=== PATIENT | female | born 1970 | race Caucasian/White ===

== ENCOUNTER → 2017-05-02 14:12 | Outpatient (CLI) | payer OTHER, SELFPAY ==
[2017-04-13 13:53] VITALS: BP 146/95
[2017-04-18 13:37] VITALS: BMI 30.9
--- NOTE | 2017-05-02 14:15 | RAD_ITS ---
STUDY: X-RAY - LEFT ANKLE REASON FOR EXAM: Female, 46 years old. Follow-up TECHNIQUE: 3 view(s) of the ankle. COMPARISON: 04/18/2017. FINDINGS: Normal visualized distal tibia and fibula. Normal medial and lateral malleoli. Normal tibiotalar articulation and ankle mortise. Normal visualized talus. Small plantar calcaneal spur.. The visualized subtalar, talonavicular, calcaneocuboid and tarsal articulations are normal. The soft tissue structures are unremarkable. RAD/Ankle min 3 Views IMPRESSION: Normal x-ray examination of the ankle. Electronically Signed: Anderson Morris DO at 23:58 EST , Service support ,
--- NOTE | 2017-05-02 14:15 | RAD_ITS ---
STUDY: X-RAY - LEFT TIBIA AND FIBULA REASON FOR EXAM: Female, 46 years old. History fracture TECHNIQUE: 2 view(s) of the tibia and fibula were obtained. COMPARISON: 04/13/2017. FINDINGS: Normal visualized tibia. Closed mildly displaced oblique fracture proximal fibula. The soft tissue structures are unremarkable. RAD/Tibia & Fibula 2 Views IMPRESSION: No change to the appearance to the mildly displaced proximal fibular fracture. Electronically Signed: Anderson Morris DO at 23:56 EST , Service support ,
== END ==
PROVIDERS: Family Provider Nurse Practitioner Family; PCP Nurse Practitioner Family; Visit Provider Orthopaedic Surgery
DX: S82.832A Other fracture of upper and lower end of left fibula, initial encounter for closed fracture (principal); X58.XXXA Exposure to other specified factors, initial encounter; Y93.9 Activity, unspecified; Y92.9 Unspecified place or not applicable; Y99.9 Unspecified external cause status
CPT/HCPCS: 73590; 73610

== ENCOUNTER → 2017-05-30 14:03 | Outpatient (CLI) | payer OTHER, SELFPAY ==
--- NOTE | 2017-05-30 14:05 | RAD_ITS ---
STUDY: X-RAY - LEFT TIBIA AND FIBULA REASON FOR EXAM: Female, 46 years old. Fracture TECHNIQUE: 2 view(s) of the tibia and fibula were obtained. COMPARISON: May 02, 2017 FINDINGS: Normal visualized tibia. Stable alignment of a spiral nondisplaced fracture of the proximal fibular diaphysis. Callus at the fracture site has progressed. The soft tissue structures are unremarkable. RAD/Tibia & Fibula 2 Views IMPRESSION: Stable alignment of a healing proximal fibular fracture. Electronically Signed: Mendel Blackwood MD at 7:39 EST Tel , Service support ,
== END ==
PROVIDERS: Family Provider Nurse Practitioner Family; PCP Nurse Practitioner Family; Visit Provider Orthopaedic Surgery
DX: S82.832A Other fracture of upper and lower end of left fibula, initial encounter for closed fracture (principal); X58.XXXA Exposure to other specified factors, initial encounter; Y93.9 Activity, unspecified; Y92.9 Unspecified place or not applicable; Y99.9 Unspecified external cause status
CPT/HCPCS: 73590

== ENCOUNTER → 2018-06-19 11:25 | Outpatient (CLI) | payer OTHER, SELFPAY ==
[2018-06-19 09:05] VITALS: BMI 30.9
--- NOTE | 2018-06-19 11:29 | RAD_ITS ---
STUDY: X-RAY - LEFT TIBIA AND FIBULA REASON FOR EXAM: Female, 47 years old. Fracture one year ago. Pain and swelling in the ankle. TECHNIQUE: 2 view(s) of the tibia and fibula were obtained. COMPARISON: May 30, 2017. FINDINGS: Normal visualized tibia. Interval complete healing of the proximal fibular fracture seen on the prior study. There is no acute fracture or dislocation. The knee and ankle are unremarkable. The soft tissue structures are unremarkable. RAD/Tibia & Fibula 2 Views IMPRESSION: Healed fracture of the proximal fibula without acute abnormality. Electronically Signed: Paul Olivia DO at 15:36 EDT Tel [phone], Service support ,
== END ==
LOC: RAD 11:27
PROVIDERS: Family Provider Internal Medicine; PCP Internal Medicine; Referring Provider Nurse Practitioner Family; Visit Provider Nurse Practitioner Family
DX: S82.832A Other fracture of upper and lower end of left fibula, initial encounter for closed fracture (principal); X58.XXXA Exposure to other specified factors, initial encounter; Y93.9 Activity, unspecified; Y92.9 Unspecified place or not applicable; Y99.9 Unspecified external cause status
CPT/HCPCS: 73590

== ENCOUNTER → 2018-08-26 09:44 | Outpatient (CLI) | payer OTHER, SELFPAY ==
[2018-08-26 08:52] VITALS: BMI 30.7
[2018-08-26 09:47] LABS: Mucous, Urine 0 SEEN /hpf (<or=2+)
[2018-08-26 12:14] LABS: Color, Urine Yellow (Yellow); Glucose, Dipstick Normal (Normal); Ketone-Dipstick Negative (Negative); Leukocyte Esterase-Dipstick 500 /ul (Negative); Nitrite-Dipstick Positive (Negative); Occult Blood-Urine 150 /ul (Negative); Protein-Dipstick 30 mg/dl (Negative); Urine Bilirubin Dipstick Negative (Negative); Urine Clarity Sl. Cloudy (Clear); Urine Urobilinogen Normal (Normal)
[2018-08-26 12:22] LABS: White Blood Cells >100 SEEN /hpf (0-5)
[2018-08-26 12:23] LABS: Red Blood Cells-Urine 5-10 SEEN /hpf (0-5); Squamous Epithelial Cells - UA 5-10 SEEN /hpf (5-10)
[2018-08-26 12:24] LABS: Bacteria 4+ /hpf (None Seen); Renal Epithelial Cells 0-5 SEEN /hpf (0-5)
== END ==
PROVIDERS: Family Provider Internal Medicine; PCP Internal Medicine; Visit Provider Internal Medicine
DX: R10.2 Pelvic and perineal pain (principal)
CPT/HCPCS: 81001

== ENCOUNTER → 2019-12-04 16:14 | Outpatient (CLI) | payer BC, SELFPAY ==
[2019-12-04 16:06] VITALS: BMI 30.5
--- NOTE | 2019-12-04 16:17 | RAD_ITS ---
STUDY: X-RAY - RIGHT FOOT CLINICAL: Female, 49 years old. foot and ankle swelling, no trauma TECHNIQUE: 3 view(s) of the foot. COMPARISON: None. FINDINGS: Normal talus, calcaneus, and tarsal bones. Small plantar calcaneal enthesophyte. Normal visualized subtalar, talonavicular, calcaneocuboid, tarsal and tarsometatarsal articulations. Normal metatarsi. Normal metatarsophalangeal joint of the great toe. Normal tibial and fibular sesamoid bones. Normal interphalangeal joint of the great toe. Normal phalanges of the great toe. Normal second through fifth metatarsophalangeal joints. Normal interphalangeal joints and phalanges of the lesser toes. The soft tissue structures are unremarkable. RAD/Foot min 3 Views IMPRESSION: Normal x-ray examination of the foot. Electronically Signed: Evin Oconnell MD at 16:37 EDT Tel , Service support ,
--- NOTE | 2019-12-04 16:17 | RAD_ITS ---
STUDY: X-RAY - RIGHT ANKLE REASON FOR EXAM: Female, 49 years old. foot and ankle swelling, no trauma TECHNIQUE: 3 view(s) of the ankle. COMPARISON: None. FINDINGS: Normal visualized distal tibia and fibula. Normal medial and lateral malleoli. Normal tibiotalar articulation and ankle mortise. Normal visualized talus and calcaneus. Small plantar calcaneal enthesophyte. The visualized subtalar, talonavicular, calcaneocuboid and tarsal articulations are normal. The soft tissue structures are unremarkable. RAD/Ankle min 3 Views IMPRESSION: Normal x-ray examination of the ankle. Electronically Signed: Evin Oconnell MD at 16:40 EDT Tel , Service support ,
== END ==
PROVIDERS: PCP Internal Medicine; Referring Provider Physician Assistant; Visit Provider Physician Assistant
DX: M79.671 Pain in right foot (principal); M79.89 Other specified soft tissue disorders; M25.571 Pain in right ankle and joints of right foot; M25.471 Effusion, right ankle
CPT/HCPCS: 73610; 73630

== ENCOUNTER → 2020-07-27 12:02 | Outpatient (CLI) | payer BC, SELFPAY ==
[2020-07-27 11:13] VITALS: BMI 30.5
[2020-07-27 15:32] LABS: Absolute Lymphocyte Count 2.57 X10^3/uL (0.83-4.51); Absolute Neutrophil Count 5.8 X10^3/uL (2.0-7.7); Basophil# 0.09 X10^3/uL; Basophil% 0.9 % (0-1); Eosinophil# 0.48 X10^3/uL; Eosinophils% 4.8 % (0-5); Hematocrit 47.7 % (37-47); Hemoglobin 15.3 g/dL (12.0-15.0); Lymphocyte # 2.57 X10^3/ul (0.83-4.51); Lymphocyte % 25.9 % (19-41); Mean Corp Hgb Conc 32.1 g/dL (32-36); Mean Corpuscular Hgb 29.1 pg (27.0-32.0); Mean Corpuscular Volume 90.7 fL (81-99); Mean Platelet Vol. 10.5 fl (6.2-12.0); Monocyte% 9.1 % (0-10); NRBC Flagged by Analyzer 0 % (0-5); Neutrophil # 5.84 X10^3/uL (2.7-7.7); Neutrophil % 58.8 % (47-70); Platelet Count 287 K/mm3 (150-450); RBC Distribution Width CV 12.8 % (11.6-14.6); RBC Distribution Width SD 42.1 fl (35.1-43.9); Red Blood Count 5.26 M/mm3 (4.2-5.4); White Blood Count 9.9 K/mm3 (4.4-11.0)
[2020-07-27 16:10] LABS: Vitamin D,25 Hydroxy 20.4 ng/mL
[2020-07-27 16:22] LABS: ALB/GLOB Ratio 1.1 RATIO (0.9-2.4); AST(SGOT) 21 U/L (15-37); Alanine Aminotransfer ALT/SGPT 35 U/L (13-56); Albumin, Serum 3.9 g/dL (3.2-5.0); Alkaline Phosphatase 80 U/L (45-117); Anion Gap 6 (5-15); BUN 19 mg/dL (7-18); BUN/Creat Ratio 15.8 RATIO (10-20); Calcium,Total 9.7 mg/dL (8.5-10.1); Chloride 103 mmol/L (98-107); Cholesterol 247 mg/dL (200); EST Glomerular Filtration Rate 50 mL/min (>60); Est Glom Filt Rate - Afr Amer 61 mL/min (>60); Globulin 3.6 g/dL (2.2-4.2); Glucose 80 mg/dL (74-106); High Density Lipoprotein 42 mg/dL; Potassium 3.8 mmol/L (3.5-5.1); Protein, Total 7.5 g/dL (6.4-8.2); Sodium Level 140 mmol/L (136-145); T4 Free Direct 0.97 ng/dL (0.76-1.46); Thyroid Stim Hormone (TSH) 1.96 uIU/mL (0.358-3.74); Triglycerides 367 mg/dL; Very Low Density Lipoprotein 73 mg/dL (5-40)
== END ==
PROVIDERS: PCP Internal Medicine; Referring Provider Physician Assistant; Visit Provider Physician Assistant
DX: I10 Essential (primary) hypertension (principal)
CPT/HCPCS: 36415; 80053; 80061; 82306; 84439; 84443; 85025

== ENCOUNTER → 2020-08-06 08:09 | Outpatient (CLI) | payer BC, SELFPAY ==
[2020-07-27 11:13] VITALS: BMI 30.5
--- NOTE | 2020-08-06 08:11 | BI_ITS ---
MAMMOGRAPHY - BILATERAL SCREENING REASON FOR EXAM: Female, 50 years old. Routine annual screening examination. PERTINENT HISTORY: Non-contributory. TECHNIQUE: Digital bilateral breast viviane (3D mammographic acquisition) in the CC and MLO projections. 2-D mediolateral oblique (MLO) and craniocaudad (CC) views of both breasts were obtained. CAD: Full Field Digital Mammography with Computer Added Detection was performed. COMPARISON: Comparison is made with prior examination dated 01/11/2016. FINDINGS: Breast Composition: The breasts are heterogeneously dense, which may obscure small masses. There are no dominant masses or suspicious calcifications. No other significant abnormalities are identified. There has been no significant change since the prior study. BI/SCRN MAMM (CAD)W/VIVIANE BILAT IMPRESSION: Stable bilateral screening mammogram. Yearly follow-up mammogram recommended. (A) ASSESSMENT CATEGORY: BIRADS Category 1: Negative. A letter regarding these results will be sent to the patient by the facility within 30 days. Approximately 10% of breast cancers are not detected by mammography. A normal mammogram should not delay biopsy of a clinically suspicious abnormality. [id number] Electronically Signed: Fredy Maynard MD at 9:05 EDT , Service support ,
--- NOTE | 2020-08-06 08:40 | US_ITS ---
STUDY: ABDOMINAL ULTRASOUND REASON FOR EXAM: Female, 50 years old. RUQ pain . Weight gain. TECHNIQUE: Transabdominal ultrasound was performed with real-time and static blanco scale imaging. TECHNICAL QUALITY: Adequate. COMPARISON: None. FINDINGS: Liver: The liver measures 17 cm. There is increased echogenicity consistent with fatty infiltration. The bile ducts are within normal limits. There is hepatic color flow. The direction of portal flow is hepatopetal. There is no demonstrated mass lesion. Portal vein measurement: Gallbladder: The patient is status post cholecystectomy. Common Bile Duct (C.B.D.): The common bile duct measures 5 mm. Pancreas: There is nonvisualization of the pancreas due to overlying bowel gas. Spleen: Normal size of the spleen. The spleen measures 10.1 cm x 4.2 cm x 6.4 cm. Right Kidney: Normal size of the right kidney. The right kidney measures 10.3 cm x 5.3 cm x 4.5 cm. Normal renal cortex. The right cortex measures 1.2 cm. There is no demonstrated renal mass or cyst. There is no right hydronephrosis. Left Kidney: Normal size of the left kidney. The left kidney measures 10 cm x 4.7 cm x 4.1 cm. Normal renal cortex. The left cortex measures 1.1 cm. There is no demonstrated renal mass or cyst. There is no left hydronephrosis. There is no ascites. US/Abdomen Complete IMPRESSION: Diffuse fatty infiltration of the liver. Electronically Signed: Fredy Maynard MD at 11:00 EDT , Service support ,
== END ==
PROVIDERS: PCP Internal Medicine; Referring Provider Physician Assistant; Visit Provider Physician Assistant
DX: Z12.31 Encounter for screening mammogram for malignant neoplasm of breast (principal); I10 Essential (primary) hypertension; R10.11 Right upper quadrant pain
CPT/HCPCS: 76700; 77063; 77067

== ENCOUNTER 2020-09-03 06:27 | Day surgery (SDC) | payer BC, SELFPAY ==
[2020-07-27 11:13] VITALS: BMI 30.5
[2020-08-12 11:03] VITALS: BMI 30.2
[2020-09-03 06:52] VITALS: BP 114/68; PULSE 77; RESP 18; TEMP 36.3; O2SAT 100; BMI 29.5
--- NOTE | 2020-09-03 06:59 | H&P.OPEN ---
HPI - General HPI Narrative FRANCES CASTANON, is a 50 F who presents for screening colonoscopy. Patient reports he is never had a colonoscopy in the past. She has no abdominal pain or blood in her stool. No family history of colon cancer. [facility] Medical History (Updated 09/03/20 @ 07:[address] Felipe Mondragon MD) Elevated BP without diagnosis of hypertension Hay fever History of edema History of lower leg fracture Smoker Wears partial dentures Home Medications ibuprofen 200 mg capsule 200 mg PO ONCE PRN 11/28/18 [History Last Taken Unknown] hydrochlorothiazide 25 mg tablet 25 mg PO DAILY #90 tab 07/21/20 [Rx Last Taken Unknown] cholecalciferol (vitamin D3) 50 mcg (2,000 unit) capsule 50 mcg PO DAILY 08/12/20 [History Last Taken Unknown] Allergy/AdvReac Type Severity Reaction Status Date / Time No Known Allergies Allergy Verified 09/01/20 11:28 Family History Mother Diabetes Hypertension Father Cancer Surgical History (Updated 09/01/20 @ 11:34 by Yasmin Verdin) Hx of cholecystectomy Social History Smoking Status: Current every day smoker tobacco type: cigarettes alcohol intake: never substance use type: does not use what type of physical activity do you participate in: walking frequency: daily Past Medical/Surgical History Planned Operation Planned Operative Procedure/s: COLONSCOPY OPEN ACCESS Previous Hospitalizations/Surgeries HX Hospitalizations: No Any Problems With Anesthesia: No You/Your Family Experience Fever (Hyperthermia) With Anes: No Cholinesterase deficiency: No Cardiovascular Hx Hypertension: Yes (CONTROLLED WITH MED) Respiratory Hx Sleep Apnea: No Hx Respiratory Tract Infection/Cold (presently): No Do You Snore Loudly (louder than talking or can be heard): No Do You Often Feel Tired/ Fatigued/ Sleepy Dring Daytime?: No Has Anyone Observed You Stop Breathing During Sleep?: No Result (for STOP score): Negative Smoking Status: Current every day smoker Neurological Does patient have nerve stimulator: No Reproduction : No Miscellaneous Recent Exposure to Contagious Disease: No Allergies No Known Allergies Allergy (Verified 09/01/20 11:28) Discharge Is Pt Admitted From a Longterm, or a Nursing Home: No After D/C, Where Do you Plan to Go: Return Home Vital Signs Vital Signs Vital Signs: 09/03/20 06:50 09/03/20 06:52 Temperature 97.4 F L Temperature Source Temporal Pulse Rate 77 Respiratory Rate 18 Respiratory Pattern Normal Blood Pressure 114/68 Blood Pressure Mean 83 Blood Pressure Source Monitor Blood Pressure Position Semi-Fowlers Blood Pressure Location Left Arm Pulse Ox 100 Oxygen Delivery Method Room Air Weight Weight: 177 lb 7.554 oz Body Mass Index (BMI) 29.5 Physical Exam Const alert and oriented x3 Resp normal respiratory effort and normal air movement Cardio regular rate and regular rhythm GI soft to palpation, non-tender and non-distended Assessment & Plan Assessment/Plan (1) Screen for colon cancer: PLAN: Patient here for screening colonoscopy I explained endoscopy in detail to the patient. I explained the risks including but not limited to stroke or heart attack with anesthesia, perforation of the GI tract, bleeding, infection. I explained that any of these could necessitate further emergency surgery. The patient understands and all questions were answered sufficiently. The patient wishes to proceed with procedure. Felipe Mondragon MD Pager: [facility] [address] [place] [address], [address] [place] [address] Office: Surgery Risks - Colonoscopy Risks Include but are not Limited To: Risks include but are not limited to: Bleeding, perforation requiring further surgery, inability to complete colonoscopy requiring barium enema.
[2020-09-03] MEDS: Lactated Ringers 1,000 ML 100 ML IV (07:04)
--- NOTE | 2020-09-03 08:01 | OP.CCLET_ITS ---
09/03/2020 Jazzy Yañez MD [address] [place] [address] [place] [address] Re : Colonoscopy procedure for Arabella Mo Dear Dr. Yañez This procedure was performed on Thursday, September 03, 2020. My impressions and recommendations are as follows: Impressions : - The entire examined colon is normal on direct and retroflexion views. - No specimens collected. Recommendations : - Discharge patient to home. - Resume previous diet. - Continue present medications. - Repeat colonoscopy in 10 years for screening purposes. My findings are described in the full procedure note, which is enclosed. If I can be of further assistance, please feel free to contact me at Doctor phone number(s): , Work: . Sincerely, Felipe Mondragon MD 09/03/2020 8:00:36 AM This report has been signed electronically.
--- NOTE | 2020-09-03 08:01 | OP.COLON_ITS ---
Patient Name: Arabella Mo Procedure Date: 09/03/2020 7:07 AM Date of : 1970 Age: 50 Procedure: Colonoscopy Indications: Screening for colorectal malignant neoplasm Providers: Felipe Mondragon MD Referring MD: Jazzy Yañez MD Medicines: Monitored Anesthesia Care Patient Profile: This is a 50 year old female. Refer to note in patient chart for documentation of history and physical. Last Colonoscopy: none. The patient's first colonoscopy is today. Complications: No immediate complications. Procedure: Pre-Anesthesia Assessment: - Prior to the procedure, a History and Physical was performed, and patient medications and allergies were reviewed. The patient's tolerance of previous anesthesia was also reviewed. The risks and benefits of the procedure and the sedation options and risks were discussed with the patient. All questions were answered, and informed consent was obtained. Prior Anticoagulants: The patient has taken no previous anticoagulant or antiplatelet agents. After reviewing the risks and benefits, the patient was deemed in satisfactory condition to undergo the procedure. After I obtained informed consent, the scope was passed under direct vision. Throughout the procedure, the patient's blood pressure, pulse, and oxygen saturations were monitored continuously. The pediatric colonoscope was introduced through the anus and advanced to the cecum, identified by appendiceal orifice and ileocecal valve. The colonoscopy was performed without difficulty. The patient tolerated the procedure well. The quality of the bowel preparation was adequate to identify polyps 6 mm and larger in size. Scope In: 7:34:21 AM Scope Withdrawal Time 0 hours 6 minutes 57 seconds Scope Out: 7:56:24 AM Total Procedure Duration Time 0 hours 22 minutes 3 seconds Findings: The entire examined colon appeared normal on direct and retroflexion views. Impression: - The entire examined colon is normal on direct and retroflexion views. - No specimens collected. Recommendation: - Discharge patient to home. - Resume previous diet. - Continue present medications. - Repeat colonoscopy in 10 years for screening purposes. Procedure Code(s): --- Professional --- 05192, Colonoscopy, flexible; diagnostic, including collection of specimen(s) by brushing or washing, when performed (separate procedure) Diagnosis Code(s): --- Professional --- Z12.11, Encounter for screening for malignant neoplasm of colon CPT copyright 2017 [employer]. All rights reserved. The codes documented in this report are preliminary and upon chief of vital statistics review may be revised to meet current compliance requirements. Felipe Mondragon MD 09/03/2020 8:00:36 AM This report has been signed electronically. Number of Addenda: 0 Note Initiated On: 09/03/2020 7:07 AM
[2020-09-03 08:02] VITALS: BP 107/64; BP 114/68; PULSE 69; RESP 14; TEMP 36.4; O2SAT 98
[2020-09-03 08:10] VITALS: BP 114/68; BP 119/71; PULSE 66; RESP 16; O2SAT 100
[2020-09-03 08:15] VITALS: BP 114/68; BP 123/60; PULSE 62; RESP 18; O2SAT 100
[2020-09-03 08:18] VITALS: BP 114/68; BP 121/66; PULSE 54; RESP 18; TEMP 36.4; O2SAT 100
[2020-09-03 08:30] VITALS: BP 114/68
== END 2020-09-03 08:44 ==
LOC: EN 06:27 → AC 06:29
PROVIDERS: PCP Internal Medicine; Referring Provider Internal Medicine; Visit Provider Surgery
PROC: 0DJD8ZZ Inspection of Lower Intestinal Tract, Via Natural or Artificial Opening Endoscopic (ICD-10-PCS; CPT 45378; principal; 2020-09-03 07:25)
DX: Z12.11 Encounter for screening for malignant neoplasm of colon (principal); R03.0 Elevated blood-pressure reading, without diagnosis of hypertension; Z20.822 Contact with and (suspected) exposure to COVID-19; F17.210 Nicotine dependence, cigarettes, uncomplicated; Z79.899 Other long term (current) drug therapy
CPT/HCPCS: 45378; 87426; C9803; J7120; J2405

== ENCOUNTER → 2021-08-24 | Outpatient (CLI) | payer BC, SELFPAY ==
[2021-08-24 12:22] LABS: Absolute Lymphocyte Count 2.06 X10^3/uL (0.83-4.51); Absolute Neutrophil Count 6.1 X10^3/uL (2.0-7.7); Basophil# 0.07 X10^3/uL; Basophil% 0.8 % (0-1); Eosinophils% 4.3 % (0-5); Hematocrit 46.7 % (37-47); Hemoglobin 15.4 g/dL (12.0-15.0); Lymphocyte # 2.06 X10^3/ul (0.83-4.51); Lymphocyte % 22.1 % (19-41); Mean Corpuscular Hgb 30.1 pg (27.0-32.0); Mean Corpuscular Volume 91.4 fL (81-99); Mean Platelet Vol. 10.7 fl (6.2-12.0); Monocyte# 0.71 X10^3/uL; Monocyte% 7.6 % (0-10); NRBC Flagged by Analyzer 0 % (0-5); Neutrophil # 6.05 X10^3/uL (2.7-7.7); Neutrophil % 64.8 % (47-70); Platelet Count 285 K/mm3 (150-450); RBC Distribution Width CV 12.5 % (11.6-14.6); RBC Distribution Width SD 41.1 fl (35.1-43.9); Red Blood Count 5.11 M/mm3 (4.2-5.4); White Blood Count 9.3 K/mm3 (4.4-11.0)
[2021-08-24 12:45] LABS: ALB/GLOB Ratio 1.1 RATIO (0.9-2.4); AST(SGOT) 19 U/L (15-37); Alanine Aminotransfer ALT/SGPT 31 U/L (13-56); Albumin, Serum 3.9 g/dL (3.2-5.0); Alkaline Phosphatase 74 U/L (45-117); Anion Gap 9 (5-15); BUN 25 mg/dL (7-18); BUN/Creat Ratio 18.8 RATIO (10-20); Calcium,Total 9.5 mg/dL (8.5-10.1); Chloride 103 mmol/L (98-107); Cholesterol 237 mg/dL (200); Creatinine, Serum 1.33 mg/dL (0.55-1.02); EST Glomerular Filtration Rate 44 mL/min (>60); Est Glom Filt Rate - Afr Amer 54 mL/min (>60); Globulin 3.5 g/dL (2.2-4.2); Glucose 100 mg/dL (74-106); High Density Lipoprotein 38 mg/dL; Potassium 3.3 mmol/L (3.5-5.1); Protein, Total 7.4 g/dL (6.4-8.2); Sodium Level 140 mmol/L (136-145); Triglycerides 364 mg/dL; Very Low Density Lipoprotein 73 mg/dL (5-40)
== END | disposition home or self-care (01) ==
LOC: BIMLAB 08:31
PROVIDERS: PCP Internal Medicine; Visit Provider Internal Medicine
DX: I10 Essential (primary) hypertension (principal); M10.9 Gout, unspecified
CPT/HCPCS: 36415; 80053; 80061; 84550; 85025

== ENCOUNTER → 2021-09-14 | Outpatient (CLI) | payer BC, SELFPAY ==
--- NOTE | 2021-09-14 12:48 | RAD_ITS ---
INDICATION: Right 1st MTP pain, possible gout EXAMINATION/TECHNIQUE: X-RAY - RIGHT XR Foot Min 3 Views 3 VIEWS COMPARISON: 12/04/2019 FINDINGS: No acute fracture or subluxation. Joint spaces are intact. Plantar calcaneal spurring. Minimal soft tissue swelling overlying the first MTP joint. No destructive or erosive osseous changes. No radiopaque foreign bodies. RAD/Foot min 3 Views IMPRESSION: Minimal soft tissue swelling overlying the first MTP joint without destructive or erosive changes to suggest underlying gout. Electronically Signed: Arsen Ingram, at 16:16 EDT ,
[2021-09-14 15:46] LABS: Anion Gap 3 (5-15); BUN 22 mg/dL (7-18); BUN/Creat Ratio 18.2 RATIO (10-20); Calcium,Total 9.4 mg/dL (8.5-10.1); Chloride 106 mmol/L (98-107); Cholesterol 211 mg/dL (200); Creatinine, Serum 1.21 mg/dL (0.55-1.02); EST Glomerular Filtration Rate 49 mL/min (>60); Est Glom Filt Rate - Afr Amer 60 mL/min (>60); Free T3 2.8 pg/mL (2.18-3.98); Glucose 80 mg/dL (74-106); High Density Lipoprotein 36 mg/dL; Sodium Level 140 mmol/L (136-145); T4 Free Direct 0.95 ng/dL (0.76-1.46); Thyroid Stim Hormone (TSH) 1.96 uIU/mL (0.358-3.74); Triglycerides 360 mg/dL; Uric Acid 4.9 mg/dL (2.6-6.0); Very Low Density Lipoprotein 72 mg/dL (5-40)
== END | disposition home or self-care (01) ==
PROVIDERS: PCP Internal Medicine; Visit Provider Physician Assistant
DX: M79.674 Pain in right toe(s) (principal); E04.1 Nontoxic single thyroid nodule; M10.9 Gout, unspecified; E78.5 Hyperlipidemia, unspecified
CPT/HCPCS: 36415; 73630; 80048; 80061; 84439; 84443; 84481; 84550

== ENCOUNTER → 2022-07-14 | Outpatient (CLI) | payer BC, SELFPAY ==
--- NOTE | 2022-07-14 12:04 | EKG12_ITS ---
Test Reason : PRE OP Blood Pressure : / mmHG Vent. Rate : 076 BPM Atrial Rate : 076 BPM P-R Int : 176 ms QRS Dur : 078 ms QT Int : 416 ms P-R-T Axes : 001 -35 021 degrees QTc Int : 468 ms Normal sinus rhythm Left axis deviation Abnormal ECG Confirmed by MARIE GARCIA, VIV ([id number]), scientific publications editor RACHANA REDDY ([id number]) on 07/17/2022 10:45:23 AM Referred By: Dank Harris Confirmed By:VIV SALAZAR MD
[2022-07-14 12:32] LABS: Hematocrit 47.3 % (37-47); Hemoglobin 15.6 g/dL (12.0-15.0); Mean Platelet Vol. 9.8 fl (6.2-12.0); Platelet Count 296 K/mm3 (150-450); RBC Distribution Width CV 12.3 % (11.6-14.6); RBC Distribution Width SD 40.5 fl (35.1-43.9); White Blood Count 8.8 K/mm3 (4.4-11.0)
[2022-07-14 12:55] LABS: Anion Gap -2 (5-15); BUN 15 mg/dL (7-18); BUN/Creat Ratio 13.4 RATIO (10-20); Calcium,Total 9.3 mg/dL (8.5-10.1); Chloride 109 mmol/L (98-107); Creatinine, Serum 1.12 mg/dL (0.55-1.02); EST Glomerular Filtration Rate 54 mL/min (>60); Est Glom Filt Rate - Afr Amer 65 mL/min (>60); Glucose 81 mg/dL (74-106); Potassium 3.7 mmol/L (3.5-5.1); Sodium Level 138 mmol/L (136-145)
== END | disposition home or self-care (01) ==
PROVIDERS: PCP Internal Medicine; Referring Provider Otolaryngology; Visit Provider Otolaryngology
DX: Z01.818 Encounter for other preprocedural examination (principal)
CPT/HCPCS: 36415; 80048; 85027; 93005

== ENCOUNTER → 2022-08-14 | Outpatient (CLI) | payer BC, SELFPAY ==
--- NOTE | 2022-08-14 11:00 | PHA_PTH ---
PATIENT: FRANCES CASTANON LOC: [facility] U#:[id number] AGE/SX: 52/F ROOM: RE08/14/[address]: Dr. Dank Harris MD : 1970 BED: DIS: 08/14/2022 SPEC #: [id number] RECD: 08/14/22 15:37 STATUS: TALI REQ #: [id number] EVELINE: 08/14/22 11:[address]: Dank Harris DEPT: SURGICAL PATHOLOGY RECD BY: Mya Encarnacion ENTERED: 08/15/22 07:50 SP TYPE: PHARYNX BX OTHR DR: Dr. Jazzy Yañez MD [facility] Tissues: Pharynx, NOS Procedures: Surgery Specimen Level IV HEADER OPERATION: Excision oropharyngeal mass left PRE-OP DIAGNOSIS: Oropharyngeal mass TISSUE SUBMITTED: Oropharyngeal mass MICROSCOPIC DIAGNOSIS Left oropharyngeal mass, biopsy: Squamous papilloma. AM:lisa 08/16/2022 MICROSCOPIC DESCRIPTION Slides are reviewed. GROSS DESCRIPTION Received in fixative is one container labeled with the patient's name and designated oropharyngeal mass. The specimen consists of a piece of todd mucosal tissue measuring 1.0 x 0.5 x 0.4 cm. The specimen is inked, bisected and submitted entirely in one cassette. / SJ:rg 08/15/2022 TC:1 CPT: 69810
== END | disposition home or self-care (01) ==
PROVIDERS: PCP Internal Medicine; Referring Provider Otolaryngology; Visit Provider Otolaryngology
DX: R22.1 Localized swelling, mass and lump, neck (principal)
CPT/HCPCS: 88305

== ENCOUNTER → 2024-10-06 | Outpatient (CLI) | payer BC, SELFPAY ==
[2024-10-06 12:33] LABS: Hematocrit 48.0 % (37-47); Hemoglobin 15.9 g/dL (12.0-15.0); Mean Corp Hgb Conc 33.1 g/dL (32-36); Mean Corpuscular Volume 88.2 fL (81-99); Mean Platelet Vol. 10.0 fl (6.2-12.0); Platelet Count 333 K/mm3 (150-450); RBC Distribution Width CV 13.1 % (11.6-14.6); RBC Distribution Width SD 41.4 fl (35.1-43.9); Red Blood Count 5.44 M/mm3 (4.2-5.4); White Blood Count 17.3 K/mm3 (4.4-11.0)
[2024-10-06 13:22] LABS: Free T3 2.3 pg/mL (2.18-3.98)
[2024-10-06 13:23] LABS: Anion Gap 12 (5-15); BUN 31 mg/dL (4-19); BUN/Creat Ratio 21.6 RATIO (10-20); CRP < 3.00 mg/L (0.0-3.0); Calcium,Total 9.4 mg/dL (7.6-11.0); Carbon Dioxide 25.3 mmol/L (21.0-32.0); Chloride 102 mmol/L (98-108); Glucose 139 mg/dL (70-99); Potassium 4.0 mmol/L (3.3-5.1); Uric Acid 9.8 mg/dL (2.6-6.0)
== END | disposition home or self-care (01) ==
LOC: LAB 11:12
PROVIDERS: PCP Internal Medicine; Referring Provider Nurse Practitioner Family; Visit Provider Nurse Practitioner Family
DX: M10.9 Gout, unspecified (principal); E04.1 Nontoxic single thyroid nodule
CPT/HCPCS: 36415; 80048; 84439; 84443; 84481; 84550; 85027; 86140

== ENCOUNTER 2024-10-08 08:23 | Emergency (ER) | payer BC, SELFPAY ==
[2024-10-08 08:24] VITALS: BP 151/80; PULSE 93; RESP 16; TEMP 36.6; O2SAT 100; BMI 30.4
--- NOTE | 2024-10-08 09:00 | EDS_ITS ---
HPI History of Present Illness Chief Complaint: General Illness Informant: patient Narrative Narrative: Presents for evaluation states not feeling well. Diarrhea started 5 days ago for per day had a couple today nonbloody. States nausea no vomiting. She has had headache. Symptoms started 2 days after being started on prednisone for gout by her PCP she stopped her prednisone 2 days ago. No recent antibiotics. She is never been on prednisone in the past. No fever chills or sweats. States lightheaded symptoms she is trying to keep up with oral fluids. No urinary symptoms. No upper respiratory symptoms. PFSH PFSH Medical History Breast cancer screening Thyroid nodule Gout Wears partial dentures Smoker History of edema Hay fever Elevated BP without diagnosis of hypertension History of lower leg fracture Home Medications ?Medication ?Instructions ?Recorded ?Last Taken ?Type miscellaneous medical supply #1 ea 09/14/21 Unknown Rx (Blood Pressure Cuff) prednisone 10 mg tablet 10 mg PO DIRECTED #48 tab s 09/30/24 Unknown Rx allopurinol 100 mg tablet 100 mg PO QDAY #30 tabs 09/23 07/18 Unknown Rx famotidine 20 mg tablet 20 mg PO BID #20 TABLETS Unknown Rx ondansetron 4 mg disintegrating 4 mg PO Q8H PRN PRN Na usea #10 tabs 10/08/24 Unknown Rx tablet Allergy/AdvReac Type Severity Reaction Status Date / Time No Known Allergies Allergy Verified 10/08/24 09:48 Family History Mother Diabetes Hypertension Father Cancer Surgical History Hx of cholecystectomy Social History Smoking Status: Former smoker alcohol intake: never substance use type: does not use what type of physical activity do you participate in: walking frequency: daily ROS ROS ED Constitutional Constitutional ED: Denies fever(s) Cardiovascular Cardiovascular: Reports other Details: Lightheaded ; Denies chest pain Respiratory/Chest Respiratory/Chest: Denies cough Gastrointestinal Gastrointestinal: Reports diarrhea and nausea; Denies vomiting Musculoskeletal Musculoskeletal: Denies none Integumentary Denies rash or wounds Neurologic Neurologic: Reports headache(s); Denies weakness EXAM Physical Exam Const Vital Signs: 10/08/24 08:24 10/08/24 09:46 10/08/24 10:24 Temperature 97.8 F Temperature Source Temporal Pulse Rate 93 64 Respiratory Rate 16 16 Respiratory Effort Normal Non-Labored Respiratory Pattern Normal Blood Pressure 151/80 H 126/66 H Blood Pressure Mean 103 86 Pulse Ox 100 99 Oxygen Delivery Method Room Air Room Air 10/08/24 11:33 Temperature 97.8 F Temperature Source Pulse Rate 75 Respiratory Rate 16 Respiratory Effort Respiratory Pattern Blood Pressure 132/75 H Blood Pressure Mean 94 Pulse Ox 99 Oxygen Delivery Method Positive well nourished and well developed General Appearance ED: well developed HEENT normocephalic and atraumatic Eyes General Eye ED: Yes normal appearance of both eyes Neck full ROM Neck Narrative: No meningismus Resp normal respiratory effort and normal air movement Cardio regular rate and regular rhythm GI soft to palpation GI Narrative: Negative Wagner's or McBurney's tenderness. No guarding or rebound. Extremity normal to inspection and full ROM Neuro oriented x3 and CN's II-XII intact bilaterally Neuro Narrative: No focal deficits Skin no rashes or lesions noted and no wounds MDM MDM MDM Narrative Medical decision making narrative: Interventions / MDM: Differential diagnosis: Diarrhea, abdominal pain, lightheaded, electrolyte abnormalities Diagnosis considered but do not suspect: Diverticulitis however CT negative. My EKG interpretation: Sinus rhythm 83, no ST or T wave changes QTc 427. Imaging independently reviewed and interpreted by myself: CT abdomen pelvis IV contrast: Diverticulosis without diverticulitis. Also read by radiology. External documents reviewed: N/A Test considered but not ordered:N/A ED course: Patient diarrhea for 5 days nonbloody lightheaded symptoms. Reports headache with no meningismal findings. EKG normal IV established for abdominal labs will give Zofran and Pepcid. Will reevaluate. 1020: White count returned at 18. She had lab work yesterday white count was 17. She was on steroids. However she reports pain in her lower abdomen with her diarrhea. She has a nonsurgical abdomen. With her leukocytosis I will order CT abdomen pelvis for further evaluation. CT scan negative. Clinically feeling better is tolerating oral fluids. Encourage people continue oral fluids for hydration. Outpatient follow-up with her doctor. Re-evaluation: stable Disposition discussed with patient/family/significant other: Patient Case discussed with consulting clinician: N/A This note was generated with [employer] dictation software. It may contain incorrect words, spelling, and punctuation that were not noted in checking the note before signing. Lab Data Attestation: I reviewed the patient's lab results. Labs: Laboratory Results - last 24 hr 10/08/24 09:46 WBC 18.3 H RBC 5.64 H Hgb 16.4 H Hct 49.9 H MCV 88.5 MCH 29.1 MCHC 32.9 RDW Std Deviation 42.8 RDW Coeff of Mackenzie 13.2 Plt Count 306 MPV 9.8 Immature Gran % (Auto) 2.200 H Neut % (Auto) 76.3 H Lymph % (Auto) 12.6 L Jones % (Auto) 6.7 Eos % (Auto) 1.6 Baso % (Auto) 0.6 Absolute Neuts (auto) 14.0 H Absolute Lymphs (auto) 2.31 Nucleated RBC % 0 Sodium 140 Potassium 4.1 Chloride 102 Carbon Dioxide 29.1 Anion Gap 9 BUN 26 H Creatinine 1.39 H Estim Creat Clear Calc 48.04 L Est GFR (MDRD) Non-Af 45 L BUN/Creatinine Ratio 18.3 Glucose 89 Calcium 9.1 Total Bilirubin 0.43 AST 29 ALT 45 H Alkaline Phosphatase 83 Total Protein 6.6 Albumin 4.0 Globulin 2.5 Albumin/Globulin Ratio 1.6 Lipase 55 Radiography Diagnostic Testing: Clinical Impression(s) from Imaging Studies Abdomen/Pelvis CT 10/08/24 10:30 IMPRESSION: 1. Hepatomegaly with fatty infiltration. 2. No obstructive uropathy. 3. Colonic diverticulosis without acute diverticulitis. Reading Location: [facility] Discharge Plan Triage Chief Complaint: General Illness ED Provider: Brendan Patricia Dx/Rx/DC Orders Clinical Impression: Abdominal pain, Diarrhea, Dehydration, Renal insufficiency Instructions: Abdominal Pain, ED Dehydration (Adult), ED Renal Insufficiency Prescriptions: New famotidine 20 mg tablet 20 mg PO BID Qty: 20 0RF ondansetron 4 mg tablet,disintegrating 4 mg PO Q8H PRN PRN (Reason: Nausea) Qty: 10 0RF No Action (DME) Blood Pressure Cuff Misc See Rx Instructions .Route Qty: 1 0RF Rx Instructions: Check daily prednisone 10 mg tablet 10 mg PO DIRECTED Qty: 48 0RF Rx Instructions: see taper instructions see taper instructions Days 1-4 take 6 tabs daily days 5-8 take 4 tabs daily, days 9-12 take 2 tabs daily allopurinol 100 mg tablet 100 mg PO QDAY Qty: 30 0RF Stand Alone Forms: ED Work / School Excuse Primary Care Provider: Jazzy Yañez Referrals: Jazzy Yañez MD [Primary Care Provider] - Activity Restrictions/Additional Instructions: CT abdomen pelvis diverticulosis without diverticulitis. Labs white count was 18 however you are been on steroids. No infectious findings noted. Your creatinine 1.39 today decreased from yesterday. Continue oral fluids for hydration. Follow-up your doctor recheck labs. Take medication as prescribed. Print Language: Mongolian Disposition Disposition: Home, Self Care Discharge Date/Time: 10/08/24 11:34
[2024-10-08] MEDS: 0.9% Normal Saline (1000mL) 1,000 ML 999 ML IV (09:44)
[2024-10-08] MEDS: Famotidine 200 MG/20 ML MDV 20 MG in 0.9% Normal Saline (Pres. free 8 ML 300 MG IV (09:45)
[2024-10-08 10:08] LABS: Hematocrit 49.9 % (37-47); Hemoglobin 16.4 g/dL (12.0-15.0); Immature Granulocytes Count 0.410 X10^3/uL (0.0-0.0); Mean Corp Hgb Conc 32.9 g/dL (32-36); Mean Corpuscular Volume 88.5 fL (81-99); Mean Platelet Vol. 9.8 fl (6.2-12.0); NRBC Flagged by Analyzer 0 % (0-5); Platelet Count 306 K/mm3 (150-450); RBC Distribution Width CV 13.2 % (11.6-14.6); RBC Distribution Width SD 42.8 fl (35.1-43.9); Red Blood Count 5.64 M/mm3 (4.2-5.4); White Blood Count 18.3 K/mm3 (4.4-11.0)
[2024-10-08 10:24] VITALS: BP 126/66; PULSE 64; RESP 16; O2SAT 99
--- NOTE | 2024-10-08 10:30 | CT_ITS ---
EXAM: CT Abdomen and Pelvis With Intravenous Contrast CLINICAL INDICATION: ABD PAIN TECHNIQUE: Axial computed tomography images of the abdomen and pelvis with intravenous contrast. This CT exam was performed using one or more of the following dose reduction techniques: automated exposure control, adjustment of the mA and/or kV according to patient size, and/or use of iterative reconstruction technique. COMPARISON: No relevant prior studies available. FINDINGS: LUNG BASES: Unremarkable. No mass. No consolidation. ABDOMEN: LIVER: Hepatomegaly with fatty infiltration. GALLBLADDER AND BILE DUCTS: Gallbladder is surgically absent. No ductal dilation. PANCREAS: Unremarkable. No mass. No ductal dilation. SPLEEN: Unremarkable. No splenomegaly. ADRENALS: Unremarkable. No mass. KIDNEYS AND URETERS: Unremarkable. No stones within either kidney. No hydronephrosis. STOMACH AND BOWEL: Colonic diverticulosis without acute diverticulitis. No obstruction. PELVIS: APPENDIX: No findings to suggest acute appendicitis. BLADDER: Unremarkable. No mass. REPRODUCTIVE: Unremarkable as visualized. ABDOMEN and PELVIS: INTRAPERITONEAL SPACE: Unremarkable. No free air. No significant fluid collection. BONES/JOINTS: Moderate endplate degenerative changes and disc degeneration of L4-5. No acute fracture. No dislocation. SOFT TISSUES: Unremarkable. VASCULATURE: Unremarkable. No abdominal aortic aneurysm. LYMPH NODES: Unremarkable. No enlarged lymph nodes. CT/Abdomen/Pelvis W IV Cont ONLY IMPRESSION: 1. Hepatomegaly with fatty infiltration. 2. No obstructive uropathy. 3. Colonic diverticulosis without acute diverticulitis. Reading Location[facility]
--- NOTE | 2024-10-08 10:30 | CT_ITS ---
EXAM: CT Abdomen and Pelvis With Intravenous Contrast CLINICAL INDICATION: ABD PAIN TECHNIQUE: Axial computed tomography images of the abdomen and pelvis with intravenous contrast. This CT exam was performed using one or more of the following dose reduction techniques: automated exposure control, adjustment of the mA and/or kV according to patient size, and/or use of iterative reconstruction technique. COMPARISON: No relevant prior studies available. FINDINGS: LUNG BASES: Unremarkable. No mass. No consolidation. ABDOMEN: LIVER: Hepatomegaly with fatty infiltration. GALLBLADDER AND BILE DUCTS: Gallbladder is surgically absent. No ductal dilation. PANCREAS: Unremarkable. No mass. No ductal dilation. SPLEEN: Unremarkable. No splenomegaly. ADRENALS: Unremarkable. No mass. KIDNEYS AND URETERS: Unremarkable. No stones within either kidney. No hydronephrosis. STOMACH AND BOWEL: Colonic diverticulosis without acute diverticulitis. No obstruction. PELVIS: APPENDIX: No findings to suggest acute appendicitis. BLADDER: Unremarkable. No mass. REPRODUCTIVE: Unremarkable as visualized. ABDOMEN and PELVIS: INTRAPERITONEAL SPACE: Unremarkable. No free air. No significant fluid collection. BONES/JOINTS: Moderate endplate degenerative changes and disc degeneration of L4-5. No acute fracture. No dislocation. SOFT TISSUES: Unremarkable. VASCULATURE: Unremarkable. No abdominal aortic aneurysm. LYMPH NODES: Unremarkable. No enlarged lymph nodes. CT/Abdomen/Pelvis W IV Cont ONLY IMPRESSION: 1. Hepatomegaly with fatty infiltration. 2. No obstructive uropathy. 3. Colonic diverticulosis without acute diverticulitis. Reading Location[facility]
[2024-10-08 10:33] LABS: AST(SGOT) 29 U/L (<=31); Alanine Aminotransfer ALT/SGPT 45 U/L (<=34); Albumin, Serum 4.0 g/dL (3.5-5.0); Alkaline Phosphatase 83 U/L (35-104); Anion Gap 9 (5-15); BUN 26 mg/dL (4-19); BUN/Creat Ratio 18.3 RATIO (10-20); Calcium,Total 9.1 mg/dL (7.6-11.0); Carbon Dioxide 29.1 mmol/L (21.0-32.0); Chloride 102 mmol/L (98-108); Estimated Creatinine Clearance 48.04 ml/min (50-250); Globulin 2.5 g/dL (2.2-4.2); Glucose 89 mg/dL (70-99); Lipase 55 U/L (13-75); Potassium 4.1 mmol/L (3.3-5.1)
[2024-10-08 11:33] VITALS: BP 132/75; PULSE 75; RESP 16; TEMP 36.6; O2SAT 99
--- OUTSIDE RECORDS SUMMARY | 2024-10-08 20:08 | XMS RPT_ITS | CCD ---
Author Organization [facility] CliniSyut Care Team Providers Care [employer] Stock [employer]ader Name Role Phone SULLY GARCIA Unavailable Unavailable PHYSICIAN, NONE Unavailable Unavailable SULLY GARCIA Unavailable Unavailable PHYSICIAN, NONE Unavailable Unavailable Dr. Jazzy Yañez Primary Care Provider [phone] Dr. Jazzy Yañez Attending Provider [phone] Dr. Jazzy Yañez Referring Provider [phone] ASHLEIGH Longo Attending Provider Unavailab le Otilio Efmiguel ángelongleonel Primary Care Unavailable PROVIDER, UNKNOWN Referring Unavailable Anibal Ramirez Attending Unavailable Otilio Efrosanne Primary Care Unavailable PROVIDER, UNKNOWN Referring Unavailable Dank Verma Attending Unavailable Dr. Jazzy Yañez Primary Care Provider [phone] Dr. Sebastian Harp Attending Provider Dr. Dank Harris Referring Provider Oleghe, Efewongbe B Unavailable Oleghe, Efewongbe B Primary Care Provider Oleghe, Efewongbe B Primary Care Provider Dr. Jazzy Yañez MD Primary Care Provider Dr. 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 Brendan Patricia DO Emergency Provider Medications Current Medications Medication Drug Class(es) Dates Sig (Normalized) Sig (Original) allopurinol 100 mg oral tablet (6 sources) Xanthine Oxidase Inhibitor Start: 10-06-2024 take 1 tablet by mouth once daily Allopurinol 100 mg tablet Active 100 mg PO daily 30 0 October 06, 2024 12:00am Start: 08-24-2021 End: 09-29-2024 take 1 tablet by mouth once daily Allopurinol 100 mg tablet Discontinued 100 mg PO DAILY 30 2 August 24, 2021 12:00am September 29, 2024 3:59pm famotidine 20 mg oral tablet (1 source) Histamine-2 Receptor Antagonist Start: 10-08-2024 take 1 tablet by mouth twice daily Famotidine 20 mg tablet Active 20 mg PO TWICE A DAY 20 0 October 08, 2024 12:00am Miscellaneous Medical Supply (Blood Pressure Cuff) misc (4 sources) Start: 09-14-2021 Miscellaneous Medical Supply (Blood Pressure Cuff) misc Active 0 .Route 1 0 September 14, 2021 12:00am Hypertension Essential (primary) hypertension blood pressure Check daily Start: 09-14-2021 Miscellaneous Medical Supply (Blood Pressure Cuff) misc Active 0 .Route 1 September 14, 2021 12:00am Check daily ondansetron 4 mg disintegrating oral tablet (1 source) Serotonin-3 Receptor Antagonist Start: 10-08-2024 take 1 tablet by mouth every eight hours as needed for nausea Ondansetron 4 mg tablet,disintegrating Active 4 mg PO EVERY 8 HOURS NEEDED as needed for Nausea 10 0 October 08, 2024 12:00am predniSONE 10 mg oral tablet (7 sources) Start: 09-30-2024 take 6 tablets by mouth once daily Prednisone 10 mg tablet Active 10 mg PO As Directed 48 0 September 30, 2024 1:04pm see taper instructions see taper instructions Days 1-4 take 6 tabs daily days 5-8 take 4 tabs daily, days 9-12 take 2 tabs daily Start: 09-29-2024 End: 09-30-2024 Prednisone 10 mg tablet Discontinued 10 mg PO As Directed 48 0 September 29, 2024 12:00am September 30, 2024 1:04pm see taper instructions Start: 09-14-2021 End: 09-29-2024 take 4 tablets by mouth once daily at mealtime Prednisone 10 mg tablet Discontinued 10 mg PO DAILY 30 September 14, 2021 12:00am September 29, 2024 3:58pm Take 4 tablets for 3 days; Take 3 tablets for 3 days; Take 2 tablets for 3 days; Take 1 tablet for 3 days Take with food or milk Completed/Discontinued Medications Medication Drug Class(es) Dates Sig (Normalized) Sig (Original) acetaminophen 325 mg / oxyCODONE hydrochloride 5 mg oral tablet (5 sources) Opioid Agonist Start: 04-13-2017 End: 04-18-2017 Oxycodone-Acetamino phen 1 TABLET tablet Discontinued 1 {tbl} PO EVERY 6 HOURS NEEDED as needed for Pain April 13, 2017 1:00am April 18, 2017 2:38pm Fracture of fibula Start: 04-13-2017 End: 04-18-2017 take 1 tablet by mouth every six hours as needed Oxycodone-Acetaminophen Discontinued 1 TABLET PO EVERY 6 HOURS NEEDED April 13, 2017 1:00am April 18, 2017 2:38pm cholecalciferol 0.05 mg oral capsule (5 sources) Vitamin D Start: 08-12-2020 End: 08-24-2021 take 1 capsule by mouth once daily Cholecalciferol (Vitamin D3) 50 mcg (2,000 unit) capsule Discontinued 50 ug PO DAILY August 12, 2020 12:00am August 24, 2021 8:08am ciprofloxacin 500 mg oral tablet (5 sources) Quinolone Antimicrobial Start: 08-26-2018 End: 11-28-2018 take 1 tablet by mouth twice daily Ciprofloxacin Hcl 500 mg tablet Discontinued 500 mg PO TWICE A DAY 10 August 26, 2018 12:00am November 28, 2018 2:21pm colchicine 0.6 mg oral tablet (4 sources) Start: 08-30-2021 End: 09-14-2021 take 2 tablets by mouth once daily, then take 1 tablet by mouth every hour Colchicine 0.6 mg tablet Discontinued 0.6 mg PO DAILY 3 August 30, 2021 12:00am September 14, 2021 11:02am 1.2mg x 1 then 0.6 mg 1 hour later Start: 08-30-2021 End: 09-14-2021 take 1.2 mg by mouth once daily, then take 0.6 mg by mouth every hour Colchicine Discontinued 0.6 MG PO DAILY 3 August 30, 2021 12:00am September 14, 2021 11:02am 1.2mg x 1 then 0.6 mg 1 hour later cyclobenzaprine hydrochloride 5 mg oral tablet (5 sources) Muscle Relaxant Start: 07-27-2020 End: 08-03-2020 take 1 tablet by mouth three times daily as needed for muscle spasms Cyclobenzaprine 5 mg tablet Discontinued 5 mg PO THREE TIMES A DAY as needed for muscle spasm 21 7 0 July 27, 2020 12:00am August 02, 2020 12:00am August 03, 2020 12:01am fenofibrate 54 mg oral tablet (5 sources) Peroxisome Proliferator Receptor alpha Agonist Start: 08-24-2021 End: 09-29-2024 take 1 tablet by mouth once daily Fenofibrate 54 mg tablet Discontinued 54 mg PO DAILY 60 2 August 24, 2021 12:00am September 29, 2024 3:59pm hydroCHLOROthiazide 25 mg oral tablet (20 sources) Thiazide Diuretic Start: 07-24-2018 End: 09-29-2024 take 1 tablet by mouth once daily Hydrochlorothiazide 25 mg tablet Discontinued 25 mg PO DAILY 90 0 September 16, 2021 2:33pm September 29, 2024 3:59pm TAKE 1 TABLET BY MOUTH ONCE DAILY Start: 06-19-2018 End: 07-24-2018 take 1 tablet by mouth once daily Hydrochlorothiazide 12.5 mg tablet Discontinued 12.5 mg PO DAILY 30 1 June 19, 2018 12:00am July 24, 2018 5:57pm ibuprofen 200 mg oral capsule (10 sources) Nonsteroidal Anti-inflammatory Drug Start: 04-18-2017 End: 10-08-2024 take 1 capsule by mouth once as needed for pain Ibuprofen 200 mg capsule Discontinued 200 mg PO ONCE as needed for Pain November 28, 2018 2:22pm October 08, 2024 9:48am indomethacin 50 mg oral capsule (4 sources) Nonsteroidal Anti-inflammatory Drug Start: 09-14-2021 End: 09-14-2021 take 1 capsule by mouth three times daily at mealtime Indomethacin 50 mg capsule Discontinued 50 mg PO THREE TIMES A DAY 21 7 0 September 14, 2021 12:00am September 20, 2021 12:00am September 14, 2021 11:33am administer with food or milk methylPREDNISolone 4 mg oral tablet (5 sources) Corticosteroid Start: 10-30-2017 End: 07-24-2018 take 1 tablet by mouth once Methylprednisolone (Medrol (Agustin)) 4 mg tablets,dose pack Discontinued 0 PO per package directions 21 0 October 30, 2017 12:00am July 24, 2018 5:45pm PO PER PKG DIR Problems Active Problems Problem Classification Problem Date Documented Da te Episodic/Chronic Abdominal pain (3 sources) Unspecified abdominal pain; Translations: [Abdominal pain] Onset: 10-17-2016 10-08-2024 Episodic Essential hypertension (10 sources) Hypertensive disorder; Translations: [Essential (primary) hypertension] Onset: 12-24-2021 Chronic Fluid and electrolyte disorders (1 source) Dehydration; Translations: [Dehydration] 10-08-2024 Episodic Fracture of lower limb (2 sources) Stress fracture of right tibia; Translations: [Stress fracture, right tibia, initial encounter for fracture] 12-07-2022 Episodic Gout and other crystal arthropathies (10 sources) Gout; Translations: [Gout, unspecified] Onset: 09-30-2024 Chronic Inflammation; infection of eye (except that caused by tuberculosis or sexually transmitteddisease) (5 sources) Conjunctivitis; Translations: [Unspecified conjunctivitis] 07-24-2018 Episodic Other circulatory disease (10 sources) Elevated blood-pressure reading without diagnosis of hypertension; Translations: [Elevated blood-pressure reading, without diagnosis of hypertension] 10-30-2017 Episodic Comment on above: CONTROLLED WITH MED Other connective tissue disease (6 sources) Foot pain; Translations: [Pain in right foot] 11-28-2018 Episodic Other connective tissue disease (2 sources) Pain in left foot; Translations: [Pain in left foot] Onset: 12-24-2021 Episodic Other diseases of kidney and ureters (1 source) Renal impairment; Translations: [Disorder of kidney and ureter, unspecified] 10-08-2024 Episodic Other gastrointestinal disorders (1 source) Diarrhea; Translations: [Diarrhea, unspecified] 10-08-2024 Episodic Other injuries and conditions due to external causes (5 sources) H/O: fracture; Translations: [Personal history of (healed) traumatic fracture] 11-28-2018 Episodic Other non-traumatic joint disorders (5 sources) Pain in wrist; Translations: [Pain in left wrist] 10-30-2017 Episodic Other screening for suspected conditions (not mental disorders or infectious disease) (12 sources) Patient encounter status; Translations: [Encounter for screening for malignant neoplasm of colon] Episodic Other upper respiratory infections (5 sources) Pharyngitis; Translations: [Acute pharyngitis, unspecified] 07-24-2018 Episodic Substance-related disorders (2 sources) Nicotine dependence, unspecified, uncomplicated; Translations: [Nicotine dependence, unspecified, uncomplicated] Onset: 05-11-2021 Chronic Thyroid disorders (10 sources) Thyroid nodule; Translations: [Nontoxic single thyroid nodule] Onset: 09-30-2024 Chronic Past or Other Problems Problem Classification Problem Date Documented Date Episodic/Chronic E Codes: Adverse effects of medical drugs (2 sources) Adverse effect of other viral vaccines, initial encounter; Translations: [Adverse effect of other viral vaccines, initial encounter] Onset: 05-11-2021 Episodic Malaise and fatigue (2 sources) Other fatigue; Translations: [Other fatigue] Onset: 05-11-2021 Episodic Medical examination/evaluatio n (2 sources) Encounter for gynecological examination (general) (routine) without abnormal findings; Translations: [Encounter for gynecological examination (general) (routine) without abnormal findings] Onset: 11-21-2016 Episodic Other connective tissue disease (2 sources) Myalgia, unspecified site; Translations: [Myalgia, unspecified site] Onset: 05-11-2021 Episodic Results Test Name Value Interpretation Reference Range Facility Absolute lymphocyte countOrd ered By: Brendan Patricia on 10-08-2024 Lymphocytes Auto (Unsp spec) [#/Vol] 2.31 10*3/uL 0.83-4.51 [facility] Absolute neutrophil countOrd ered By: Brendan Patricia on 10-08-2024 Neutrophils (Bld) [#/Vol] 14.0 10*3/uL High 2.0-7.7 [facility] Anion gap in Serum or Plasma Ordered By: Brendan Patricia on 10-08-2024 Anion gap [Moles/Vol] 9 mmol/L 5-15 [facility] Automated lymphocyte count a s percentage of total leukocytesOrdered By: Brendan Patricia on 10-08-2024 Lymphocytes/100 WBC Auto (Unsp spec) 12.6 % Low 19-41 [facility] BUN/creatinine ratioOrdered By: Brendan Patricia on 10-08-2024 Urea nitrogen/Creatinine [Mass ratio] 18.3 mg/mg 10-20 [facility] Basophil percentageOrdered B y: Brendan Patricia on 10-08-2024 Basophils/100 WBC (Bld) 0.6 % 0-1 [facility] Bilirubin, totalOrdered By: Brendan Patricia on 10-08-2024 Bilirubin [Mass/Vol] 0.43 mg/dL 0.00-1.30 [facility] Carbon dioxide, total [Moles /volume] in Central venous bloodOrdered By: Brendan Patricia on 10-08-2024 CO2 [Moles/Vol] 29.1 mmol/L 21.0-32.0 [facility] Chloride assayOrdered By: Afshin Patricia on 10-08-2024 Chloride [Moles/Vol] 102 mmol/L 98-108 [facility] Eosinophil percentageOrdered By: Brendan Patricia on 10-08-2024 Eosinophils/100 WBC (Bld) 1.6 % 0-5 [facility] Erythrocyte distribution wid th ratioOrdered By: Brendan Patricia on 10-08-2024 Erythrocyte distribution width (RBC) [Ratio] 13.2 % 11.6-14.6 [facility] Erythrocyte distribution wid th standard deviationOrdered By: Brendan Patricia on 10-08-2024 Erythrocyte distribution width (RBC) [Ratio] 42.8 fl 35.1-43.9 [facility] Glomerular filtration rate ( GFR) estimation/1.73 sq m using serum, plasma, or whole bOrdered By: Brendan Patricia on 10-08-2024 GFR/1.73 sq M.predicted among non-blacks MDRD (S/P/Bld) [Vol rate/Area] 45 mL/min/{1.73_m2} Low >60 [facility] Comment on above: mL/min/1.73m2 CKD-EP I Creatinine Equation (2020) Hematocrit Auto (Bld) [Volum e fraction]Ordered By: Brendan Patricia on 10-08-2024 Hematocrit (Bld) [Volume fraction] 49.9 % High 37-47 [facility] Hemoglobin measurementOrdere d By: Brendan Patricia on 10-08-2024 Hemoglobin (Bld) [Mass/Vol] 16.4 g/dL High 12.0-15.0 [facility] Immature granulocytes/100 WB C Auto (Bld)Ordered By: Brendan Patricia on 10-08-2024 Immature granulocytes/100 WBC (Bld) 2.200 % High 0.0-0.9 [facility] Comment on above: IG% - Immature Granu locytes (promyelocytes, myelocytes and metamyelocytes) > 1% indicates that a LEFT SHIFT is Present. Laboratory - Chemistry and C hemistry - challengeOrdered By: Brendan Patricia on 10-08-2024 AST [Catalytic activity/Vol] 29 U/L <32 [facility] Lipase measurementOrdered By : Brendan Patricia on 10-08-2024 Lipase [Catalytic activity/Vol] 55 U/L 13-75 [facility] Comment on above: Please note:LIPASE r evised reference range effective 22. New Lipase methodology. Expected to produce lower values than the previous assay method. NEW Reference Range: 13 - 75 U/L MCV (mean corpuscular volume ) determinationOrdered By: Brendan Patricia on 10-08-2024 MCV (RBC) [Entitic vol] 88.5 fL 81-99 [facility] Mean corpuscular hemoglobin (MCH) determinationOrdered By: Brendan Patricia on 10-08-2024 MCH (RBC) [Entitic mass] 29.1 pg 27.0-32.0 [facility] Mean corpuscular hemoglobin concentration (MCHC) determinationOrdered By: Brendan Patricia on 10-08-2024 MCHC (RBC) [Mass/Vol] 32.9 g/dL 32-36 [facility] Mean platelet volume determi nationOrdered By: Brendan Patricia on 10-08-2024 Platelet mean volume (Bld) [Entitic vol] 9.8 fL 6.2-12.0 [facility] Monocyte percentageOrdered B y: Brendan Patricia on 10-08-2024 Monocytes/100 WBC (Bld) 6.7 % 0-10 [facility] Neutrophil percentageOrdered By: Brendan Patricia on 10-08-2024 Neutrophils/100 WBC (Bld) 76.3 % High 47-70 [facility] Nucleated red blood cell per centageOrdered By: Brendan Patricia on 10-08-2024 Nucleated RBC/100 WBC (Bld) [Ratio] 0 % 0-5 [facility] Platelet countOrdered By: Afshin Patricia on 10-08-2024 Platelets (Bld) [#/Vol] 306 10*3/uL 150-450 [facility] Potassium measurement (mass/ volume)Ordered By: Brendan Patricia on 10-08-2024 Potassium (Unsp spec) [Mass/Vol] 4.1 mmol/L 3.3-5.1 [facility] RBC Auto (Bld) [#/Vol]Ordere d By: Brendan Patricia on 10-08-2024 RBC (Bld) [#/Vol] 5.64 10*6/uL High 4.2-5.4 [facility] Serum creatinine measurement (mass/volume)Ordered By: Brendan Patricia on 10-08-2024 Creatinine [Mass/Vol] 1.39 mg/dL High 0.70-1.20 [facility] Serum globulin measurementOr dered By: Brendan Patricia on 10-08-2024 Globulin (S) [Mass/Vol] 2.5 g/dL 2.2-4.2 [facility] Serum glucose measurement (m ass/volume)Ordered By: Brendan Patricia on 10-08-2024 Glucose [Mass/Vol] 89 mg/dL 70-99 [facility] Serum or plasma alanine collins otransferase (ALT) measurementOrdered By: Brendan Patricia on 10-08-2024 ALT [Catalytic activity/Vol] 45 U/L High <35 [facility] Serum or plasma albumin shelly urement (mass/volume)Ordered By: Brendan aPtricia on 10-08-2024 Albumin [Mass/Vol] 4.0 g/dL 3.5-5.0 [facility] Serum or plasma albumin/glob ulin mass ratioOrdered By: Brendan Patricia on 10-08-2024 Albumin/Globulin [Mass ratio] 1.6 {ratio} 0.9-2.4 [facility] Serum or plasma alkaline rizwana sphatase measurementOrdered By: Brendan Patricia on 10-08-2024 ALP [Catalytic activity/Vol] 83 U/L 35-104 [facility] Serum or plasma calcium shelly urement (mass/volume)Ordered By: Brendan Patricia on 10-08-2024 Calcium [Mass/Vol] 9.1 mg/dL 7.6-11.0 [facility] Serum or plasma urea nitroge n measurement (mass/volume)Ordered By: Brendan Patricia on 10-08-2024 Urea nitrogen [Mass/Vol] 26 mg/dL High 4-19 [facility] Sodium levelOrdered By: Brendan Patricia on 10-08-2024 Sodium [Moles/Vol] 140 mmol/L 133-145 [facility] Total proteinOrdered By: Harshil Patricia on 10-08-2024 Protein [Mass/Vol] 6.6 g/dL 5.9-8.4 [facility] White blood cell (WBC) count Ordered By: Brendan Patricia on 10-08-2024 WBC (Bld) [#/Vol] 18.3 10*3/uL High 4.4-11.0 [facility] Anion gap in Serum or Plasma Ordered By: Giuliana Haywood on 10-06-2024 Anion gap [Moles/Vol] 12 mmol/L 5-15 [facility] BUN/creatinine ratioOrdered By: Giuliana Haywood on 10-06-2024 Urea nitrogen/Creatinine [Mass ratio] 21.6 mg/mg High 10-20 [facility] Carbon dioxide, total [Moles /volume] in Central venous bloodOrdered By: iGuliana Haywood on 10-06-2024 CO2 [Moles/Vol] 25.3 mmol/L 21.0-32.0 [facility] Chloride assayOrdered By: Wil Haywood on 10-06-2024 Chloride [Moles/Vol] 102 mmol/L 98-108 [facility] Erythrocyte distribution wid th ratioOrdered By: Giuliana Haywood on 10-06-2024 Erythrocyte distribution width (RBC) [Ratio] 13.1 % 11.6-14.6 [facility] Erythrocyte distribution wid th standard deviationOrdered By: Giuliana Haywood on 10-06-2024 Erythrocyte distribution width (RBC) [Ratio] 41.4 fl 35.1-43.9 [facility] Free B0Hxvpdgd By: Giuliana cesar on 10-06-2024 Free T3 [Mass/Vol] 2.3 pg/mL 2.18-3.98 [facility] Glomerular filtration rate ( GFR) estimation/1.73 sq m using serum, plasma, or whole bOrdered By: Giuliana Haywood on 10-06-2024 GFR/1.73 sq M.predicted among non-blacks MDRD (S/P/Bld) [Vol rate/Area] 43 mL/min/{1.73_m2} Low >60 [facility] Comment on above: mL/min/1.73m2 CKD-EP I Creatinine Equation (2020) Hematocrit Auto (Bld) [Volum e fraction]Ordered By: Giuliana Haywood on 10-06-2024 Hematocrit (Bld) [Volume fraction] 48.0 % High 37-47 [facility] Hemoglobin measurementOrdere d By: Giuliana Haywood on 10-06-2024 Hemoglobin (Bld) [Mass/Vol] 15.9 g/dL High 12.0-15.0 [facility] MCV (mean corpuscular volume ) determinationOrdered By: Giuliana Haywood on 10-06-2024 MCV (RBC) [Entitic vol] 88.2 fL 81-99 [facility] Mean corpuscular hemoglobin (MCH) determinationOrdered By: Giulianalawanda Haywood on 10-06-2024 MCH (RBC) [Entitic mass] 29.2 pg 27.0-32.0 [facility] Mean corpuscular hemoglobin concentration (MCHC) determinationOrdered By: Giuliana Haywood on 10-06-2024 MCHC (RBC) [Mass/Vol] 33.1 g/dL 32-36 [facility] Mean platelet volume determi nationOrdered By: Giuliana Haywood on 10-06-2024 Platelet mean volume (Bld) [Entitic vol] 10.0 fL 6.2-12.0 [facility] Platelet countOrdered By: Wil Haywood on 10-06-2024 Platelets (Bld) [#/Vol] 333 10*3/uL 150-450 [facility] Potassium measurement (mass/ volume)Ordered By: Giuliana Haywood on 10-06-2024 Potassium (Unsp spec) [Mass/Vol] 4.0 mmol/L 3.3-5.1 [facility] Comment on above: Hemolysis present, R esults could be affected. RBC Auto (Bld) [#/Vol]Ordere d By: Giuliana Haywood on 10-06-2024 RBC (Bld) [#/Vol] 5.44 10*6/uL High 4.2-5.4 [facility] Serum creatinine measurement (mass/volume)Ordered By: Giuliana Haywood on 10-06-2024 Creatinine [Mass/Vol] 1.43 mg/dL High 0.70-1.20 [facility] Serum glucose measurement (m ass/volume)Ordered By: Giuliana Haywood on 10-06-2024 Glucose [Mass/Vol] 139 mg/dL High 70-99 [facility] Serum or plasma C reactive p rotein measurement (mass/volume)Ordered By: Giuliana Haywood on 10-06-2024 CRP [Mass/Vol] mg/L 0.0-3.0 [facility] Serum or plasma calcium shelly urement (mass/volume)Ordered By: Giuliana Haywood on 10-06-2024 Calcium [Mass/Vol] 9.4 mg/dL 7.6-11.0 [facility] Serum or plasma urea nitroge n measurement (mass/volume)Ordered By: Giuliana Hyawood on 10-06-2024 Urea nitrogen [Mass/Vol] 31 mg/dL High 4-19 [facility] Serum or plasma uric acid me asurement (mass/volume)Ordered By: Giuliana Haywood on 10-06-2024 Urate [Mass/Vol] 9.8 mg/dL High 2.6-6.0 [facility] Comment on above: The drugs N-Acetylcy steine and Metamizole may falsely depress this assay. Sodium levelOrdered By: Janette Haywood on 10-06-2024 Sodium [Moles/Vol] 139 mmol/L 133-145 [facility] T4 freeOrdered By: Giuliana cesar on 10-06-2024 Free T4 [Mass/Vol] 1.30 ng/dL 0.76-1.46 [facility] TSH DL <= 0.005 mIU/L QnOrde red By: Giuliana Mcguirenohemy on 10-06-2024 TSH Qn 3.080 uIU/mL 0.300-4.200 [facility] White blood cell (WBC) count Ordered By: Giuliana Bethcristiane on 10-06-2024 WBC (Bld) [#/Vol] 17.3 10*3/uL High 4.4-11.0 [facility] Internal Medicine Office Vis iton 09-29-2024 Internal Medicine Office Visit [facility] [address] [place] [address] [place] [address] OFFICE VISIT Date of Service: 09/29/24 MR#: [id number] Acct: [id number] Name: ARABELLA MO Rep #: [id number] : 1970 Provider: SHERMAN del valle Age/Sex: 54/F [place] [facility] Status: Signed Intake Vital Signs 09/14/21 11:00 09/29/24 15:57 Height 5 ft 5 in 5 ft 5 in Weight: 187 lb 4 oz BMI 31.1 BP 132/78 H Blood Pressure Location Rt brachial Position Sitting Respiration 16 Pulse 101 H Pulse Source Monitor Temp 97.4 F L Temp Source Temporal Pulse Oximetry (%) 98 Oxygen Delivery Method room air Intake Visit Reasons: ACUTE JOINT PAIN Chief Complaint: joint pain Safety Professional Required: No Accompanied by: Self Is patient in pain?: Yes (joint pain and a 10 when waking up ) Pain scale (1-10): 9 Allergies No Known Allergies Allergy (Verified 09/29/24 15:51) Medications ???Medication ???Instructions ???Recorded ???Confirmed ???Type ibuprofen 200 mg capsule 200 mg PO ONCE PRN Pain 11/28/18 0 09/29/24 History miscellaneous medical supply #1 ea 09/14/21 09/29/24 Rx (Blood Pressure Cuff) prednisone 10 mg tablet 10 mg PO DIRECTED #48 tabs 10/1709/29/24 Rx Nurse's Note: Joint pain hands and feet and wrist hurts constantly difficulty walking in the morning and after working all day [facility] Medical History Breast cancer screening Thyroid nodule Gout Wears partial dentures Smoker History of edema Hay fever Elevated BP without diagnosis of hypertension History of lower leg fracture Surgical History Hx of cholecystectomy Family History Mother Diabetes Hypertension Father Cancer Social History Smoking Status: Current every day smoker tobacco type: cigarettes alcohol intake: never substance use type: does not use what type of physical activity do you participate in: walking frequency: daily HPI HPI Chief Complaint: joint pain Details: ARABELLA MO, is a 54 F who presents to the office today for increasing joint pain. Notes worse in feet hands and wrists. At times pain is a 9 out of scale of 1-10. Also complains of pain in the right knee and right ankle states she did have an MRI on the ankle for continued pain greater than 1 year and was not found to have any concern that needed interventions per podiatry. States pain is worse upon waking up and after work. Patient does have a history of hyperuricemia and was previously on allopurinol. However patient quit taking medications over 2 years ago. Patient has been using [id number] ibuprofen for pain control. States continued pain and worsening of symptoms. ROS Const Constitutional: No body ache, excessive sweating, fatigue, fever(s), frequent falls, headache(s), snoring, weakness, weight change, sleep problems or change in appetite Eyes Eyes: No blurry vision, change in vision, eye pain or Light sensitivity ENT ENT: No abnormal hearing, ear or mastoid pain, tinnitus, nasal congestion, headache(s), neck pain or sore throat Resp Respiratory: No cough, shortness of breath, snoring or wheezing Cardio Cardiology: No chest pain at rest, chest pain with exertion, excessive sweating, shortness of breath, dyspnea on exertion, lightheadedness, orthopnea or palpitations Gastro GI: No abdominal pain, change in bowel habits, constipation, cramping, diarrhea, nausea/dyspepsia or vomiting Genitourinary-Femal e: No burning urination, painful urination, urinary incontinence, urinary frequency, blood in urine, abnormal periods or pelvic pain Musc Musculoskeletal: No abnormal gait, joint pain, back pain, limited range of motion, neck pain, numbness, stiffness, tingling or Arthritis Skin Skin: No dry skin, redness, lesions, itchy eyes, rash or wounds Neuro Neurology: No abnormal gait, abnormal hearing, abnormal speech, dizziness, weakness, frequent falls, headache(s), memory loss, numbness or tingling Psych Psychiatric: No anxiety, No change in appetite, No depression, No memory loss and No Thoughts of harming yourself/Others Endo Endocrine: No cold intolerance, excessive sweating, fatigue, flushing, heat intolerance, increased thirst/drinking, increased hunger or weight change Aller/Imm Allergy/Immunologic : No itchy eyes, seasonal allergy symptoms, hives or wheezing Nile/Lymp Hematologic/Lymphat ic: No easy bleeding, easy bruising or enlarged lymph nodes Exam Const General: cooperative, no acute distress and well developed Nutritional Appearance: well nourished Orientation: alert and oriented x3 HENMT Head: normal to inspection and normoce (more content not included)... Normal [facility] MR Ankle - right WO contrast on 12-11-2022 Impression: Findings suggestive of posterior ankle impingement including a prominent posterior-lateral process of the talus, with a small amount of surrounding soft tissue fluid and edema, and thickening and edema of the posterior talofibular ligament. Report Dictated on Electronically Signed By: Dav Goel MD Electronically Signed Date/Time: 12/11/2022 8:17 AM [facility] Patient Name: ARABELLA MO : 1970 [facility]#: [id number] Exam Date/Time: 12/07/2022 13:43 Procedure: MR ANKLE RIGHT WO CONTRAST Ordering Provider: TORRE MICHAEL Reason For Exam: Examination: MRI right ankle Clinical Indication: Pain Comparison: None Findings: Multiplanar multisequence MRI images were obtained through the right ankle without administration of intravenous gadolinium. Prominent posterior-lateral process of the talus, with a small amount of surrounding soft tissue fluid and edema. The posterior talofibular ligament is thickened and edematous. No evidence of fracture, contusion or avascular necrosis. No osteochondral lesion. Large plantar calcaneal enthesophyte. However the plantar fascia is unremarkable. Lateral ankle: The anterior and posterior talofibular and calcaneofibular ligaments are intact. The tibiofibular ligaments are preserved. The anterior and posterior syndesmosis are intact. The peroneal brevis and longus tendons are normal. No subcutaneous edema at the lateral malleolus. The sinus tarsi fat is preserved. Medial structures: The deep fibers of the deltoid ligament are intact. Mild tibialis posterior tendinopathy at the level of the malleolus (images 14-18 of the axial series). Otherwise the tendon is intact. The flexor digitorum longus and flexor hallucis longus tendons are normal/unremarkable . No subcutaneous edema at the medial malleolus. Anterior structures: The extensor tendons are within normal limits. Posterior structures: The Achilles tendon is normal. Tiny amount of fluid and edema within the superiormost aspect of Kaeger's fat pad. Normal muscle volume and signal intensity. No evidence of joint effusion. [facility] Dav Goel MD - 12/11/2022 Patient Name: ARABELLA MO : 1970 Exam Date/Time: 12/07/2022 13:43 Procedure: MR ANKLE RIGHT WO CONTRAST Ordering Provider: TORRE MICHAEL Reason For Exam: Examination: MRI right ankle Clinical Indication: Pain Comparison: None Findings: Multiplanar multisequence MRI images were obtained through the right ankle without administration of intravenous gadolinium. Prominent posterior-lateral process of the talus, with a small amount of surrounding soft tissue fluid and edema. The posterior talofibular ligament is thickened and edematous. No evidence of fracture, contusion or avascular necrosis. No osteochondral lesion. Large plantar calcaneal enthesophyte. However the plantar fascia is unremarkable. Lateral ankle: The anterior and posterior talofibular and calcaneofibular ligaments are intact. The tibiofibular ligaments are preserved. The anterior and posterior syndesmosis are intact. The peroneal brevis and longus tendons are normal. No subcutaneous edema at the lateral malleolus. The sinus tarsi fat is preserved. Medial structures: The deep fibers of the deltoid ligament are intact. Mild tibialis posterior tendinopathy at the level of the malleolus (images 14-18 of the axial series). Otherwise the tendon is intact. The flexor digitorum longus and flexor hallucis longus tendons are normal/unremarkable . No subcutaneous edema at the medial malleolus. Anterior structures: The extensor tendons are within normal limits. Posterior structures: The Achilles tendon is normal. Tiny amount of fluid and edema within the superiormost aspect of Kaeger's fat pad. Normal muscle volume and signal intensity. No evidence of joint effusion. IMPRESSION: Impression: Findings suggestive of posterior ankle impingement including a prominent posterior-lateral process of the talus, with a small amount of surrounding soft tissue fluid and edema, and thickening and edema of the posterior talofibular ligament. Report Dictated on Electronically Signed By: Dav Goel MD Electronically Signed Date/Time: 12/11/2022 8:[address] [facility] MR Ankle - right WO contrast Ordered By: Dav Goel on 12-11-2022 [facility] Work Phone: MR Ankle - right WO contrast on 12-07-2022 Radiology Study observation (narrative) [facility] Basophil percentageOrdered B y: Dr. Harris on 07-14-2022 Chloride [Moles/Vol] 109 mmol/L 98-107 [facility] Glucose [Mass/Vol] 81 mg/dL 74-106 [facility] Potassium [Moles/Vol] 3.7 mmol/L 3.5-5.1 [facility] Sodium [Moles/Vol] 138 mmol/L 136-145 [facility] WBC (Bld) [#/Vol] 8.8 10*3/uL 4.4-11.0 [facility] Blood erythrocytes count (nu mber/volume)Ordered By: Dr. Harris on 07-14-2022 RBC (Bld) [#/Vol] 5.20 10*6/uL 4.2-5.4 [facility] Blood hemoglobin measurement (mass/volume)Ordered By: Dr. Harris on 07-14-2022 Hemoglobin (Bld) [Mass/Vol] 15.6 g/dL 12.0-15.0 [facility] Blood platelet mean volumeOr dered By: Dr. Harris on 07-14-2022 Platelet mean volume (Bld) [Entitic vol] 9.8 fL 6.2-12.0 [facility] Determination of erythrocyte mean corpuscular volume (MCV)Ordered By: Dr. Harris on 07-14-2022 MCV (RBC) [Entitic vol] 91.0 fL 81-99 [facility] Hematocrit Auto (Bld) [Volum e fraction]Ordered By: Dr. Harris on 07-14-2022 Hematocrit (Bld) [Volume fraction] 47.3 % 37-47 [facility] Laboratory - Chemistry and C hemistry - challengeOrdered By: Dr. Harris on 07-14-2022 CO2 [Moles/Vol] 31.0 mmol/L 21.0-32.0 [facility] Urea nitrogen/Creatinine [Mass ratio] 13.4 mg/mg 10-20 [facility] Laboratory - Hematology and Cell countsOrdered By: Dr. Harris on 07-14-2022 Erythrocyte distribution width (RBC) [Entitic vol] 40.5 fL 35.1-43.9 [facility] Erythrocyte distribution width (RBC) [Ratio] 12.3 % 11.6-14.6 [facility] MCH (RBC) [Entitic mass] 30.0 pg 27.0-32.0 [facility] MCHC Auto (RBC) [Mass/Vol]Or dered By: Dr. Harris on 07-14-2022 MCHC (RBC) [Mass/Vol] 33.0 g/dL 32-36 [facility] No Panel InformationOrdered By: Dr. Harris on 07-14-2022 Estimated GFR (MDRD) Amer 65 mL/min >60 [facility] Comment on above: GFR Calc Estimated GFR (MDRD) Non-Af Amer 54 mL/min >60 [facility] Comment on above: Non- GFR Calc Platelets bldOrdered By: Dr. Harris on 07-14-2022 Platelets (Bld) [#/Vol] 296 10*3/uL 150-450 [facility] Serum or plasma calcium shelly urement (mass/volume)Ordered By: Dr. Harris on 07-14-2022 Calcium [Mass/Vol] 9.3 mg/dL 8.5-10.1 [facility] Serum or plasma creatinine m easurement (mass/volume)Ordered By: Dr. Harris on 07-14-2022 Creatinine [Mass/Vol] 1.12 mg/dL 0.55-1.02 [facility] Comment on above: The validity of the calculated GFR & GFRAA in patients over 70 years has not been determined. Clinical correlation is essential. Serum or plasma urea nitroge n measurement (mass/volume)Ordered By: Dr. Harris on 07-14-2022 Urea nitrogen [Mass/Vol] 15 mg/dL 7-18 [facility] Thin prep Papanicolaou smear with manual screeningOrdered By: Dr. Harris on 07-14-2022 Thin prep Papanicolaou smear with manual screening -2 5-15 [facility] CR Foot Complete 3+ Views Le fton 12-24-2021 CR Foot Complete 3+ Views Left Patient Name: ARABELLA MO Diagnostic Radiology ACCESSION EXAM DATE/TIME PROCEDURE ORDERING PROVIDER [id number] 12/24/2021 05:49 EDT CR Foot Complete 3+ UNASSIGNED, UNASSIGNED Views Left CPT code 47684 Reason For Exam (CR Foot Complete 3+ Views Left) left foot pain Report LEFT FOOT: CLINICAL INDICATION: Pain. TECHNIQUE: AP, Lat, Oblique COMPARISON: None. FINDINGS: There is no evidence for fracture or dislocation. No bone lesion is identified. There is no soft tissue abnormality. Small plantar calcaneal spur. IMPRESSION: No fracture or dislocation. Report Dictated on Final Dictating Physician: MD WEBB KEVIN Signed Date and Time: 12/24/2021 5:55 am Signed by: MD WEBB KEVIN Transcribed Date and Time: 12/24/2021 5:56 Normal [facility] ED Provider Noteon ED Provider Note [facility] ED EMERGENCY DEPARTMENT ENCOUNTER Pt Name: Arabella Mo Birthdate 1970 Date of evaluation: 12/24/2021 Provider: Anibal Ramirez DO CHIEF COMPLAINT Chief Complaint Patient presents with Foot Pain Pt c/o left foot pain. States that it began after work at 6pm. Denies any injury or trauma. Pt ambulatory in triage. No swelling noted. HISTORY OF PRESENT ILLNESS (Location/Symptom, Timing/Onset, Context/Setting, Quality, Duration, Modifying Factors, Severity) Note limiting factors. I wore a kn95 mask for the entirety of this encounter. HPI Arabella Mo is a 51 y.o. female who presents to the emergency department with left foot pain. The patient reports that her symptoms started few hours ago and woke her from sleep. Pain is located on the dorsal aspect of the left foot, described as achy, and moderate in intensity. The patient has not tried anything for symptoms. She denies any trauma. She denies any numbness or weakness. Denies other review of systems as below. Nursing Notes were reviewed. REVIEW OF SYSTEMS (2+ for level 4; 10+ for level 5) Review of Systems Constitutional: Negative for fever. HENT: Negative for sore throat. Respiratory: Negative for shortness of breath. Cardiovascular: Negative for chest pain. Gastrointestinal: Negative for abdominal pain. Genitourinary: Negative for dysuria. Musculoskeletal: Negative for back pain. Positive for left foot pain Skin: Negative for rash. Neurological: Negative for headaches. Psychiatric/Behavio ral: Negative for confusion. PAST MEDICAL HISTORY Past Medical History: Diagnosis Date Hypertension SURGICAL HISTORY No past surgical history on file. CURRENT MEDICATIONS Previous Medications No medications on file ALLERGIES Patient has no known allergies. FAMILY HISTORY No family history on file. SOCIAL HISTORY Social History Socioeconomic History Marital status: Single Tobacco Use Smoking status: Every Day Smokeless tobacco: Never Substance and Sexual Activity Alcohol use: Not Currently SCREENINGS Gary Coma Scale Eye Opening: Spontaneous Best Verbal Response: Oriented Best Motor Response: Obeys commands [place] Coma Scale Score: 15 PHYSICAL EXAM (up to 7 for level 4, 8 or more for level 5) ED Triage Vitals BP Temp Temp Source Heart Rate Resp SpO2 Height Weight 12/24/21 0324 12/24/21 0324 12/24/21 0324 12/24/21 0324 12/24/21 0324 12/24/21 0324 12/24/21 0324 12/24/21 0324 (!) 149/100 97.5 ?F (36.4 ?C) Temporal 83 19 99 % 5' 5 (1.651 m) 170 lb (77.1 kg) Physical Exam Constitutional: General: She is not in acute distress. HENT: Head: Normocephalic. Eyes: Pupils: Pupils are equal, round, and reactive to light. Cardiovascular: Rate and Rhythm: Normal rate and regular rhythm. Pulmonary: Effort: Pulmonary effort is normal. Abdominal: General: Abdomen is flat. Palpations: Abdomen is soft. Musculoskeletal: General: No deformity. Comments: Tenderness present of the dorsum of the left foot Left foot is neurovascularly intact. Skin: General: Skin is warm and dry. Comments: No color change or swelling to left foot. Neurological: Mental Status: She is alert. DIAGNOSTIC RESULTS Interpretation per the Radiologist below, if available at the time of this note: XR FOOT LEFT (MIN 3 VIEWS) Result Date: 12/24/2021 Patient Name: ARABELLA MO Diagnostic Radiology ACCESSION EXAM DATE/TIME PROCEDURE ORDERING PROVIDER [id number] 12/24/2021 05:49 EDT CR Foot Complete 3+ UNASSIGNED, UNASSIGNED Views Left CPT code 84443 Reason For Exam (CR Foot Complete 3+ Views Left) left foot pain Report LEFT FOOT: CLINICAL INDICATION: Pain. TECHNIQUE: AP, Lat, Oblique COMPARISON: None. FINDINGS: There is no evidence for fracture or dislocation. No bone lesion is identified. There is no soft tissue abnormality. Small plantar calcaneal spur. IMPRESSION: No fracture or dislocation. Report Dictated on --- Final --- Dictating Physician: MD WEBB KEVIN Signed Date and Time: 12/24/2021 5:55 am Signed by: MD WEBB KEVIN Transcribed Date and Time: 12/24/2021 5:56 ED BEDSIDE ULTRASOUND: Performed by ED Physician - none LABS: Labs Reviewed - No data to display All other labs were within normal range or not returned as of this dictation. EMERGENCY DEPARTMENT COURSE and DIFFERENTIAL DIAGNOSIS/MDM: Vitals: Vitals: 12/24/21 0324 12/24/21323 BP: (!) 149/100 Pulse: 83 Resp: 19 18 Temp: 97.5 ?F (36.4 ?C) TempSrc: Temporal SpO2: 99% Weight: 77.1 kg (170 lb) Height: 5' 5 (1.651 m) Medications - No data to display MDM . I, Dr. Ramirez, am the hedis abstractor of record. I personally saw the patient and performed a substantive portion of the visit including all aspects of the medical decision making. Patient is a 51 y.o. female presenting to the emergency department wit (more content not included)... Normal [facility] Basophil percentageon 2021 Chloride [Moles/Vol] 106 mmol/L 98-107 [facility] Work Phone: Cholesterol [Mass/Vol] 211 mg/dL <200 [facility] Work Phone: Comment on above: <200 mg/dL Desirable 200-240 mg/dL Borderline >240 mg/dL High Risk Glucose [Mass/Vol] 80 mg/dL 74-106 [facility] Work Phone: Potassium [Moles/Vol] 4.0 mmol/L 3.5-5.1 [facility] Work Phone: Sodium [Moles/Vol] 140 mmol/L 136-145 [facility] Work Phone: Triglyceride [Mass/Vol] 360 mg/dL <199 [facility] Work Phone: Comment on above: The drugs N-Acetylcy steine and Metamizole may falsely depress this assay.Serum Triglycerides Reference Interval Normal <150 mg/dL Borderline high 150 - 199 mg/dL High 200 - 499 mg/dL Very High > or = 500 mg/dL Laboratory - Chemistry and C hemistry - challengeon 09-14-2021 CO2 [Moles/Vol] 31.0 mmol/L 21.0-32.0 [facility] Work Phone: Free T4 [Mass/Vol] 0.95 ng/dL 0.76-1.46 [facility] Work Phone: Urea nitrogen/Creatinine [Mass ratio] 18.2 mg/mg 10-20 [facility] Work Phone: No Panel Informationon 09-14 Estimated GFR (MDRD) Amer 60 mL/min >60 [facility] Work Phone: Comment on above: GFR Calc Estimated GFR (MDRD) Non-Af Amer 49 mL/min >60 [facility] Work Phone: Comment on above: Non- GFR Calc Free Triiodothyronine (T3) pg/dL 2.8 pg/mL 2.18-3.98 [facility] Work Phone: Thyroid Stimulating Hormone (TSH) 1.96 uIU/mL 0.358-3.74 [facility] Work Phone: Serum or plasma calcium shelly urement (mass/volume)on 09-14-2021 Calcium [Mass/Vol] 9.4 mg/dL 8.5-10.1 [facility] Work Phone: Serum or plasma cholesterol in HDL measurement (mass/volume)on 09-14-2021 Cholesterol in HDL [Mass/Vol] 36 mg/dL >40 [facility] Work Phone: Comment on above: The drugs N-Acetylcy steine and Metamizole may falsely depress this assay. Reference Range HDL <40 mg/dL Low HDL Cholesterol HDL >or= 60 mg/dL High HDL Cholesterol Serum or plasma cholesterol in VLDL measurement (mass/volume)on 09-14-2021 Cholesterol in VLDL [Mass/Vol] 72 mg/dL 5-40 [facility] Work Phone: Serum or plasma creatinine m easurement (mass/volume)on 09-14-2021 Creatinine [Mass/Vol] 1.21 mg/dL 0.55-1.02 [facility] Work Phone: Comment on above: The validity of the calculated GFR & GFRAA in patients over 70 years has not been determined. Clinical correlation is essential. Serum or plasma low density lipoprotein (LDL) cholesterol measurement (mass/volume)on 09-14-2021 Cholesterol in LDL [Mass/Vol] 103 mg/dL 0-130 [facility] Work Phone: Serum or plasma urea nitroge n measurement (mass/volume)on 09-14-2021 Urea nitrogen [Mass/Vol] 22 mg/dL 7-18 [facility] Work Phone: Serum or plasma uric acid me asurement (mass/volume)on 09-14-2021 Urate [Mass/Vol] 4.9 mg/dL 2.6-6.0 [facility] Work Phone: Comment on above: The drugs N-Acetylcy steine and Metamizole may falsely depress this assay. Thin prep Papanicolaou smear with manual screeningon 09-14-2021 Thin prep Papanicolaou smear with manual screening 3 5-15 [facility] Work Phone: Absolute lymphocyte counton 08-24-2021 Lymphocytes Auto (Unsp spec) [#/Vol] 2.06 10*3/uL 0.83-4.51 [facility] Work Phone: Basophil percentageon 2021 Basophils/100 WBC (Bld) 0.8 % 0-1 [facility] Work Phone: Bilirubin [Mass/Vol] 0.40 mg/dL 0.20-1.00 [facility] Work Phone: Comment on above: For patients on eltr ombopag therapy, use of Dimension Elfrida TBIL is not recommended. Chloride [Moles/Vol] 103 mmol/L 98-107 [facility] Work Phone: Cholesterol [Mass/Vol] 237 mg/dL <200 [facility] Work Phone: Comment on above: <200 mg/dL Desirable 200-240 mg/dL Borderline >240 mg/dL High Risk Eosinophils/100 WBC (Bld) 4.3 % 0-5 [facility] Work Phone: Glucose [Mass/Vol] 100 mg/dL 74-106 [facility] Work Phone: Comment on above: Fasting Glucose resu lt from 100 to 125 mg/dL suggests IMPAIRED HOMEOSTASIS per A.D.A. criteria. Neutrophils (Bld) [#/Vol] 6.1 10*3/uL 2.0-7.7 [facility] Work Phone: Neutrophils/100 WBC (Bld) 64.8 % 47-70 [facility] Work Phone: Potassium [Moles/Vol] 3.3 mmol/L 3.5-5.1 [facility] Work Phone: Protein [Mass/Vol] 7.4 g/dL 6.4-8.2 [facility] Work Phone: Sodium [Moles/Vol] 140 mmol/L 136-145 [facility] Work Phone: Triglyceride [Mass/Vol] 364 mg/dL <199 [facility] Work Phone: Comment on above: The drugs N-Acetylcy steine and Metamizole may falsely depress this assay.Serum Triglycerides Reference Interval Normal <150 mg/dL Borderline high 150 - 199 mg/dL High 200 - 499 mg/dL Very High > or = 500 mg/dL WBC (Bld) [#/Vol] 9.3 10*3/uL 4.4-11.0 [facility] Work Phone: Blood erythrocytes count (nu mber/volume)on 08-24-2021 RBC (Bld) [#/Vol] 5.11 10*6/uL 4.2-5.4 [facility] Work Phone: Blood hemoglobin measurement (mass/volume)on 08-24-2021 Hemoglobin (Bld) [Mass/Vol] 15.4 g/dL 12.0-15.0 [facility] Work Phone: Blood lymphocytes/100 leukoc yteson 08-24-2021 Lymphocytes/100 WBC (Bld) 22.1 % 19-41 [facility] Work Phone: Blood monocytes/100 leukocyt eson 08-24-2021 Monocytes/100 WBC (Bld) 7.6 % 0-10 [facility] Work Phone: Blood platelet mean volumeon 08-24-2021 Platelet mean volume (Bld) [Entitic vol] 10.7 fL 6.2-12.0 [facility] Work Phone: Determination of erythrocyte mean corpuscular volume (MCV)on 08-24-2021 MCV (RBC) [Entitic vol] 91.4 fL 81-99 [facility] Work Phone: Hematocrit Auto (Bld) [Volum e fraction]on 08-24-2021 Hematocrit (Bld) [Volume fraction] 46.7 % 37-47 [facility] Work Phone: Laboratory - Chemistry and C hemistry - challengeon 08-24-2021 ALP [Catalytic activity/Vol] 74 U/L 45-117 [facility] Work Phone: ALT [Catalytic activity/Vol] 31 U/L 13-56 [facility] Work Phone: CO2 [Moles/Vol] 28.0 mmol/L 21.0-32.0 [facility] Work Phone: Globulin (S) [Mass/Vol] 3.5 g/dL 2.2-4.2 [facility] Work Phone: Urea nitrogen/Creatinine [Mass ratio] 18.8 mg/mg 10-20 [facility] Work Phone: Laboratory - Hematology and Cell countson 08-24-2021 Erythrocyte distribution width (RBC) [Entitic vol] 41.1 fL 35.1-43.9 [facility] Work Phone: Erythrocyte distribution width (RBC) [Ratio] 12.5 % 11.6-14.6 [facility] Work Phone: Immature granulocytes/100 WBC (Bld) 0.400 % 0.0-0.9 [facility] [facility] Work Phone: Comment on above: IG% - Immature Granu locytes (promyelocytes, myelocytes and metamyelocytes) > 1% indicates that a LEFT SHIFT is Present. MCH (RBC) [Entitic mass] 30.1 pg 27.0-32.0 [facility] Work Phone: Nucleated RBC/100 WBC (Bld) [Ratio] 0 % 0-5 [facility] Work Phone: MCHC Auto (RBC) [Mass/Vol]on 08-24-2021 MCHC (RBC) [Mass/Vol] 33.0 g/dL 32-36 [facility] Work Phone: No Panel Informationon 08-24 Estimated GFR (MDRD) Amer 54 mL/min >60 [facility] Work Phone: Comment on above: GFR Calc Estimated GFR (MDRD) Non-Af Amer 44 mL/min >60 [facility] Work Phone: Comment on above: Non- GFR Calc Platelets bldon 08-24-2021 Platelets (Bld) [#/Vol] 285 10*3/uL 150-450 [facility] Work Phone: Serum or plasma albumin shelly urement (mass/volume)on 08-24-2021 Albumin [Mass/Vol] 3.9 g/dL 3.2-5.0 [facility] Work Phone: Serum or plasma albumin/glob ulin mass ratioon 08-24-2021 Albumin/Globulin [Mass ratio] 1.1 {ratio} 0.9-2.4 [facility] Work Phone: Serum or plasma calcium shelly urement (mass/volume)on 08-24-2021 Calcium [Mass/Vol] 9.5 mg/dL 8.5-10.1 [facility] Work Phone: Serum or plasma cholesterol in HDL measurement (mass/volume)on 08-24-2021 Cholesterol in HDL [Mass/Vol] 38 mg/dL >40 [facility] Work Phone: Comment on above: The drugs N-Acetylcy steine and Metamizole may falsely depress this assay. Reference Range HDL <40 mg/dL Low HDL Cholesterol HDL >or= 60 mg/dL High HDL Cholesterol Serum or plasma cholesterol in VLDL measurement (mass/volume)on 08-24-2021 Cholesterol in VLDL [Mass/Vol] 73 mg/dL 5-40 [facility] Work Phone: Serum or plasma creatinine m easurement (mass/volume)on 08-24-2021 Creatinine [Mass/Vol] 1.33 mg/dL 0.55-1.02 [facility] Work Phone: Comment on above: The validity of the calculated GFR & GFRAA in patients over 70 years has not been determined. Clinical correlation is essential. Serum or plasma low density lipoprotein (LDL) cholesterol measurement (mass/volume)on 08-24-2021 Cholesterol in LDL [Mass/Vol] 126 mg/dL 0-130 [facility] Work Phone: Serum or plasma urea nitroge n measurement (mass/volume)on 08-24-2021 Urea nitrogen [Mass/Vol] 25 mg/dL 7-18 [facility] Work Phone: Serum or plasma uric acid me asurement (mass/volume)on 08-24-2021 Urate [Mass/Vol] 9.0 mg/dL 2.6-6.0 [facility] Work Phone: Comment on above: The drugs N-Acetylcy steine and Metamizole may falsely depress this assay. Thin prep Papanicolaou smear with manual screeningon 08-24-2021 Thin prep Papanicolaou smear with manual screening 19 U/L 15-37 [facility] Work Phone: Thin prep Papanicolaou smear with manual screening 9 5-15 [facility] Work Phone: HPVon 12-05-2016 HPV Interp Abnormal [facility] ([place]) Comment on above: Order Comment: Order placed by AP_HPV_ORDER rule from [id number] Performed By: #### H PV ####[place] [address] HPV Source Cervix Normal [facility] ([place]) Comment on above: Order Comment: Order placed by AP_HPV_ORDER rule from [id number] Performed By: #### H PV ####[place] [address] CTPCRon 11-24-2016 C. trachomatis Interp C. trachomatis DNA not detected. Specimen is presumptive negative for C. trachomatis. A negative result does not preclude C. trachomatis infection because results depend on adequate specimen collection, absence of inhibitors, and sufficient DNA to be detected. [facility] ([place]) Comment on above: Performed By: #### C TPCR, NGPCR1 ####[address] [address] C.trachomatis PCR Negative [facility] ([place]) Comment on above: Result Comment: Tang sport tube received with two swabs. Review collection procedure. Inappropriate collection may cause aberrant results.Molecular (PCR) assay performed on the [employer] Te[employer] 4800 system. Performed By: #### C TPCR, NGPCR1 ####[address] [address] Chlam Source Cervix Normal [facility] ([place]) Comment on above: Performed By: #### C TPCR, NGPCR1 ####[place] [address] NGPCRon 11-24-2016 GC PCR Source Cervix [facility] ([place]) Comment on above: Performed By: #### C TPCR, NGPCR1 ####[place] [address] N. gonorrhoeae (PCR) Negative [facility] ([place]) Comment on above: Result Comment: Tang sport tube received with two swabs. Review collection procedure. Inappropriate collection may cause aberrant results.Molecular (PCR) assay performed on the [employer] 4800 System. Performed By: #### C TPCR, NGPCR1 ####[address] [address] N. gonorrhoeae Interp N. gonorrhoeae DNA not detected. Specimen is presumptive negative for N. gonorrhoeae. A negative result does not preclude Neisseria gonorrhoeae infection because results depend on adequate specimen collection, absence of inhibitors, and sufficient DNA to be detected. [facility] ([place]) Comment on above: Performed By: #### C TPCR, NGPCR1 ####[place] [id number] Vital Signs Date Time Vital Sign Value Performing Clinician Taisha santiago 10-08-2024 11:33-0400 Body temperature 97.8 [degF] Dr. Jazzy Yañez MD Work Phone: [facility] 10-08-2024 11:33-0400 Diastolic blood pressure 75 mm[Hg] Dr. Jazzy Yañez MD Work Phone: [facility] 10-08-2024 11:33-0400 Heart rate 75 /min Dr. Jazzy Yañez MD Work Phone: [facility] 10-08-2024 11:33-0400 Respiratory rate 16 /min Dr. Jazzy Yañez MD Work Phone: [facility] 10-08-2024 11:33-0400 SaO2% (BldA) [Mass fraction] 99 % Dr. Jazzy Yañez MD Work Phone: [facility] 10-08-2024 11:33-0400 Systolic blood pressure 132 mm[Hg] Dr. Jazzy Yañez MD Work Phone: [facility] 10-08-2024 08:24-0400 Body height 165.[address] Jazzy Yañez MD Work Phone: [facility] 10-08-2024 08:24-0400 Body mass index (BMI) [Ratio] 30.4 kg/m2 Dr. Jazzy Yañez MD Work Phone: [facility] 10-08-2024 08:24-0400 Body weight 82.[address] Jazzy Yañez MD Work Phone: [facility] 09-29-2024 15:57-0400 Body height 165.[address] Jazzy Yañez MD Work Phone: [facility] 09-29-2024 15:57-0400 Body mass index (BMI) [Ratio] 31.1 kg/m2 Dr. Jazzy Yañez MD Work Phone: [facility] 09-29-2024 15:57-0400 Body temperature 97.4 [degF] Dr. Jazzy Yañez MD Work Phone: [facility] 09-29-2024 15:57-0400 Body weight 84.[address] Jazzy Yañez MD Work Phone: [facility] 09-29-2024 15:57-0400 Diastolic blood pressure 78 mm[Hg] Dr. Jazzy Yañez MD Work Phone: [facility] 09-29-2024 15:57-0400 Heart rate 101 /min Dr. Jazzy Yañez MD Work Phone: [facility] 09-29-2024 15:57-0400 Respiratory rate 16 /min Dr. Jazzy Yañez MD Work Phone: [facility] 09-29-2024 15:57-0400 SaO2% (BldA) [Mass fraction] 98 % Dr. Jazzy Yañez MD Work Phone: [facility] 09-29-2024 15:57-0400 Systolic blood pressure 132 mm[Hg] Dr. Jazzy Yañez MD Work Phone: [facility] 09-14-2021 11:00-0400 Body height 165.[address] Jazzy Yañez Work Phone: [facility] Work Phone: 09-14-2021 11:00-0400 Body mass index (BMI) [Ratio] 29.7 kg/m2 Dr. Jazzy Yañez Work Phone: [facility] Work Phone: 09-14-2021 11:00-0400 Body temperature 97.5 [degF] Dr. Jazzy Yañez Work Phone: [facility] Work Phone: 09-14-2021 11:00-0400 Body weight 81.[address] Jazzy Yañez Work Phone: [facility] Work Phone: 09-14-2021 11:00-0400 Diastolic blood pressure 82 mm[Hg] Dr. Jazzy Yañez Work Phone: [facility] Work Phone: 09-14-2021 11:00-0400 Heart rate 84 /min Dr. Jazzy Yañez Work Phone: [facility] Work Phone: 09-14-2021 11:00-0400 Respiratory rate 16 /min Dr. Jazzy Yañez Work Phone: [facility] Work Phone: 09-14-2021 11:00-0400 SaO2% (BldA) [Mass fraction] 99 % Dr. Jazzy Yañez Work Phone: [facility] Work Phone: 09-14-2021 11:00-0400 Systolic blood pressure 140 mm[Hg] Dr. Jazzy Yañez Work Phone: [facility] Work Phone: 08-24-2021 08:05-0400 Body height 165.[address] Jazzy Yañez Work Phone: [facility] Work Phone: 08-24-2021 08:05-0400 Body mass index (BMI) [Ratio] 29.8 kg/m2 Dr. Jazzy Yañez Work Phone: [facility] Work Phone: 08-24-2021 08:05-0400 Body temperature 97.1 [degF] Dr. Jazzy Yañez Work Phone: [facility] Work Phone: 08-24-2021 08:05-0400 Body weight 81.[address] Jazzy Yañez Work Phone: [facility] Work Phone: 08-24-2021 08:05-0400 Diastolic blood pressure 80 mm[Hg] Dr. Jazzy Yañez Work Phone: [facility] Work Phone: 08-24-2021 08:05-0400 Heart rate 81 /min Dr. Jazzy Yañez Work Phone: [facility] Work Phone: 08-24-2021 08:05-0400 Respiratory rate 16 /min Dr. Jazzy Yañez Work Phone: [facility] Work Phone: 08-24-2021 08:05-0400 SaO2% (BldA) [Mass fraction] 99 % Dr. Jazzy Yañez Work Phone: [facility] Work Phone: 08-24-2021 08:05-0400 Systolic blood pressure 142 mm[Hg] Dr. Jazzy Yañez Work Phone: [facility] Work Phone: Encounters Encounter Date Encounter Type Care Provider Facility Start: 10-08-2024 End: 10-08-2024 Emergency department patient visit Dr. Jazzy Yañez MD Work Phone: -Emergency Department Work Phone: Start: 10-06-2024 Patient encounter procedure Giuliana Haywood [employer] -Laboratory Work Phone: Start: 09-29-2024 End: 09-29-2024 Patient encounter procedure Giuliana Haywood [employer] -[facility] Work Phone: Start: 09-29-2024 End: 09-29-[address] Jazzy Yañez MD Work Phone: -[facility] Start: 12-07-2022 End: 12-07-2022 Subsequent hospital visit by physician Ildefonso Torre DPM Work Phone: [facility] Comment on above: Stress fracture, rig ht tibia, initial encounter for fracture Start: 11-28-2022 Transcribe Orders Ildefonso bell DPM Work Phone: [facility] Central Scheduling Comment on above: Stress fracture, rig ht tibia, initial encounter for fracture (Primary Dx) Start: 07-14-2022 End: 07-14-2022 Non-patient / Non-visit Dr. Jazzy Yañez Work Phone: [facility] Start: 07-14-2022 End: 07-14-[address] Jazzy Yañez Work Phone: [facility] Work Phone: Start: 07-14-2022 End: 07-14-[address] Jazzy Yañez Work Phone: [facility]-Pulmonary Services/Neurology Start: 12-24-2021 End: 12-24-2021 Emergency department [facility] Start: 09-14-2021 End: 09-14-[address] Jazzy Yañez Work Phone: [facility] Start: 08-24-2021 End: 08-24-[address] Jazzy Yañez Work Phone: [facility] Start: 05-11-2021 End: 05-11-2021 Emergency department [facility] Start: 11-21-2016 End: 11-26-2016 Ambulatory SULLY GARCIA Facility:B Start: 10-17-2016 End: 10-21-2016 Ambulatory SULLY GARCIA Facility:[facility] Procedures Date Procedure Procedure Detail Performing Clinician Start: 10-08-2024 Computed tomography of abdomen and pelvis with intravenous contrast Dr. Jazzy Yañez MD Work Phone: Start: 10-08-[address] Jazzy Yañez MD Work Phone: Start: 09-14-2021 X-ray of both feet Dr. Jazzy Yañez Work Phone: Plan of Treatment Date Care Activity Detail Author Start: 2028 RSV Immunization age d 60 or older (1 - 1-dose 60+ series) RSV Immunization aged 60 or older (1 - 1-dose 60+ series) [facility] Start: 10-08-2024 [facility] Start: 11-24-2022 COVID-19 Vaccine ( season) COVID-19 Vaccine ( season) [facility] Start: 11-24-2022 Influenza vaccination Influenza Vacc ine (#1) [facility] Start: 07-05-2021 COVID-19 Vaccine (3 - Booster for Moderna series) COVID-19 Vaccine (3 - Booster for Moderna series) [facility] Start: 2018 Zoster Vaccines (1 o f 2) Zoster Vaccines (1 of 2) [facility] Start: 2008 Screening for malign ant neoplasm of breast Mammogram [facility] Start: 1998 Screening for malign ant neoplasm of cervix [facility] Start: 1989 Screening for malign ant neoplasm of cervix Pap Smear [facility] Start: 07-22-1987 DTaP/Tdap/Td Vaccine s (1 - Tdap) DTaP/Tdap/Td Vaccines (1 - Tdap) [facility] Start: 1986 Diabetes mellitus screening Diabetes Screening [facility] Start: 1986 Hepatitis C screening Hepatitis C Sc reening [facility] Start: 1980 Depression Screening Depression Scre ening [facility] Start: 1974 Pneumococcal Vaccine : Pediatrics (0 to 5 Years) and At-Risk Patients (6 to 64 Years) (1 - PCV) Pneumococcal Vaccine: Pediatrics (0 to 5 Years) and At-Risk Patients (6 to 64 Years) (1 - PCV) [facility] Start: 1969 MMR Vaccines (1 of 1 - Standard series) MMR Vaccines (1 of 1 - Standard series) [facility] Start: 1968 Hepatitis B Vaccines (1 of 3 - 3-dose series) Hepatitis B Vaccines (1 of 3 - 3-dose series) [facility] Start: 1968 HIV screening HIV Screening [facility] Start: 1968 Lipid panel Lipid Panel [facility] Start: 1968 Screening for malign ant neoplasm of colon [facility] Basic metabolic 2008 panel with ionized calcium - Serum or Plasma [facility] C reactive protein [Mass/volume] in Serum or Plasma [facility] Complete blood count [facility] MG Breast - bilatera l Screening [facility] Work Phone: End: 12-07-2022 MR Ankle - right [facility] Work Phone: Comment on above: Once for 1 Occurrenc es starting 12/07/2022 until 12/07/2022 OUTSIDE PROCEDURE SCAN OUTSIDE P ROCEDURE SCAN Procedures Ordered: 12/06/2022 [facility]ly [facility] Comment on above: Ordered: 12/06/2022 Patient Education Abdominal Pain ED Dehydration (Adult) ED Renal Insufficiency [facility] Work Phone: T4 free measurement [facility] Thyroid stimulating hormone measurement [facility] Triiodothyronine, fr ee measurement [facility] Urate [Mass/volume] in Serum or Plasma [facility] US Thyroid gland [facility] Work Phone: Payers Date Payer Category Payer Self-pay [id number] 2024 Unknown [id number] 2022 Unknown 2016 Medicaid [id number] 1970 Unknown [id number] 1970 Unknown [id number] Unknown [id number] Unknown [id number] Social History Date Type Detail Facility Start: 08-24-2021 End: 09-14-2021 Tobacco smoking status NYIS Unknown if ever smoked [facility] Start: 1970 Sex Assigned At Female W [facility] Start: 09-14-2021 Tobacco smoking stat [email or web address] Smokes tobacco daily [facility] Start: 05-11-2021 Alcohol intake Ex-drinker (finding) [facility] Start: 05-11-2021 History of Social function [facility] Start: 05-11-2021 Tobacco use panel [facility] Start: 1970 Sex Assigned At Not on file [facility] Start: 11-26-2022 End: 12-06-2022 Exposure to SARS-CoV-2 (event) Not sure [facility] Start: 10-08-2024 Tobacco smoking stat [facility] Ex-smoker (finding) [facility] Mental Status Date Assessment Result Facility 10-08-2024 Cognitive function Level Of Cons ciousness Awake;Alert;Appropriate;Follow s Commands [facility] Work Phone: Radiology Diagnostic study note 10-08-2024 Note Date & Type Note Facility 10-08-2024 Radiology Diagnostic study note [facility] Imaging Services [address] [place] [address] Abdomen/Pelvis W IV Cont ONLY MR#: [id number] Acct: [id number] Name: ARABELLA MO Rep #: [id number] : [id number] F [id number] From: Pricila Patricia MD PCP: Dr. Jazzy Yañez MD Status: R EG ER Study:Abdomen/Pelvis W IV Cont ONLY Date of E xam: 10/08/24 Exam# [id number] Ordering Dr: Brendan Patricia DO EXAM: CT Abdomen and Pelvis With Intravenous Contrast CLINICAL INDICATION: ABD PAIN TECHNIQUE: Axial computed tomography images of the abdomen and pelvis with intravenous contrast. This CT exam was performed using one or more of the following dose reduction techniques: automated exposure control, adjustment of the mA and/or kV according to patient size, and/or use of iterative reconstruction technique. COMPARISON: No relevant prior studies available. FINDINGS: LUNG BASES: Unremarkable. No mass. No consolidation. ABDOMEN: LIVER: Hepatomegaly with fatty infiltration. GALLBLADDER AND BILE DUCTS: Gallbladder is surgically absent. No ductal dilation. PANCREAS: Unremarkable. No mass. No ductal dilation. SPLEEN: Unremarkable. No splenomegaly. ADRENALS: Unremarkable. No mass. KIDNEYS AND URETERS: Unremarkable. No stones within either kidney. No hydronephrosis. STOMACH AND BOWEL: Colonic diverticulosis without acute diverticulitis. No obstruction. PELVIS: APPENDIX: No findings to suggest acute appendicitis. BLADDER: Unremarkable. No mass. REPRODUCTIVE: Unremarkable as visualized. ABDOMEN and PELVIS: INTRAPERITONEAL SPACE: Unremarkable. No free air. No significant fluid collection. BONES/JOINTS: Moderate endplate degenerative changes and disc degeneration of L4-5. No acute fracture. No dislocation. SOFT TISSUES: Unremarkable. VASCULATURE: Unremarkable. No abdominal aortic aneurysm. LYMPH NODES: Unremarkable. No enlarged lymph nodes. CT/Abdomen/Pelvis W IV Cont ONLY IMPRESSION: 1. Hepatomegaly with fatty infiltration. 2. No obstructive uropathy. 3. Colonic diverticulosis without acute diverticulitis. Reading Location: [facility] CC: Dr. Jazzy Yañez MD; Dr. Brendan Patricia DO ~ Squad Boss: Signed [facility] Discharge instructions 10-08-2024 Note Date & Type Note Facility 10-08-2024 Hospital Discharg e instructions Additional Instructions CT abdomen pelvis diverticulosis without diverticulitis. Labs white count was 18 however you are been on steroids. No infectious findings noted. Your creatinine 1.39 today decreased from yesterday. Continue oral fluids for hydration. Follow-up your doctor recheck labs. Take medication as prescribed. [facility] Work Phone: Evaluation note 09-29-2024 Note Date & Type Note Facility 09-29-2024 Evaluation note Diagnosis Onset Date Resolution Gout acute September 29, 2024 3:51pm Thyroid nodule acute September 29, 2024 3:51pm Bilateral foot pain chronic September 29, 2024 3:51pm [facility] Work Phone: Evaluation note Note Date & Type Note Facility Evaluation note Diagnosis Onset Date Breast cancer screening acut e Gout acute Thyroid nodule acute Hypertension [facility] Work Phone: Evaluation note Note Date & Type Note Facility Evaluation note Diagnosis Onset Date Breast cancer screening acut e Gout acute Thyroid nodule acute Hypertension chronic Gout acute Thyroid nodule acute Hypertension [facility] Work Phone: Evaluation note Note Date & Type Note Facility Evaluation note No assessment information availa [facility] Work Phone: Evaluation note Note Date & Type Note Facility Evaluation note Diagnosis Stress fracture, right tibia, initial encounter for fracture documented in this encounter [facility] Evaluation note Note Date & Type Note Facility Evaluation note Diagnosis Stress fracture, right tibia, initial encounter for fracture- Primary Stress fracture, right tibia, initial encounter for fracture documented in this encounter [facility] Reason for referral (narrative) Note Date & Type Note Facility Reason for referral (narrative) No reason for referral information available [facility] [employer] Work Phone: Summary Purpose Family History Relationship Condition Age at Onset Recorded Date/T juve mother Diabetes mellitus Unknown Hypertension Unknown father Malignant neoplasm Unknown Advance Directives Advance Directive Response Recorded Date/ Time Living Will No September 01, 2020 1 1:30am Power of Heading Up Machine Operator No September 01, 2020 11:30am Advance Directive Response Recorded Date/ Time Do you have a [facility] Power of Heading Up Machine Operator? No October 08, 2024 9:46am Chief Complaint and Reason for Visit Chief Complaint Follow up for med re fills Reason for Visit Breast cancer screen ing Gout Thyroid nodule Hypertension Chief Complaint Follow up for med re fills FU FOR BP AND GOUT Reason for Visit Breast cancer screen ing Gout Thyroid nodule Hypertension Gout Thyroid nodule Hypertension Chief Complaint PRE OP PRE OP Chief Complaint Admit Date ACUTE JOINT PAIN September 29, 2024 3:51p m Chief Complaint Admit Date ACUTE JOINT PAIN September 29, 2024 3:51p m INT LAB ORDERS October 06, 2024 11:1 1am gen October 08, 2024 8:23 am Reason for Visit Admit Date Gout September 29, 2024 3:51p m Thyroid nodule September 29, 2024 3:51p m Bilateral foot pain September 29, 2024 3:51p m Reason for Referral Specialty Diagnoses / Procedures Referred By Bud t Referred To Contact Radiology Diagnoses Stress fracture, right tibia, initial encounter for fracture Procedures MR ankle right wo contrast Ildefonso Torre, DPM [address] [place] [address] Referral ID Status Reason Start Date Expiration Date Visits Re quested Visits Authorized [id number] Closed 11/28/2022 05/27/2023 1 1 Additional Source Comments INFORMATION SOURCE (unrecogn ized section and content) DATE CREATED AUTHOR 09/19/2017 [facility] ([place]) DATE CREATED AUTHOR AUTHOR'S ORGANIZ ATION 12/29/2021 [facility] DATE CREATED AUTHOR AUTHOR'S ORGANIZ ATION 10/03/2024 [facility] Goals (unrecognized section and content) Goals may be documented in a n alternate sectionGoals may be documented in an alternate sectionGoals may be documented in an alternate sectionGoals may be documented in an alternate sectionGoals may be documented in an alternate section Care Teams (unrecognized sec tion and content) Team Status: Active Member Role Status Dates Dr. Jazzy Yañez MD Family Provider Active Dr. Jazzy Yañez MD Primary Care Provider Active Team Status: Active Member Role Status Dates Dr. Jazzy Yañez MD Primary Care Provider Active Dr. Sebastian Harp MD Attending Provider Active Dr. Dank Harris MD Referring Provider Active Team Status: Inactive Member Role Status Dates Dr. Jazzy Yañez MD Primary Care Provider Active Dr. Dank Harris MD Attending Provider, Referring Pr ovider Active [employer] Relationship Specialty Start Date End Date Jazzy Yañez [address] [place] [phone] PCP - General Internal Medicine 12/06/22 Jazzy Yañez [address] [place] [phone] Internal Medicine 12/06/22 [employer] Relationship Specialty Start Date End Date Jazzy Yañez PCP - General 05/11/21 12/05/22 Jazzy Yañez [address] [phone] PCP - General Internal Medicine 12/06/22 MarlonmarineJazzy [address] [facility] [address] [place] [phone] Internal Medicine 12/06/22 Team Status: Active Member Role/Relationship Status Dates Dr. Jazzy Yañez MD Family Provider Active Dr. Jazzy Yañez MD Primary Care Provider Active Team Status: Inactive Member Role/Relationship Status Dates Dr. Jazzy Yañez MD Primary Care Provider Active Start: September 29, 2024 End: September 29, 2024 Dr. Jazzy Yañez MD Referring Provider Active Start: September 29, 2024 End: September 29, 2024 SHERMAN Lucero Attending Provider Active Start: September 29, 2024 End: September 29, 2024 Team Status: Active Member Role/Relationship Status Dates Dr. Jazzy Yañez MD Primary Care Provider Active Team Status: Active Member Role/Relationship Status Dates Dr. Jazzy Yañez MD Primary Care Provider Active Start: October 06, 2024 SHERMAN Lucero Attending Provider Active Start: October 06, 2024 SHERMAN Lucero Referring Provider Active Start: October 06, 2024 Team Status: Inactive Member Role/Relationship Status Dates Dr. Jazzy Yañez MD Primary Care Provider Active Start: October 08, 2024 End: October 08, 2024 Dr. Brendan Patricia DO Emergency Provider Active Start : October 08, 2024 End: October 08, 2024 Reason for Visit (unrecogniz ed section and content) Specialty Diagnoses / Procedures Referred By Contac t Referred To Contact Radiology Diagnoses Stress fracture, right tibia, initial encounter for fracture Procedures MR ankle right wo contrast Yelitza, Ildefonso Ray, DPM [address] [place] [address] Referral ID Status Reason Start Date Expiration Date Visits Re quested Visits Authorized [id number] Closed 11/28/2022 05/27/2023 1 1 FOR RECORDS PERTAINING TO PATIENTS WHO ARE OR HAVE BEEN ENROLLED IN A CHEMICAL DEPENDENCY/SUBSTANCEABUSE PROGRAM, SOME INFORMATION MAY BE OMITTED. This clinical summary was aggregated from multiple sources. Caution should be exercised in using it in the provision of clinical care. This summary normalizes information from multiple sources, and as a consequence, information in this document may materially change the coding, format and clinical context of patient data. In addition, data may be omitted in some cases. CLINICAL DECISIONS SHOULD BE BASED ON THE PRIMARY CLINICAL RECORDS. [facility] [employer] [facility]. provides no warranty or guarantee of the accuracy or completeness of information in this document.
--- OUTSIDE RECORDS SUMMARY | 2024-10-08 20:08 | XMS RPT_ITS | CCD ---
Author Organization [facility]ini[facility] Care Team Providers Care Psychiatric Social Worker Name Role Phone SULLY GARCIA Unavailable Unavailable [...] Yañez MD Referring Provider [phone] Ungerer BARGE LOADER-CGiuliana Attending Provider [phone] Giuliana Haywood Attending Unavailable Otilio Efewongbe Referring Unavailable Oleghe, Efewongbe Primary Care Unavailable Ungerer BARGE LOADER-CGiuliana Referring Provider [phone] Dr. Brendan Patricia [...] Auto (Unsp spec) [#/Vol] 2.31 10*3/uL 0.83-4.51 [facility] Absolute neutrophil countOrd ered By: Brendan Patricia on 10-08-2024 Neutrophils (Bld) [#/Vol] 14.0 10*3/uL High 2.0-7.7 [facility] Anion gap in Serum or Plasma Ordered By: Brendan Patricia on 10-08-2024 Anion gap [Moles/Vol] 9 mmol/L 5-15 [facility] Automated lymphocyte count a s percentage of total leukocytesOrdered By: Brendan Patricia on 10-08-2024 Lymphocytes/100 WBC Auto (Unsp spec) 12.6 % Low 19-41 [facility] BUN/creatinine ratioOrdered By: Brendan Patricia on 10-08-2024 Urea nitrogen/Creatinine [Mass ratio] 18.3 mg/mg 10-20 [facility] Basophil percentageOrdered B y: Brendan Patricia on 10-08-2024 Basophils/100 WBC (Bld) 0.6 % 0-1 [facility] Bilirubin, totalOrdered By: Brendan Patricia on 10-08-2024 Bilirubin [Mass/Vol] 0.43 mg/dL 0.00-1.30 [facility] Carbon dioxide, total [Moles /volume] in Central venous bloodOrdered By: Brendan Patricia on 10-08-2024 CO2 [Moles/Vol] 29.1 mmol/L 21.0-32.0 [facility] Chloride assayOrdered By: Afshin Patricia on 10-08-2024 Chloride [Moles/Vol] 102 mmol/L 98-108 [facility] Eosinophil percentageOrdered By: Brendan Patricia on 10-08-2024 Eosinophils/100 WBC (Bld) 1.6 % 0-5 [facility] Erythrocyte distribution wid th ratioOrdered By: Brendan Patricia on 10-08-2024 Erythrocyte distribution width (RBC) [Ratio] 13.2 % 11.6-14.6 [facility] Erythrocyte distribution wid th standard deviationOrdered By: Brendan Patricia on 10-08-2024 Erythrocyte distribution width (RBC) [Ratio] 42.8 fl 35.1-43.9 [facility] Glomerular filtration rate ( GFR) estimation/1.73 sq m using serum, plasma, or whole bOrdered By: Brendan Patricia on 10-08-2024 GFR/1.73 sq M.predicted among non-blacks MDRD (S/P/Bld) [Vol rate/Area] 45 mL/min/{1.73_m2} Low >60 [facility] Comment on above: mL/min/1.73m2 CKD-EP I Creatinine Equation (2020) Hematocrit Auto (Bld) [Volum e fraction]Ordered By: Brendan Patricia on 10-08-2024 Hematocrit (Bld) [Volume fraction] 49.9 % High 37-47 [facility] Hemoglobin measurementOrdere d By: Brendan Patricia on 10-08-2024 Hemoglobin (Bld) [Mass/Vol] 16.4 g/dL High 12.0-15.0 [facility] Immature granulocytes/100 WB C Auto (Bld)Ordered By: Brendan Patricia on 10-08-2024 Immature granulocytes/100 WBC (Bld) 2.200 % High 0.0-0.9 [facility] Comment on above: IG% - Immature Granu locytes (promyelocytes, myelocytes and metamyelocytes) > 1% indicates that a LEFT SHIFT is Present. Laboratory - Chemistry and C hemistry - challengeOrdered By: Brendan Patricia on 10-08-2024 AST [Catalytic activity/Vol] 29 U/L <32 [facility] Lipase measurementOrdered By : Brendan Patricia on 10-08-2024 Lipase [Catalytic activity/Vol] 55 U/L 13-75 [facility] Comment on above: Please note:LIPASE r evised reference range effective 22. New Lipase methodology. Expected to produce lower values than the previous assay method. NEW Reference Range: 13 - 75 U/L MCV (mean corpuscular volume ) determinationOrdered By: Brendan Patricia on 10-08-2024 MCV (RBC) [Entitic vol] 88.5 fL 81-99 [facility] Mean corpuscular hemoglobin (MCH) determinationOrdered By: Brendan Patricia on 10-08-2024 MCH (RBC) [Entitic mass] 29.1 pg 27.0-32.0 [facility] Mean corpuscular hemoglobin concentration (MCHC) determinationOrdered By: Brendan Patricia on 10-08-2024 MCHC (RBC) [Mass/Vol] 32.9 g/dL 32-36 [facility] Mean platelet volume determi nationOrdered By: Brendan Patricia on 10-08-2024 Platelet mean volume (Bld) [Entitic vol] 9.8 fL 6.2-12.0 [facility] Monocyte percentageOrdered B y: Brendan Patricia on 10-08-2024 Monocytes/100 WBC (Bld) 6.7 % 0-10 [facility] Neutrophil percentageOrdered By: Brendan Patricia on 10-08-2024 Neutrophils/100 WBC (Bld) 76.3 % High 47-70 [facility] Nucleated red blood cell per centageOrdered By: Brendan Patricia on 10-08-2024 Nucleated RBC/100 WBC (Bld) [Ratio] 0 % 0-5 [facility] Platelet countOrdered By: Afshin Patricia on 10-08-2024 Platelets (Bld) [#/Vol] 306 10*3/uL 150-450 [facility] Potassium measurement (mass/ volume)Ordered By: Brendan Patricia on 10-08-2024 Potassium (Unsp spec) [Mass/Vol] 4.1 mmol/L 3.3-5.1 [facility] RBC Auto (Bld) [#/Vol]Ordere d By: Brendan Patricia on 10-08-2024 RBC (Bld) [#/Vol] 5.64 10*6/uL High 4.2-5.4 [facility] Serum creatinine measurement (mass/volume)Ordered By: Brendan Patricia on 10-08-2024 Creatinine [Mass/Vol] 1.39 mg/dL High 0.70-1.20 [facility] Serum globulin measurementOr dered By: Brendan Patricia on 10-08-2024 Globulin (S) [Mass/Vol] 2.5 g/dL 2.2-4.2 [facility] Serum glucose measurement (m ass/volume)Ordered By: Brendan Patricia on 10-08-2024 Glucose [Mass/Vol] 89 mg/dL 70-99 [facility] Serum or plasma alanine collins otransferase (ALT) measurementOrdered By: Brendan Patricia on 10-08-2024 ALT [Catalytic activity/Vol] 45 U/L High <35 [facility] Serum or plasma albumin shelly urement (mass/volume)Ordered By: Brendan Patricia on 10-08-2024 Albumin [Mass/Vol] 4.0 g/dL 3.5-5.0 [facility] Serum or plasma albumin/glob ulin mass ratioOrdered By: Brendan Patricia on 10-08-2024 Albumin/Globulin [Mass ratio] 1.6 {ratio} 0.9-2.4 [facility] Serum or plasma alkaline rizwana sphatase measurementOrdered By: Brendan Patricia on 10-08-2024 ALP [Catalytic activity/Vol] 83 U/L 35-104 [facility] Serum or plasma calcium shelly urement (mass/volume)Ordered By: Brendan Patricia on 10-08-2024 Calcium [Mass/Vol] 9.1 mg/dL 7.6-11.0 [facility] Serum or plasma urea nitroge n measurement (mass/volume)Ordered By: Brendan Patricia on 10-08-2024 Urea nitrogen [Mass/Vol] 26 mg/dL High 4-19 [facility] Sodium levelOrdered By: Brendan Patricia on 10-08-2024 Sodium [Moles/Vol] 140 mmol/L 133-145 [facility] Total proteinOrdered By: Harshil Patricia on 10-08-2024 Protein [Mass/Vol] 6.6 g/dL 5.9-8.4 [facility] White blood cell (WBC) count Ordered By: Brendan Patricia on 10-08-2024 WBC (Bld) [#/Vol] 18.3 10*3/uL High 4.4-11.0 [facility] Anion gap in Serum or Plasma Ordered By: Giuliana Haywood on 10-06-2024 Anion gap [Moles/Vol] 12 mmol/L 5-15 [facility] BUN/creatinine ratioOrdered By: Giuliana Haywood on 10-06-2024 Urea nitrogen/Creatinine [Mass ratio] 21.6 mg/mg High 10-20 [facility] Carbon dioxide, total [Moles /volume] in Central venous bloodOrdered By: Giuliana Haywood on 10-06-2024 CO2 [Moles/Vol] 25.3 mmol/L 21.0-32.0 [facility] Chloride assayOrdered By: Wil Haywood on 10-06-2024 Chloride [Moles/Vol] 102 mmol/L 98-108 [facility] Erythrocyte distribution wid th ratioOrdered By: Giuliana Haywood on 10-06-2024 Erythrocyte distribution width (RBC) [Ratio] 13.1 % 11.6-14.6 [facility] Erythrocyte distribution wid th standard deviationOrdered By: Giuliana Haywood on 10-06-2024 Erythrocyte distribution width (RBC) [Ratio] 41.4 fl 35.1-43.9 [facility] Free N1Xksheza By: Giuliana cesar on 10-06-2024 Free T3 [Mass/Vol] 2.3 pg/mL 2.18-3.98 [facility] Glomerular filtration rate ( GFR) estimation/1.73 sq m using serum, plasma, or whole bOrdered By: Giuliana Haywood on 10-06-2024 GFR/1.73 sq M.predicted among non-blacks MDRD (S/P/Bld) [Vol rate/Area] 43 mL/min/{1.73_m2} Low >60 [facility] Comment on above: mL/min/1.73m2 CKD-EP I Creatinine Equation (2020) Hematocrit Auto (Bld) [Volum e fraction]Ordered By: Giuliana Haywood on 10-06-2024 Hematocrit (Bld) [Volume fraction] 48.0 % High 37-47 [facility] Hemoglobin measurementOrdere d By: Giuliana Haywood on 10-06-2024 Hemoglobin (Bld) [Mass/Vol] 15.9 g/dL High 12.0-15.0 [facility] MCV (mean corpuscular volume ) determinationOrdered By: Giuliana Haywood on 10-06-2024 MCV (RBC) [Entitic vol] 88.2 fL 81-99 [facility] Mean corpuscular hemoglobin (MCH) determinationOrdered By: Giulianalawanda Haywood on 10-06-2024 MCH (RBC) [Entitic mass] 29.2 pg 27.0-32.0 [facility] Mean corpuscular hemoglobin concentration (MCHC) determinationOrdered By: Giuliana Haywood on 10-06-2024 MCHC (RBC) [Mass/Vol] 33.1 g/dL 32-36 [facility] Mean platelet volume determi nationOrdered By: Giuliana Haywood on 10-06-2024 Platelet mean volume (Bld) [Entitic vol] 10.0 fL 6.2-12.0 [facility] Platelet countOrdered By: Wil Haywood on 10-06-2024 Platelets (Bld) [#/Vol] 333 10*3/uL 150-450 [facility] Potassium measurement (mass/ volume)Ordered By: Giuliana Haywood on 10-06-2024 Potassium (Unsp spec) [Mass/Vol] 4.0 mmol/L 3.3-5.1 [facility] Comment on above: Hemolysis present, R esults could be affected. RBC Auto (Bld) [#/Vol]Ordere d By: Giuliana Haywood on 10-06-2024 RBC (Bld) [#/Vol] 5.44 10*6/uL High 4.2-5.4 [facility] Serum creatinine measurement (mass/volume)Ordered By: Giuliana Haywood on 10-06-2024 Creatinine [Mass/Vol] 1.43 mg/dL High 0.70-1.20 [facility] Serum glucose measurement (m ass/volume)Ordered By: Giuliana Haywood on 10-06-2024 Glucose [Mass/Vol] 139 mg/dL High 70-99 [facility] Serum or plasma C reactive p rotein measurement (mass/volume)Ordered By: Giuliana Haywood on 10-06-2024 CRP [Mass/Vol] mg/L 0.0-3.0 [facility] Serum or plasma calcium shelly urement (mass/volume)Ordered By: Giuliana Haywood on 10-06-2024 Calcium [Mass/Vol] 9.4 mg/dL 7.6-11.0 [facility] Serum or plasma urea nitroge n measurement (mass/volume)Ordered By: Giuliana Haywood on 10-06-2024 Urea nitrogen [Mass/Vol] 31 mg/dL High 4-19 [facility] Serum or plasma uric acid me asurement (mass/volume)Ordered By: Giuliana Haywood on 10-06-2024 Urate [Mass/Vol] 9.8 mg/dL High 2.6-6.0 [facility] Comment on above: The drugs N-Acetylcy steine and Metamizole may falsely depress this assay. Sodium levelOrdered By: Janette Haywood on 10-06-2024 Sodium [Moles/Vol] 139 mmol/L 133-145 [facility] T4 freeOrdered By: Giuliana cesar on 10-06-2024 Free T4 [Mass/Vol] 1.30 ng/dL 0.76-1.46 [facility] TSH DL <= 0.005 mIU/L QnOrde red By: Giuliana Mcguirenohemy on 10-06-2024 TSH Qn 3.080 uIU/mL 0.300-4.200 [facility] White blood cell (WBC) count Ordered By: Giuliana Bethcristiane on 10-06-2024 WBC (Bld) [#/Vol] 17.3 10*3/uL High 4.4-11.0 [facility] Internal Medicine Office Vis iton 09-29-2024 Internal Medicine Office Visit [facility] [address] [place] [address] [place] [address] OFFICE VISIT Date of Service: 09/29/24 MR#: [id number] Acct: [id number] Name: ARABELLA MO Rep #: [id number] : 1970 Provider: SHERMAN del valle Age/Sex: 54/F Location: [facility] Status: Signed Intake Vital Signs 09/14/21 11:00 [...] ACUTE JOINT PAIN Chief Complaint: joint pain Cadmium Burner Required: No Accompanied by: Self Is patient [...] the morning and after working all day [facility] Medical History Breast cancer screening Thyroid nodule [...] 2 years ago. Patient has been using [id number] ibuprofen for pain control. States continued pain [...] and normoce (more content not included)... Normal [facility] MR Ankle - right WO contrast on 12-11-2022 Impression: Findings suggestive of posterior ankle impingement including a prominent posterior-lateral process of the talus, with a small amount of surrounding soft tissue fluid and edema, and thickening and edema of the posterior talofibular ligament. Report Dictated on Electronically Signed By: Dav Goel MD Electronically Signed Date/Time: 12/11/2022 8:17 AM [facility] Patient Name: ARABELLA MO : 1970 [facility]#: [id number] Exam Date/Time: 12/07/2022 13:43 Procedure: MR ANKLE [...] signal intensity. No evidence of joint effusion. [facility] Dav Goel MD - 12/11/2022 [...] Electronically Signed Date/Time: 12/11/2022 8:17 AM EDT [facility] MR Ankle - right WO contrast Ordered By: Dav Goel on 12-11-2022 [facility] Work Phone: MR Ankle - right WO contrast on 12-07-2022 Radiology Study observation (narrative) [facility] Basophil percentageOrdered B y: Dr. Harris on 07-14-2022 Chloride [Moles/Vol] 109 mmol/L 98-107 [facility] Glucose [Mass/Vol] 81 mg/dL 74-106 [facility] Potassium [Moles/Vol] 3.7 mmol/L 3.5-5.1 [facility] Sodium [Moles/Vol] 138 mmol/L 136-145 [facility] WBC (Bld) [#/Vol] 8.8 10*3/uL 4.4-11.0 [facility] Blood erythrocytes count (nu mber/volume)Ordered By: Dr. Harris on 07-14-2022 RBC (Bld) [#/Vol] 5.20 10*6/uL 4.2-5.4 [facility] hemoglobin measurement (mass/volume)Ordered By: Dr. Harris on 07-14-2022 Hemoglobin (Bld) [Mass/Vol] 15.6 g/dL 12.0-15.0 [facility] Blood platelet mean volumeOr dered By: Dr. Harris on 07-14-2022 Platelet mean volume (Bld) [Entitic vol] 9.8 fL 6.2-12.0 [facility] Determination of erythrocyte mean corpuscular volume (MCV)Ordered By: Dr. Harris on 07-14-2022 MCV (RBC) [Entitic vol] 91.0 fL 81-99 [facility] Hematocrit Auto (Bld) [Volum e fraction]Ordered By: Dr. Harris on 07-14-2022 Hematocrit (Bld) [Volume fraction] 47.3 % 37-47 [facility] Laboratory - Chemistry and C hemistry - challengeOrdered By: Dr. Harris on 07-14-2022 CO2 [Moles/Vol] 31.0 mmol/L 21.0-32.0 [facility] Urea nitrogen/Creatinine [Mass ratio] 13.4 mg/mg 10-20 [facility] Laboratory - Hematology and Cell countsOrdered By: Dr. Harris on 07-14-2022 Erythrocyte distribution width (RBC) [Entitic vol] 40.5 fL 35.1-43.9 [facility] Erythrocyte distribution width (RBC) [Ratio] 12.3 % 11.6-14.6 [facility] MCH (RBC) [Entitic mass] 30.0 pg 27.0-32.0 [facility] MCHC Auto (RBC) [Mass/Vol]Or dered By: Dr. Harris on 07-14-2022 MCHC (RBC) [Mass/Vol] 33.0 g/dL 32-36 [facility] No Panel InformationOrdered By: Dr. Harris on 07-14-2022 Estimated GFR (MDRD) Amer 65 mL/min >60 [facility] Comment on above: GFR Calc Estimated GFR (MDRD) Non-Af Amer 54 mL/min >60 [facility] Comment on above: Non- GFR Calc Platelets bldOrdered By: Dr. Harris on 07-14-2022 Platelets (Bld) [#/Vol] 296 10*3/uL 150-450 [facility] Serum or plasma calcium shelly urement (mass/volume)Ordered By: Dr. Harris on 07-14-2022 Calcium [Mass/Vol] 9.3 mg/dL 8.5-10.1 [facility] Serum or plasma creatinine m easurement (mass/volume)Ordered By: Dr. Harris on 07-14-2022 Creatinine [Mass/Vol] 1.12 mg/dL 0.55-1.02 [facility] Comment on above: The validity of the calculated GFR & GFRAA in patients over 70 years has not been determined. Clinical correlation is essential. Serum or plasma urea nitroge n measurement (mass/volume)Ordered By: Dr. Harris on 07-14-2022 Urea nitrogen [Mass/Vol] 15 mg/dL 7-18 [facility] Thin prep Papanicolaou smear with manual screeningOrdered By: Dr. Harris on 07-14-2022 Thin prep Papanicolaou smear with manual screening -2 5-15 [facility] CR Foot Complete 3+ Views Le fton 12-24-2021 CR Foot Complete 3+ Views Left Patient Name: ARABELLA MO Diagnostic Radiology ACCESSION EXAM DATE/TIME PROCEDURE ORDERING PROVIDER [id number] 12/24/2021 05:49 EDT CR Foot Complete 3+ UNASSIGNED, UNASSIGNED Views Left CPT code 05764 Reason For Exam (CR Foot Complete 3+ [...] Transcribed Date and Time: 12/24/2021 5:56 Normal [facility] ED Provider Noteon ED Provider Note [facility] ED EMERGENCY DEPARTMENT ENCOUNTER Pt Name: Arabella [...] Response: Oriented Best Motor Response: Obeys commands Dolph Coma Scale Score: 15 PHYSICAL EXAM (up [...] Radiology ACCESSION EXAM DATE/TIME PROCEDURE ORDERING PROVIDER [id number] 12/24/2021 05:49 EDT CR Foot Complete 3+ UNASSIGNED, UNASSIGNED Views Left CPT code 53962 Reason For Exam (CR Foot Complete 3+ [...] Time: 12/24/2021 5:55 am Signed by: MD EWBB KEVIN Transcribed Date and Time: 12/24/2021 5:56 [...] MDM . I, Dr. Ramirez, am the mental health clinician of record. I personally saw the patient and performed a substantive portion of the visit including all aspects of the medical decision making. Patient is a 51 y.o. female presenting to the emergency department wit (more content not included)... Normal [facility] Basophil percentageon 2021 Chloride [Moles/Vol] 106 mmol/L 98-107 [facility]: Cholesterol [Mass/Vol] 211 mg/dL <200 [facility] Work Phone: Comment on above: <200 mg/dL Desirable 200-240 mg/dL Borderline >240 mg/dL High Risk Glucose [Mass/Vol] 80 mg/dL 74-106 [facility] Work Phone: Potassium [Moles/Vol] 4.0 mmol/L 3.5-5.1 [facility] Work Phone: Sodium [Moles/Vol] 140 mmol/L 136-145 [facility] Work Phone: Triglyceride [Mass/Vol] 360 mg/dL <199 [facility] Work Phone: Comment on above: The drugs N-Acetylcy steine and Metamizole may falsely depress this assay.Serum Triglycerides Reference Interval Normal <150 mg/dL Borderline high 150 - 199 mg/dL High 200 - 499 mg/dL Very High > or = 500 mg/dL Laboratory - Chemistry and C hemistry - challengeon 09-14-2021 CO2 [Moles/Vol] 31.0 mmol/L 21.0-32.0 [facility] Work Phone: Free T4 [Mass/Vol] 0.95 ng/dL 0.76-1.46 [facility] Work Phone: Urea nitrogen/Creatinine [Mass ratio] 18.2 mg/mg 10-20 [facility] Work Phone: No Panel Informationon 09-14 Estimated GFR (MDRD) Amer 60 mL/min >60 [facility] Work Phone: Comment on above: GFR Calc Estimated GFR (MDRD) Non-Af Amer 49 mL/min >60 [facility] Work Phone: Comment on above: Non- GFR Calc Free Triiodothyronine (T3) pg/dL 2.8 pg/mL 2.18-3.98 [facility] Work Phone: Thyroid Stimulating Hormone (TSH) 1.96 uIU/mL 0.358-3.74 [facility] Work Phone: Serum or plasma calcium shelly urement (mass/volume)on 09-14-2021 Calcium [Mass/Vol] 9.4 mg/dL 8.5-10.1 [facility] Work Phone: Serum or plasma cholesterol in HDL measurement (mass/volume)on 09-14-2021 Cholesterol in HDL [Mass/Vol] 36 mg/dL >40 [facility] Work Phone: Comment on above: The drugs N-Acetylcy steine and Metamizole may falsely depress this assay. Reference Range HDL <40 mg/dL Low HDL Cholesterol HDL >or= 60 mg/dL High HDL Cholesterol Serum or plasma cholesterol in VLDL measurement (mass/volume)on 09-14-2021 Cholesterol in VLDL [Mass/Vol] 72 mg/dL 5-40 [facility] Work Phone: Serum or plasma creatinine m easurement (mass/volume)on 09-14-2021 Creatinine [Mass/Vol] 1.21 mg/dL 0.55-1.02 [facility] Work Phone: Comment on above: The validity of the calculated GFR & GFRAA in patients over 70 years has not been determined. Clinical correlation is essential. Serum or plasma low density lipoprotein (LDL) cholesterol measurement (mass/volume)on 09-14-2021 Cholesterol in LDL [Mass/Vol] 103 mg/dL 0-130 [facility] Work Phone: Serum or plasma urea nitroge n measurement (mass/volume)on 09-14-2021 Urea nitrogen [Mass/Vol] 22 mg/dL 7-18 [facility] Work Phone: Serum or plasma uric acid me asurement (mass/volume)on 09-14-2021 Urate [Mass/Vol] 4.9 mg/dL 2.6-6.0 [facility] Work Phone: Comment on above: The drugs N-Acetylcy steine and Metamizole may falsely depress this assay. Thin prep Papanicolaou smear with manual screeningon 09-14-2021 Thin prep Papanicolaou smear with manual screening 3 5-15 [facility] Work Phone: Absolute lymphocyte counton 08-24-2021 Lymphocytes Auto (Unsp spec) [#/Vol] 2.06 10*3/uL 0.83-4.51 [facility] Work Phone: Basophil percentageon 2021 Basophils/100 WBC (Bld) 0.8 % 0-1 [facility] Work Phone: Bilirubin [Mass/Vol] 0.40 mg/dL 0.20-1.00 [facility] Work Phone: Comment on above: For patients on eltr ombopag therapy, use of [employer] [place] TBIL is not recommended. Chloride [Moles/Vol] 103 mmol/L 98-107 [facility] Work Phone: Cholesterol [Mass/Vol] 237 mg/dL <200 [facility] Work Phone: Comment on above: <200 mg/dL Desirable 200-240 mg/dL Borderline >240 mg/dL High Risk Eosinophils/100 WBC (Bld) 4.3 % 0-5 [facility] Work Phone: Glucose [Mass/Vol] 100 mg/dL 74-106 [facility] Work Phone: Comment on above: Fasting Glucose resu lt from 100 to 125 mg/dL suggests IMPAIRED HOMEOSTASIS per A.D.A. criteria. Neutrophils (Bld) [#/Vol] 6.1 10*3/uL 2.0-7.7 [facility] Work Phone: Neutrophils/100 WBC (Bld) 64.8 % 47-70 [facility] Work Phone: Potassium [Moles/Vol] 3.3 mmol/L 3.5-5.1 [facility] Work Phone: Protein [Mass/Vol] 7.4 g/dL 6.4-8.2 [facility] Work Phone: Sodium [Moles/Vol] 140 mmol/L 136-145 [facility] Work Phone: Triglyceride [Mass/Vol] 364 mg/dL <199 [facility] Work Phone: Comment on above: The drugs N-Acetylcy steine and Metamizole may falsely depress this assay.Serum Triglycerides Reference Interval Normal <150 mg/dL Borderline high 150 - 199 mg/dL High 200 - 499 mg/dL Very High > or = 500 mg/dL WBC (Bld) [#/Vol] 9.3 10*3/uL 4.4-11.0 [facility] Work Phone: Blood erythrocytes count (nu mber/volume)on 08-24-2021 RBC (Bld) [#/Vol] 5.11 10*6/uL 4.2-5.4 [facility] Work Phone: Blood hemoglobin measurement (mass/volume)on 08-24-2021 Hemoglobin (Bld) [Mass/Vol] 15.4 g/dL 12.0-15.0 [facility] Work Phone: Blood lymphocytes/100 leukoc yteson 08-24-2021 Lymphocytes/100 WBC (Bld) 22.1 % 19-41 [facility] Work Phone: Blood monocytes/100 leukocyt eson 08-24-2021 Monocytes/100 WBC (Bld) 7.6 % 0-10 [facility] Work Phone: Blood platelet mean volumeon 08-24-2021 Platelet mean volume (Bld) [Entitic vol] 10.7 fL 6.2-12.0 [facility] Work Phone: Determination of erythrocyte mean corpuscular volume (MCV)on 08-24-2021 MCV (RBC) [Entitic vol] 91.4 fL 81-99 [facility] Work Phone: Hematocrit Auto (Bld) [Volum e fraction]on 08-24-2021 Hematocrit (Bld) [Volume fraction] 46.7 % 37-47 [facility] Work Phone: Laboratory - Chemistry and C hemistry - challengeon 08-24-2021 ALP [Catalytic activity/Vol] 74 U/L 45-117 [facility] Work Phone: ALT [Catalytic activity/Vol] 31 U/L 13-56 [facility] Work Phone: CO2 [Moles/Vol] 28.0 mmol/L 21.0-32.0 [facility] Work Phone: Globulin (S) [Mass/Vol] 3.5 g/dL 2.2-4.2 [facility] Work Phone: Urea nitrogen/Creatinine [Mass ratio] 18.8 mg/mg 10-20 [facility] Work Phone: Laboratory - Hematology and Cell countson 08-24-2021 Erythrocyte distribution width (RBC) [Entitic vol] 41.1 fL 35.1-43.9 [facility] Work Phone: Erythrocyte distribution width (RBC) [Ratio] 12.5 % 11.6-14.6 [facility] Work Phone: Immature granulocytes/100 WBC (Bld) 0.400 % 0.0-0.9 [facility] Work Phone: Comment on above: IG% - Immature Granu locytes (promyelocytes, myelocytes and metamyelocytes) > 1% indicates that a LEFT SHIFT is Present. MCH (RBC) [Entitic mass] 30.1 pg 27.0-32.0 [facility] Work Phone: Nucleated RBC/100 WBC (Bld) [Ratio] 0 % 0-5 [facility] Work Phone: MCHC Auto (RBC) [Mass/Vol]on 08-24-2021 MCHC (RBC) [Mass/Vol] 33.0 g/dL 32-36 [facility] Work Phone: No Panel Informationon 08-24 Estimated GFR (MDRD) Amer 54 mL/min >60 [facility] Work Phone: Comment on above: GFR Calc Estimated GFR (MDRD) Non-Af Amer 44 mL/min >60 [facility] Work Phone: Comment on above: Non- GFR Calc Platelets bldon 08-24-2021 Platelets (Bld) [#/Vol] 285 10*3/uL 150-450 [facility] Work Phone: Serum or plasma albumin shelly urement (mass/volume)on 08-24-2021 Albumin [Mass/Vol] 3.9 g/dL 3.2-5.0 [facility] Work Phone: Serum or plasma albumin/glob ulin mass ratioon 08-24-2021 Albumin/Globulin [Mass ratio] 1.1 {ratio} 0.9-2.4 [facility] Work Phone: Serum or plasma calcium shelly urement (mass/volume)on 08-24-2021 Calcium [Mass/Vol] 9.5 mg/dL 8.5-10.1 [facility] Work Phone: Serum or plasma cholesterol in HDL measurement (mass/volume)on 08-24-2021 Cholesterol in HDL [Mass/Vol] 38 mg/dL >40 [facility] Work Phone: Comment on above: The drugs N-Acetylcy steine and Metamizole may falsely depress this assay. Reference Range HDL <40 mg/dL Low HDL Cholesterol HDL >or= 60 mg/dL High HDL Cholesterol Serum or plasma cholesterol in VLDL measurement (mass/volume)on 08-24-2021 Cholesterol in VLDL [Mass/Vol] 73 mg/dL 5-40 [facility] Work Phone: Serum or plasma creatinine m easurement (mass/volume)on 08-24-2021 Creatinine [Mass/Vol] 1.33 mg/dL 0.55-1.02 [facility] Work Phone: Comment on above: The validity of the calculated GFR & GFRAA in patients over 70 years has not been determined. Clinical correlation is essential. Serum or plasma low density lipoprotein (LDL) cholesterol measurement (mass/volume)on 08-24-2021 Cholesterol in LDL [Mass/Vol] 126 mg/dL 0-130 [facility] Work Phone: Serum or plasma urea nitroge n measurement (mass/volume)on 08-24-2021 Urea nitrogen [Mass/Vol] 25 mg/dL 7-18 [facility] Work Phone: Serum or plasma uric acid me asurement (mass/volume)on 08-24-2021 Urate [Mass/Vol] 9.0 mg/dL 2.6-6.0 [facility] Work Phone: Comment on above: The drugs N-Acetylcy steine and Metamizole may falsely depress this assay. Thin prep Papanicolaou smear with manual screeningon 08-24-2021 Thin prep Papanicolaou smear with manual screening 19 U/L 15-37 [facility] Work Phone: Thin prep Papanicolaou smear with manual screening 9 5-15 [facility] Work Phone: HPVon 12-05-2016 HPV Interp Abnormal [facility] ([place]) Comment on above: Order Comment: Order placed by AP_HPV_ORDER rule from [id number] Performed By: #### H PV ####[place] [address] HPV Source Cervix Normal [facility] ([place]) Comment on above: Order Comment: Order placed by AP_HPV_ORDER rule from [id number] Performed By: #### H PV ####[place] [address] CTPCRon 11-24-2016 C. trachomatis Interp C. trachomatis DNA not detected. Specimen is presumptive negative for C. trachomatis. A negative result does not preclude C. trachomatis infection because results depend on adequate specimen collection, absence of inhibitors, and sufficient DNA to be detected. [facility] ([place]) Comment on above: Performed By: #### C TPCR, NGPCR1 ####[address] [address] C.trachomatis PCR Negative [facility] ([place]) Comment on above: Result Comment: Tang sport tube received with two swabs. Review collection procedure. Inappropriate collection may cause aberrant results.Molecular (PCR) assay performed on the [employer] 4800 system. Performed By: #### C TPCR, NGPCR1 ####[address] [address] Chlam Source Cervix Normal [facility] ([place]) Comment on above: Performed By: #### C TPCR, NGPCR1 ####[place] [address] NGPCRon 11-24-2016 GC PCR Source Cervix Normal [facility] ([place]) Comment on above: Performed By: #### C TPCR, NGPCR1 ####[place] [address] N. gonorrhoeae (PCR) Negative [facility] ([place]) Comment on above: Result Comment: Tang sport tube received with two swabs. Review collection procedure. Inappropriate collection may cause aberrant results.Molecular (PCR) assay performed on the [employer] 4800 System. Performed By: #### C TPCR, NGPCR1 ####[address] [address] N. gonorrhoeae Interp N. gonorrhoeae DNA not detected. Specimen is presumptive negative for N. gonorrhoeae. A negative result does not preclude Neisseria gonorrhoeae infection because results depend on adequate specimen collection, absence of inhibitors, and sufficient DNA to be detected. [facility] ([place]) Comment on above: Performed By: #### C TPCR, NGPCR1 ####[place] [id number] Vital Signs Date Time Vital Sign Value Performing Clinician Taisha santiago 10-08-2024 11:33-0400 Body temperature 97.8 [degF] Dr. Jazzy Yañez MD Work Phone: [facility] 10-08-2024 11:33-0400 Diastolic blood pressure 75 mm[Hg] Dr. Jazzy Yañez MD Work Phone: [facility] 10-08-2024 11:33-0400 Heart rate 75 /min Dr. Jazzy Yañez MD Work Phone: [facility] 10-08-2024 11:33-0400 Respiratory rate 16 /min Dr. Jazzy Yañez MD Work Phone: [facility] 10-08-2024 11:33-0400 SaO2% (BldA) [Mass fraction] 99 % Dr. Jazzy Yañez MD Work Phone: [facility] 10-08-2024 11:33-0400 Systolic blood pressure 132 mm[Hg] Dr. Jazzy Yañez MD Work Phone: [facility] 10-08-2024 08:24-0400 Body height 165.[address] Jazzy Yañez MD Work Phone: [facility] 10-08-2024 08:24-0400 Body mass index (BMI) [Ratio] 30.4 kg/m2 Dr. Jazzy Yañez MD Work Phone: [facility] 10-08-2024 08:24-0400 Body weight 82.[address] Jazzy Yañez MD Work Phone: [facility] 09-29-2024 15:57-0400 Body height 165.[address] Jazzy Yañez MD Work Phone: [facility] 09-29-2024 15:57-0400 Body mass index (BMI) [Ratio] 31.1 kg/m2 Dr. Jazzy Yañez MD Work Phone: [facility] 09-29-2024 15:57-0400 Body temperature 97.4 [degF] Dr. Jazzy Yañez MD Work Phone: [facility] 09-29-2024 15:57-0400 Body weight 84.[address] Jazzy Yañez MD Work Phone: [facility] 09-29-2024 15:57-0400 Diastolic blood pressure 78 mm[Hg] Dr. Jazzy Yañez MD Work Phone: [facility] 09-29-2024 15:57-0400 Heart rate 101 /min Dr. Jazzy Yañez MD Work Phone: [facility] 09-29-2024 15:57-0400 Respiratory rate 16 /min Dr. Jazzy Yañez MD Work Phone: [facility] 09-29-2024 15:57-0400 SaO2% (BldA) [Mass fraction] 98 % Dr. Jazzy Yañez MD Work Phone: [facility] 09-29-2024 15:57-0400 Systolic blood pressure 132 mm[Hg] Dr. Jazzy Yañez MD Work Phone: [facility] 09-14-2021 11:00-0400 Body height 165.[address] Jazzy Yañez Work Phone: [facility] Work Phone: 09-14-2021 11:00-0400 Body mass index (BMI) [Ratio] 29.7 kg/m2 Dr. Jazzy Yañez Work Phone: [facility] Work Phone: 09-14-2021 11:00-0400 Body temperature 97.5 [degF] Dr. Jazzy Yañez Work Phone: [facility] Work Phone: 09-14-2021 11:00-0400 Body weight 81.[address] Jazzy Yañez Work Phone: [facility] Work Phone: 09-14-2021 11:00-0400 Diastolic blood pressure 82 mm[Hg] Dr. Jazzy Yañez Work Phone: [facility] Work Phone: 09-14-2021 11:00-0400 Heart rate 84 /min Dr. Jazzy Yañez Work Phone: [facility] Work Phone: 09-14-2021 11:00-0400 Respiratory rate 16 /min Dr. Jazzy Yañez Work Phone: [facility] Work Phone: 09-14-2021 11:00-0400 SaO2% (BldA) [Mass fraction] 99 % Dr. Jazzy Yañez Work Phone: [facility] Work Phone: 09-14-2021 11:00-0400 Systolic blood pressure 140 mm[Hg] Dr. Jazzy Yañez Work Phone: [facility] Work Phone: 08-24-2021 08:05-0400 Body height 165.[address] Jazzy Yañez Work Phone: [facility] Work Phone: 08-24-2021 08:05-0400 Body mass index (BMI) [Ratio] 29.8 kg/m2 Dr. Jazzy Yañez Work Phone: [facility] Work Phone: 08-24-2021 08:05-0400 Body temperature 97.1 [degF] Dr. Jazzy Yañez Work Phone: [facility] Work Phone: 08-24-2021 08:05-0400 Body weight 81.[address] Jazzy Yañez Work Phone: [facility] Work Phone: 08-24-2021 08:05-0400 Diastolic blood pressure 80 mm[Hg] Dr. Jazzy Yañez Work Phone: [facility] Work Phone: 08-24-2021 08:05-0400 Heart rate 81 /min Dr. Jazzy Yañez Work Phone: [facility] Work Phone: 08-24-2021 08:05-0400 Respiratory rate 16 /min Dr. Jazzy Yañez Work Phone: [facility] Work Phone: 08-24-2021 08:05-0400 SaO2% (BldA) [Mass fraction] 99 % Dr. Jazzy Yañez Work Phone: [facility] Work Phone: 08-24-2021 08:05-0400 Systolic blood pressure 142 mm[Hg] Dr. Jazzy Yañez Work Phone: [facility] Work Phone: Encounters Encounter Date Encounter Type Care Provider Facility Start: 10-08-2024 End: 10-08-2024 Emergency department patient visit Dr. Jazzy Yañez MD Work Phone: -Emergency Department Work Phone: Start: 10-06-2024 Patient encounter procedure Giuliana Haywood BARGE LOADER-C -Laboratory Work Phone: Start: 09-29-2024 End: 09-29-2024 Patient encounter procedure Giuliana Haywood BARGE LOADER-C -[facility] Work Phone: Start: 09-29-2024 End: 09-29-[address] Jazzy Yañez MD Work Phone: -[facility] Start: 12-07-2022 End: 12-07-2022 Subsequent hospital visit by physician Ildefonso Torre DPM Work Phone: [facility] MRI Comment on above: Stress fracture, rig ht tibia, initial encounter for fracture Start: 11-28-2022 Transcribe Orders Ildefonso bell DPM Work Phone: [facility] Scheduling Comment on above: Stress fracture, rig ht tibia, initial encounter for fracture (Primary Dx) Start: 07-14-2022 End: 07-14-2022 Non-patient / Non-visit Dr. Jazzy Yañez Work Phone: [facility] Start: 07-14-2022 End: 07-14-[address] Jazzy Yañez Work Phone: [facility] Work Phone: Start: 07-14-2022 End: 07-14-[address] Jazzy Yañez Work Phone: [facility]-P[facility] Services/Neurology Start: 12-24-2021 End: 12-24-2021 Emergency department patient [facility] Start: 09-14-2021 End: 09-14-[address] Jazzy Yañez Work Phone: [facility] Start: 08-24-2021 End: 08-24-[address] Jazzy Yañez Work Phone: [facility] Start: 05-11-2021 End: 05-11-2021 Emergency department patient visit [facility] Start: 11-21-2016 End: 11-26-2016 Ambulatory SULLY GARCIA Facility:B Start: 10-17-2016 End: 10-21-2016 Ambulatory SULLY GARCIA Facility:[facility] Procedures Date Procedure Procedure Detail Performing Clinician [...] or older (1 - 1-dose 60+ series) [facility] Start: 10-08-2024 [facility] Start: 11-24-2022 COVID-19 Vaccine ( season) COVID-19 Vaccine ( season) [facility] Start: 11-24-2022 Influenza vaccination Influenza Vacc ine (#1) [facility] Start: 07-05-2021 COVID-19 Vaccine (3 - Booster for Moderna series) COVID-19 Vaccine (3 - Booster for Moderna series) [facility] Start: 2018 Zoster Vaccines (1 o f 2) Zoster Vaccines (1 of 2) [facility] Start: 2008 Screening for malign ant neoplasm of breast Mammogram [facility] Start: 1998 Screening for malign ant neoplasm of cervix [facility] Start: 1989 Screening for malign ant neoplasm of cervix Pap Smear [facility] Start: 07-22-1987 DTaP/Tdap/Td Vaccine s (1 - Tdap) DTaP/Tdap/Td Vaccines (1 - Tdap) [facility] Start: 1986 Diabetes mellitus screening Diabetes Screening [facility] Start: 1986 Hepatitis C screening Hepatitis C Sc reening [facility] Start: 1980 Depression Screening Depression Scre ening [facility] Start: 1974 Pneumococcal Vaccine : Pediatrics (0 to 5 Years) and At-Risk Patients (6 to 64 Years) (1 - PCV) Pneumococcal Vaccine: Pediatrics (0 to 5 Years) and At-Risk Patients (6 to 64 Years) (1 - PCV) [facility] Start: 1969 MMR Vaccines (1 of 1 - Standard series) MMR Vaccines (1 of 1 - Standard series) [facility] Start: 1968 Hepatitis B Vaccines (1 of 3 - 3-dose series) Hepatitis B Vaccines (1 of 3 - 3-dose series) [facility] Start: 1968 HIV screening HIV Screening [facility] Start: 1968 Lipid panel Lipid Panel [facility] Start: 1968 Screening for malign ant neoplasm of colon [facility] Basic metabolic 2008 panel with ionized calcium - Serum or Plasma [facility] C reactive protein [Mass/volume] in Serum or Plasma [facility] Complete blood count [facility] MG Breast - bilatera l Screening [facility] Work Phone: End: 12-07-2022 MR Ankle - right [facility] Work Phone: Comment on above: Once for 1 Occurrenc es starting 12/07/2022 until 12/07/2022 OUTSIDE PROCEDURE SCAN OUTSIDE P ROCEDURE SCAN Procedures Ordered: 12/06/2022 [facility] Comment on above: Ordered: 12/06/2022 Patient Education Abdominal Pain ED Dehydration (Adult) ED Renal Insufficiency [facility] Work Phone: T4 free measurement [facility] Thyroid stimulating hormone measurement [facility] Triiodothyronine, fr ee measurement [facility] Urate [Mass/volume] in Serum or Plasma [facility] US Thyroid gland [facility] Work Phone: Payers Date Payer Category Payer Self-pay [id number] 2024 Unknown [id number] 2022 Unknown 2016 Medicaid [id number] 1970 Unknown [id number] 1970 Unknown [id number] Unknown [id number] Unknown [id number] Social History Date Type Detail Facility Start: 08-24-2021 End: 09-14-2021 Tobacco smoking status MOIS Unknown if ever smoked [facility] Start: 1970 Sex Assigned At Female W [facility] Start: 09-14-2021 [facility] Start: 05-11-2021 Alcohol intake Ex-drinker (finding) [facility] Start: 05-11-2021 History of Social function [facility] Start: 05-11-2021 Tobacco use panel [facility] Start: 1970 Sex Assigned At Not on file S [facility] Start: 11-26-2022 End: 12-06-2022 Exposure to SARS-CoV-2 (event) Not sure [facility] Start: 10-08-2024 Tobacco smoking stat [facility] Ex-smoker (finding) [facility] Mental Status Date Assessment Result Facility 10-08-2024 Cognitive function Level Of Cons ciousness Awake;Alert;Appropriate;Follow s Commands [facility] Work Phone: Radiology Diagnostic study note 10-08-2024 Note Date & Type Note Facility 10-08-2024 Radiology Diagnostic study note [facility] Imaging Services [address] [place] [address] Abdomen/Pelvis W IV Cont ONLY MR#: [id number] Acct: [id number] Name: ARABELLA MO Rep #: [id number] F [id number] From: Pricila Patricia MD PCP: Dr. Jazzy Yañez MD Status: R EG ER Study:Abdomen/Pelvis W IV Cont ONLY Date of E xam: 10/08/24 Exam# [id number] Ordering Dr: Brendan Patricia DO EXAM: CT [...] Colonic diverticulosis without acute diverticulitis. Reading Location: [facility] CC: Dr. Jazzy Yañez MD; Dr. Brendan Patricia DO ~ Housing Inspector: Signed [facility] Discharge instructions 10-08-2024 Note Date & Type Note Facility 10-08-2024 Hospital Discharg e instructions Additional Instructions CT abdomen pelvis diverticulosis without diverticulitis. Labs white count was 18 however you are been on steroids. No infectious findings noted. Your creatinine 1.39 today decreased from yesterday. Continue oral fluids for hydration. Follow-up your doctor recheck labs. Take medication as prescribed. [facility] Work Phone: Evaluation note 09-29-2024 Note Date & Type Note Facility 09-29-2024 Evaluation note Diagnosis Onset Date Resolution Gout acute September 29, 2024 3:51pm Thyroid nodule acute September 29, 2024 3:51pm Bilateral foot pain chronic September 29, 2024 3:51pm [facility] Work Phone: Evaluation note Note Date & Type Note Facility Evaluation note Diagnosis Onset Date Breast cancer screening acut e Gout acute Thyroid nodule acute Hypertension [facility] Work Phone: Evaluation note Note Date & Type Note Facility Evaluation note Diagnosis Onset Date Breast cancer screening acut e Gout acute Thyroid nodule acute Hypertension chronic Gout acute Thyroid nodule acute Hypertension [facility] Work Phone: Evaluation note Note Date & Type Note Facility Evaluation note No assessment information availa [facility] Work Phone: Evaluation note Note Date & Type Note Facility Evaluation note Diagnosis Stress fracture, right tibia, initial encounter for fracture documented in this encounter [facility] Evaluation note Note Date & Type Note Facility Evaluation note Diagnosis Stress fracture, right tibia, initial encounter for fracture- Primary Stress fracture, right tibia, initial encounter for fracture documented in this encounter [facility] Reason for referral (narrative) Note Date & Type Note Facility Reason for referral (narrative) No reason for referral information available [facility] [employer] Work Phone: Summary Purpose Family History Relationship Condition Age at Onset Recorded Date/T juve mother Diabetes mellitus Unknown Hypertension Unknown father Malignant neoplasm Unknown Advance Directives Advance Directive Response Recorded Date/ Time Living Will No September 01, 2020 1 1:30am Power of Sr Technical Sales Consultant No September 01, 2020 11:30am Advance Directive Response Recorded Date/ Time Do you have a [facility] Power of Sr Technical Sales Consultant? No October 08, 2024 9:46am Chief Complaint [...] right wo contrast Ildefonso Torre, DPM [address] [place] [address] Referral ID Status Reason Start Date Expiration Date Visits Re quested Visits Authorized [id number] Closed 11/28/2022 05/27/2023 1 1 Additional Source Comments INFORMATION SOURCE (unrecogn ized section and content) DATE CREATED AUTHOR 09/19/2017 [facility] ([place]) DATE CREATED AUTHOR AUTHOR'S ORGANIZ ATION 12/29/2021 [facility] DATE CREATED AUTHOR AUTHOR'S ORGANIZ ATION 10/03/2024 [facility] Goals (unrecognized section and content) Goals [...] MD Attending Provider, Referring Pr ovider Active Psychiatric Social Worker Relationship Specialty Start Date End Date Jazzy Yañez [address] [place] [address] PCP - General Internal Medicine 12/06/22 Jazzy Yañez [address] [place] [phone] Internal Medicine 12/06/22 Psychiatric Social Worker Relationship Specialty Start Date End Date Jazzy Yañez PCP - General 05/11/21 12/05/22 Jazzy Yañez [address] [place] [phone] PCP - General Internal Medicine 12/06/22 MarlonmarineJazzy [address] [facility] [address] [place] [phone] Internal Medicine 12/06/22 Team Status: Active Member [...] wo contrast Yelitza, Ildefonso Ray, DPM [address] [place] [address] Referral ID Status Reason Start Date Expiration Date Visits Re quested Visits Authorized [id number] Closed 11/28/2022 05/27/2023 1 1 FOR RECORDS [...] BE BASED ON THE PRIMARY CLINICAL RECORDS. [facility] [employer] [facility]. provides no warranty or guarantee of the accuracy or completeness of information in this document.
== END 2024-10-08 11:34 | disposition home or self-care (01) ==
PROVIDERS: Emergency Provider Emergency Medicine; PCP Internal Medicine; Visit Provider Emergency Medicine
DX: R10.9 Unspecified abdominal pain (principal); R19.7 Diarrhea, unspecified; E86.0 Dehydration; N28.9 Disorder of kidney and ureter, unspecified; M10.9 Gout, unspecified; R51.9 Headache, unspecified; Z79.899 Other long term (current) drug therapy; Z87.891 Personal history of nicotine dependence
CPT/HCPCS: 74177; 80053; 83690; 85025; 93005; 96361; 96365; 96375; 99283; Q9967; A4216; J2405

== ENCOUNTER → 2025-01-09 | Outpatient (CLI) | payer BC, SELFPAY ==
--- OUTSIDE RECORDS SUMMARY | 2025-01-09 16:07 | XMS RPT_ITS | CCD ---
Author Organization [facility] Care Team Providers Care Fire Safety Director Name Role Phone SULLY GARCIA Unavailable Unavailable PHYSICIAN, NONE Unavailable Unavailable SULLY GARCIA Unavailable Unavailable PHYSICIAN, NONE Unavailable Unavailable Dr. Jazzy Yañez Primary Care Provider [phone] Dr. Jazzy Yañez Attending Provider [phone] Dr. Jazzy Yañez Referring Provider [phone] ASHLEIGH Longo Attending Provider Unavailab Jazzy Fernandez Primary Care Unavailable PROVIDER, UNKNOWN Referring Unavailable Anibal Ramirez Attending Unavailable Jazzy Yañez Primary Care Unavailable PROVIDER, UNKNOWN Referring Unavailable Dank Verma Attending Unavailable Dr. Jazzy Yañez Primary Care Provider [phone] Dr. Sebastian Harp Attending Provider Dr. Dank Harris Referring Provider Jazzy Yañez Unavailable Jesus Yañezongleonel B Primary Care Provider Otilio Efewongbe B Primary Care Provider Dr. Jazzy Yañez MD Primary Care Provider Dr. Jazzy Yañez MD Referring Provider [phone] Ungerer DATA DESIGNER-C, Giuliana Attending Provider [phone] Ungangelar DATA DESIGNER-CGiuliana Referring Provider [phone] Dr. Brendan Patricia DO Emergency Provider Dr. Brendan Patricia DO Attending Provider [phone] Oleghe, Efewongbe Referring Unavailable Giuliana Haywood Attending Unavailable Oleghe, Efewongbe Primary Care Unavailable Giuliana Haywood Attending Unavailable UngererGiuliana Referring Unavailable Oleghe, Efewongbe Primary Care Unavailable Brendan Patricia Attending Unavailable Oleghe, Efewongbe Primary Care Unavailable UngGiuliana sauer Attending Unavailable Oleghe, Efewongbe Primary Care Unavailable Oleghe, Efewongbe Referring Unavailable Oleghe, Efewongbe Primary Care Unavailable Giuliana Haywood Attending Unavailable Oleghe, Efewongbe Referring Unavailable Medications Current Medications Medication Drug Class(es) Dates Sig (Normalized) Sig (Original) allopurinol 100 mg oral tablet (13 sources) Xanthine Oxidase Inhibitor Start: 10-06-2024 End: 11-10-2024 take 1 tablet by mouth once daily Allopurinol 100 mg tablet Active 100 mg PO daily 30 0 November 10, 2024 4:18pm Start: 08-24-2021 End: 09-29-2024 take 1 tablet by mouth once daily Allopurinol 100 mg tablet Discontinued 100 mg PO DAILY 30 2 August 24, 2021 12:00am September 29, 2024 3:59pm Miscellaneous Medical Supply (Blood Pressure Cuff) mis (7 sources) Start: 09-14-2021 Miscellaneous Medical Supply (Blood Pressure Cuff) [facility] Active 0 .Route 1 0 September 14, 2021 12:00am Hypertension Essential (primary) hypertension blood pressure Check daily Start: 09-14-2021 Miscellaneous Medical Supply (Blood Pressure Cuff) [facility] Active 0 .Route 1 September 14, 2021 12:00am Check daily Completed/Discontinued Medications Medication Drug Class(es) Dates Sig (Normalized) Sig (Original) acetaminophen 325 mg / oxyCODONE hydrochloride 5 mg oral tablet (8 sources) Opioid Agonist Start: 04-13-2017 End: 04-18-2017 Oxycodone-Acetamino phen 1 TABLET tablet Discontinued 1 {tbl} PO EVERY 6 HOURS NEEDED as needed for Pain 20 0 April 13, 2017 1:00am April 18, 2017 2:38pm Fracture of fibula Start: 04-13-2017 End: 04-18-2017 take 1 tablet by mouth every six hours as needed Oxycodone-Acetaminophen Discontinued 1 TABLET PO EVERY 6 HOURS NEEDED April 13, 2017 1:00am April 18, 2017 2:38pm cholecalciferol 0.05 mg oral capsule (8 sources) Vitamin D Start: 08-12-2020 End: 08-24-2021 take 1 capsule by mouth once daily Cholecalciferol (Vitamin D3) 50 mcg (2,000 unit) capsule Discontinued 50 ug PO DAILY August 12, 2020 12:00am August 24, 2021 8:08am ciprofloxacin 500 mg oral tablet (8 sources) Quinolone Antimicrobial Start: 08-26-2018 End: 11-28-2018 take 1 tablet by mouth twice daily Ciprofloxacin Hcl 500 mg tablet Discontinued 500 mg PO TWICE A DAY 10 August 26, 2018 12:00am November 28, 2018 2:21pm colchicine 0.6 mg oral tablet (7 sources) Start: 08-30-2021 End: 09-14-2021 take 2 [...] hour Colchicine Discontinued 0.6 MG PO DAILY August 30, 2021 12:00am September 14, 2021 11:02am 1.2mg x 1 then 0.6 mg 1 hour later cyclobenzaprine hydrochloride 5 mg oral tablet (8 sources) Muscle Relaxant Start: 07-27-2020 End: 08-03-2020 take 1 tablet by mouth three times daily as needed for muscle spasms Cyclobenzaprine 5 mg tablet Discontinued 5 mg PO THREE TIMES A DAY as needed for muscle spasm 21 7 0 July 27, 2020 12:00am August 02, 2020 12:00am August 03, 2020 12:01am famotidine 20 mg oral tablet (4 sources) Histamine-2 Receptor Antagonist Start: 10-08-2024 End: 11-10-2024 take 1 tablet by mouth twice daily Famotidine 20 mg tablet Discontinued 20 mg PO TWICE A DAY 20 0 October 08, 2024 12:00am November 10, 2024 3:56pm fenofibrate 54 mg oral tablet (8 sources) Peroxisome Proliferator Receptor alpha Agonist Start: [...] 2018 5:57pm ibuprofen 200 mg oral capsule (16 sources) Nonsteroidal Anti-inflammatory Drug Start: 04-18-2017 End: 10-08-2024 take 1 capsule by mouth once as needed for pain Ibuprofen 200 mg capsule Discontinued 200 mg PO ONCE as needed for Pain November 28, 2018 2:22pm October 08, 2024 9:48am indomethacin 50 mg oral capsule (7 sources) Nonsteroidal Anti-inflammatory Drug Start: 09-14-2021 End: 09-14-2021 take 1 capsule by mouth three times daily at mealtime Indomethacin 50 mg capsule Discontinued 50 mg PO THREE TIMES A DAY 21 7 0 September 14, 2021 12:00am September 20, 2021 12:00am September 14, 2021 11:33am administer with food or milk methylPREDNISolone 4 mg oral tablet (8 sources) Corticosteroid Start: 10-30-2017 End: 07-24-2018 take 1 tablet by mouth once Methylprednisolone (Medrol (Agustin)) 4 mg tablets,dose pack Discontinued 0 PO per package directions 21 0 October 30, 2017 12:00am July 24, 2018 5:45pm PO PER PKG DIR nystatin [id number] unt/ml / triamcinolone acetonide 1 mg/ml topical cream (2 sources) Polyene Antifungal, Corticosteroid Start: 10-20-2024 End: 11-10-2024 Nystatin-Triamcinolo ne 100,000-0.1 unit/g-% cream Discontinued 1 NMA TOPICAL TWICE A DAY 60 0 October 20, 2024 4:09pm November 10, 2024 3:56pm Nystatin-Triamcinolon e 100,000-0.1 unit/g-% cream (2 sources) Start: 10-20-2024 End: 10-20-2024 Nystatin-Triamcinolo ne 100,000-0.1 unit/g-% cream Discontinued 1 NMA TOPICAL TWICE A DAY 60 0 October 20, 2024 12:00am October 20, 2024 4:09pm ondansetron 4 mg disintegrating oral tablet (4 sources) Serotonin-3 Receptor Antagonist Start: 10-08-2024 End: 11-10-2024 take 1 tablet by mouth every eight hours as needed for nausea Ondansetron 4 mg tablet,disintegratin g Discontinued 4 mg PO EVERY 8 HOURS NEEDED as needed for Nausea 10 0 October 08, 2024 12:00am November 10, 2024 3:56pm predniSONE 10 mg oral tablet (16 sources) Start: 09-30-2024 End: 10-20-2024 take 6 tablets by mouth once daily Prednisone 10 mg tablet Discontinued 10 mg PO As Directed 48 0 September 30, 2024 1:04pm October 20, 2024 3:24pm see taper instructions see taper instructions Days [...] tablet Discontinued 10 mg PO DAILY 30 0 September 14, 2021 12:00am September 29, 2024 3:58pm Take 4 tablets for 3 days; Take 3 tablets for 3 days; Take 2 tablets for 3 days; Take 1 tablet for 3 days Take with food or milk Problems Active Problems Problem Classification Problem Date Documented Da te Episodic/Chronic Abdominal pain (6 sources) Unspecified abdominal pain; Translations: [Abdominal pain] Onset: 10-17-2016 10-08-2024 Episodic Essential hypertension (13 sources) Hypertensive disorder; Translations: [Essential (primary) hypertension] Onset: 12-24-2021 Chronic Fluid and electrolyte disorders (4 sources) Dehydration; Translations: [Dehydration] 10-08-2024 Episodic Fracture of lower limb (2 sources) Stress fracture of right tibia; Translations: [Stress fracture, right tibia, initial encounter for fracture] 12-07-2022 Episodic Gout and other crystal arthropathies (16 sources) Gout; Translations: [Gout, unspecified] Onset: 10-09-2024 Chronic Inflammation; infection of eye (except that caused by tuberculosis or sexually transmitteddisease) (8 sources) Conjunctivitis; Translations: [Unspecified conjunctivitis] 07-24-2018 Episodic Other circulatory disease (16 sources) Elevated blood-pressure reading without diagnosis of hypertension; Translations: [Elevated blood-pressure reading, without diagnosis of hypertension] 10-30-2017 Episodic Comment on above: CONTROLLED WITH MED Other connective tissue disease (12 sources) Foot pain; Translations: [Pain in right foot] 11-28-2018 Episodic Other connective tissue disease (2 sources) Pain in left foot; Translations: [Pain in left foot] Onset: 12-24-2021 Episodic Other diseases of kidney and ureters (4 sources) Renal impairment; Translations: [Disorder of kidney and ureter, unspecified] 10-08-2024 Episodic Other gastrointestinal disorders (4 sources) Diarrhea; Translations: [Diarrhea, unspecified] 10-08-2024 Episodic Other injuries and conditions due to external causes (8 sources) H/O: fracture; Translations: [Personal history of (healed) traumatic fracture] 11-28-2018 Episodic Other non-traumatic joint disorders (8 sources) Pain in wrist; Translations: [Pain in left wrist] 10-30-2017 Episodic Other screening for suspected conditions (not mental disorders or infectious disease) (18 sources) Patient encounter status; Translations: [Encounter for screening for malignant neoplasm of colon] Episodic Other skin disorders (4 sources) Eruption; Translations: [Rash and other nonspecific skin eruption] 10-20-2024 Episodic Other skin disorders (1 source) Rash and other nonspecific skin eruption; Translations: [Rash and other nonspecific skin eruption] Onset: 10-21-2024 Episodic Other upper respiratory infections (8 sources) Pharyngitis; Translations: [Acute pharyngitis, unspecified] 07-24-2018 Episodic Residual codes; unclassified (1 source) Illness, unspecified; Translations: [Illness, unspecified] Onset: 10-21-2024 Episodic Substance-related disorders (2 sources) Nicotine dependence, unspecified, uncomplicated; Translations: [Nicotine dependence, unspecified, uncomplicated] Onset: 05-11-2021 Chronic Thyroid disorders (16 sources) Thyroid nodule; Translations: [Nontoxic single thyroid [...] Test Name Value Interpretation Reference Range Facility Internal Medicine Office Vis keron 11-10-2024 Internal Medicine Office Visit [facility] [address] [place] [address] OFFICE VISIT Date of Service: 11/10/24 MR#: [id number] Acct: [id number] Name: ARABELLA MO Rep #: [id number] : 1970 Provider: SHERMAN del valle Age/Sex: 54/F Location: [facility] [place] Status: Signed Intake Vital Signs 10/08/24 08:24 10/20/24 15:25 11/10/24 15:54 Height 5 ft 5 in 5 ft 5 in 5 ft 5 in Weight: 183 lb BMI 30.4 BP 128/92 H Blood Pressure Location Lt brachial Position Sitting Respiration 16 Pulse 95 Pulse Source Monitor Temp 97.8 F Temp Source Temporal Pulse Oximetry (%) 97 Oxygen Delivery Method room air Intake Visit Reasons: 1 M FU Nutrition Internship Required: No Accompanied by: Self Is patient in pain?: Yes (b/l ankles) Pain scale (1-10): 5 Allergies No Known Allergies Allergy (Verified 11/10/24 15:55) Medications ???Medication ???Instructions ???Recorded ???Confirmed ???Type miscellaneous medical supply #1 ea 09/14/21 10/20/24 Rx (Blood Pressure Cuff) allopurinol 100 mg tablet 100 mg PO QDAY #30 tabs 11/10/24 0 11/10/24 Rx colchicine 0.6 mg capsule 0.6 mg PO .COMPLEX #3 caps 5 11/10/24 Rx PFSH Medical History Breast cancer screening Thyroid nodule Gout Wears partial dentures Smoker History of edema Hay fever Elevated BP without diagnosis of hypertension History of lower leg fracture Surgical History Hx of cholecystectomy Family History Mother Diabetes Hypertension Father Cancer Social History Smoking Status: Former smoker alcohol intake: never substance use type: does not use what type of physical activity do you participate in: walking frequency: daily HPI HPI Details: ARABELLA MO, is a 54 F who presents to the office today for follow-up for hyperuricemia and rash. Patient states since discontinuing use of allopurinol and a new body wash that she has not had any further rash. She started taking allopurinol 4 days ago again and remains to no longer have any rash. She does however complain of bilateral knee swelling ankle pain wrist pain stiffness in joints states the joints feel warm and has noticed increased swelling in joints. She has been taking an [id number] BIOflex supplement which she states has been helpful. Patient with a history of gout last uric acid level was greater than 9 and had stopped taking allopurinol due to fear of it causing an adverse reaction of rash. ROS Const Constitutional: No body ache, chills, excessive sweating, fatigue, fever(s), frequent falls, headache(s), snoring, weakness, sleep problems or change in appetite Eyes [...] urination, painful urination, urinary incontinence, urinary frequency, abnormal vaginal bleeding or pelvic pain Musc Musculoskeletal: Positive for joint pain, joint swelling and stiffness; No abnormal gait, back pain, limited range of motion, neck pain, numbness or tingling Skin Skin: Positive for redness; No dry skin, lesions, itchy eyes, rash or wounds Neuro Neurology: No abnormal gait, abnormal hearing, weakness, frequent falls, headache(s), memory loss, numbness or tingling Psych Psychiatric: No anxiety, No change in appetite, No depression, No memory loss and No Thoughts of harming yourself/Others Endo Endocrine: No cold intolerance, excessive sweating, fatigue, flushing, heat intolerance, increased thirst/drinking or increased hunger Aller/Imm Allergy/Immunologic : No itchy eyes, seasonal allergy symptoms, hives or wheezing Nile/Lymp Hematologic/Lymphat ic: No easy bleeding, easy bruising, enlarged lymph nodes or other Exam Const General: cooperative, no acute distress, well groomed and well hydrated Nutritional Appearance: well nourished Orientation: alert and oriented x3 HENMT Head: normal to inspection Ears: hearing grossly normal bilaterally Nose: external nose normal and nares normal Face and sinus: normal facial exam Mouth: oral mucosae normal, lip normal and moist mucous membranes Eyes General: appearance normal, (more content not included)... Normal [facility] Internal Medicine Office Vis keron 10-20-2024 Internal Medicine Office Visit [facility] [address] [place] [address] [place] [address] OFFICE VISIT Date of Service: 10/20/24 MR#: [id number] Acct: [id number] Name: ARABELLA MO Rep #: [id number] : 1970 Provider: SHERMAN del valle Age/Sex: 54/F Location: [facility] [place] Status: Signed Intake Vital Signs 10/08/24 08:24 10/20/24 15:25 Height 5 ft 5 in 5 ft 5 in Weight: 183 lb BMI 30.4 BP 120/78 Blood Pressure Location Lt brachial Position Sitting Respiration 14 Pulse 93 Pulse Source Monitor Temp 98 F Temp Source Temporal Pulse Oximetry (%) 98 Oxygen Delivery Method room air Intake Visit Reasons: RASH ALL OVER Chief Complaint: rash Nutrition Internship Required: No Is patient in pain?: No Allergies No Known Allergies Allergy (Verified 10/20/24 15:19) Medications ???Medication ???Instructions ???Recorded ???Confirmed ???Type miscellaneous medical supply #1 ea 09/14/21 10/20/24 Rx (Blood Pressure Cuff) allopurinol 100 mg tablet 100 mg PO QDAY #30 tabs 10/06/24 0 10/20/24 Rx famotidine 20 mg tablet 20 mg PO BID #20 TABLETS 10/08/24 10/20/24 Rx ondansetron 4 mg disintegrating 4 mg PO Q8H PRN PRN Nausea #10 tab s 10/08/24 10/20/24 Rx tablet nystatin-triamcinol one 100,000 1 applic topical BID #60 grams 10/20/24 Rx unit/g-0.1 % topical cream Nurse's Note: Pt has not yet taken an antihistamine, or done an oatmeal bath, Pt states that she is using calamine and hydrocortisone which have not helped. It is itchy and only hurts if she scratches too hard, and the pain is described as a burning. It has not spread since phone coversation this Am. Pt brought the lotion that she recently changes 4 days ago. Pt started w/ the rash 2 days ago. See phone message. [facility] Medical History Breast cancer screening Thyroid nodule Gout Wears partial dentures Smoker History of edema Hay fever Elevated BP without diagnosis of hypertension History of lower leg fracture Surgical History Hx of cholecystectomy Family History Mother Diabetes Hypertension Father Cancer Social History Smoking Status: Former smoker alcohol intake: never substance use type: does not use what type of physical activity do you participate in: walking frequency: daily HPI HPI Chief Complaint: rash Details: ARABELLA MO, is a 54 F who presents to the office today for onset of rash. Patient started with the rash 2 days ago. Pt has not yet taken an antihistamine, or done an oatmeal bath, Pt states that she is using calamine and hydrocortisone which have not helped. She states that it is itchy and only hurts if she scratches too hard, and the pain is described as burning. It has not spread since this Am. She states that she did recently change lotions 4 days ago. Denies any exposure to new animals or laundry detergent or other soaps. She also did recently start allopurinol however that was several weeks ago and the rash just started 2 days ago. Rash is also under pannus. ROS Const Constitutional: No body ache, chills, excessive sweating, fatigue, fever(s), frequent falls, headache(s), snoring, weakness, sleep problems or change in appetite Eyes [...] urination, painful urination, urinary incontinence, urinary frequency, abnormal vaginal bleeding or pelvic pain Musc Musculoskeletal: No abnormal gait, joint pain, back pain, limited range of motion, neck pain or numbness Skin Skin: Positive for redness, itchy eyes and rash; No dry skin, lesions or wounds Neuro Neurology: No abnormal gait, abnormal hearing, weakness, frequent falls, headache(s), memory loss or numbness Psych Psychiatric: No anxiety, No change in appetite, No depression, No memory loss and No Thoughts of harming yourself/Others Endo Endocrine: No cold intolerance, excessive sweating, fatigue, flushing, heat intolerance, increased thirst/drinking or increased hunger Aller/Imm Allergy/Immunologic : Positive for itchy eyes; No seasonal jemima (more content not included)... Normal [facility] Abdomen/Pelvis W IV Cont ONL Yon 10-08-2024 Abdomen/Pelvis W IV Cont ONLY [facility] [address] [place], [place] [id number] Abdomen/Pelvis W IV Cont ONLY MR#: [id number] Acct: [id number] Name: ARABELLA MO Rep #: [id number] : 1970 F 54 From: Kannan Patricia MD PCP: Dr. Jazzy Yañez MD Status: REG ER Study: Abdomen/Pelvis W IV Cont ONLY Date of Exam: Exam# [id number] Ordering Dr: Brendan Patricia DO EXAM: CT [...] Colonic diverticulosis without acute diverticulitis. Reading Location: [facility] CC: Dr. Jazzy Yañez MD; Dr. Brendan Patricia, Telephone Lineman: Signed Normal [facility] Absolute lymphocyte countOrd ered By: Brendan Patricia on 10-08-2024 Lymphocytes Auto (Unsp spec) [#/Vol] 2.31 10*3/uL 0.83-4.51 [facility] Absolute neutrophil countOrd ered By: Brendan Patricia on 10-08-2024 Neutrophils (Bld) [#/Vol] 14.0 10*3/uL High 2.0-7.7 [facility] Anion gap in Serum or Plasma Ordered By: Brendan Patricia on 10-08-2024 Anion gap [Moles/Vol] 9 mmol/L 5-15 [facility] Automated lymphocyte count a s percentage of total leukocytesOrdered By: Brendan Patricia on 10-08-2024 Lymphocytes/100 WBC Auto (Unsp spec) 12.6 % Low 19-41 [facility] BUN/creatinine ratioOrdered By: Brendan Patricia on 10-08-2024 Urea nitrogen/Creatinine [Mass ratio] 18.3 mg/mg 10-20 [facility] Basophil percentageOrdered B y: Brendan Patricia on 10-08-2024 Basophils/100 WBC (Bld) 0.6 % 0-1 [facility] Bilirubin, totalOrdered By: Brendan Patricia on 10-08-2024 Bilirubin [Mass/Vol] 0.43 mg/dL 0.00-1.30 [facility] CBC W/Diff, Automatedon 09-23 Absolute Lymph 2.31 X10 3/uL Normal 0.83-4.51 [facility] Comment on above: Performed By: #### L 501.2450, L500.4050, L100.0100 #### [facility] [address] [place], [address] Absolute Neut 14.0 X10 3/uL High 2.0-7.7 [facility] Comment on above: Performed By: #### L 501.2450, [id number], L100.0100 #### [facility] [address] [place], [address] Basophils/100 WBC (Bld) 0.6 % Normal 0-1 [facility] Comment on above: Performed By: #### L 501.2450, [id number], L100.0100 #### [facility] [address] [place], [address] Eosinophils/100 WBC (Bld) 1.6 % Normal 0-5 [facility] Comment on above: Performed By: #### L 501.2450, [id number], L100.0100 #### [facility] [address] [place], [address] Erythrocyte distribution width (RBC) [Ratio] 13.2 % Normal 11.6-14.6 [facility] Comment on above: Performed By: #### L 501.2450, [id number], L100.0100 #### [facility] [address] [place], [address] Hematocrit (Bld) [Volume fraction] 49.9 % High 37-47 [facility] Comment on above: Performed By: #### L 501.2450, [id number], L100.0100 #### [facility] [address] [place], [address] Hemoglobin (Bld) [Mass/Vol] 16.4 g/dL High 12.0-15.0 [facility] Comment on above: Performed By: #### L 501.2450, [id number], L100.0100 #### [facility] [address] [place], [address] IG% 2.200 High 0.0-0.9 [facility] Comment on above: Result Comment: IG% - Immature Granulocytes (promyelocytes, myelocytes and metamyelocytes) > 1% indicates that a LEFT SHIFT is Present. Performed By: #### L 501.2450, [id number], L100.0100 #### [facility] [address] [place], [address] Lymphocytes/100 WBC (Bld) 12.6 % Low 19-41 [facility] Comment on above: Performed By: #### L 501.2450, [id number], L100.0100 #### [facility] [address] [place], [address] MCH (RBC) [Entitic mass] 29.1 pg Normal 27.0-32.0 [facility] Comment on above: Performed By: #### L 501.2450, [id number], L100.0100 #### [facility] [address] [place], [address] MCHC (RBC) [Mass/Vol] 32.9 g/dL Normal 32-36 [facility] Comment on above: Performed By: #### L 501.2450, [id number], L100.0100 #### [facility] [address] [place], [address] MCV (RBC) [Entitic vol] 88.5 fL Normal 81-[address] [facility] Comment on above: Performed By: #### L 501.2450, [id number], L100.0100 #### [facility] [address] [place], [address] Monocytes/100 WBC (Bld) 6.7 % Normal 0-10 [facility] Comment on above: Performed By: #### L 501.2450, [id number], L100.0100 #### [facility] [address] [place], [address] Neutrophils/100 WBC (Bld) 76.3 % High 47-70 [facility] Comment on above: Performed By: #### L 501.2450, [id number], L100.0100 #### [facility] [address] [place], [address] Nucleated RBC (Bld) [#/Vol] 0 10*3/uL Normal 0-5 [facility] Comment on above: Performed By: #### L 501.2450, [id number], L100.0100 #### [facility] [address] [place], [address] Platelet mean volume (Bld) [Entitic vol] 9.8 fL Normal 6.2-12.0 [facility] Comment on above: Performed By: #### L 501.2450, [id number], L100.0100 #### [facility] [facility] [address] [place], [address] Platelets (Bld) [#/Vol] 306 10*3/uL Normal 150-450 [facility] Comment on above: Performed By: #### L 501.2450, L500.4050, L100.0100 #### [facility] [address] [place], [address] RBC (Bld) [#/Vol] 5.64 10*6/uL High 4.2-5.4 [facility] Comment on above: Performed By: #### L 501.2450, L500.4050, L100.0100 #### [facility] [address] [place], [address] RDW SD 42.8 fl Normal 35.1-43.9 [facility] Comment on above: Performed By: #### L 501.2450, L500.4050, L100.0100 #### [facility] [address] [place], [address] WBC (Bld) [#/Vol] 18.3 10*3/uL High 4.4-11.0 [facility] Comment on above: Performed By: #### L 501.2450, L500.4050, L100.0100 #### [facility] [address] [place], [address] Carbon dioxide, total [Moles /volume] in Central venous bloodOrdered By: Brendan Patricia on 10-08-2024 CO2 [Moles/Vol] 29.1 mmol/L 21.0-32.0 [facility] Chloride assayOrdered By: Afshin Patricia on 10-08-2024 Chloride [Moles/Vol] 102 mmol/L 98-108 [facility] Comprehensive Metabolic Prof ilon 10-08-2024 Albumin [Mass/Vol] 4.0 g/dL Normal 3.5-5.0 [facility] Comment on above: Performed By: #### L 501.2450, L500.4050, L100.0100 #### [facility] [address] [place], [address] Albumin/Globulin [Mass ratio] 1.6 {ratio} Normal 0.9-2.4 [facility] Comment on above: Performed By: #### L 501.2450, L500.4050, L100.0100 #### [facility] [address] [place], [address] ALK PHOS 83 U/L Normal 35-104 [facility] Comment on above: Performed By: #### L 501.2450, L500.4050, L100.0100 #### [facility] [address] [place], [address] ALT [Catalytic activity/Vol] 45 U/L High <=34 [facility] Comment on above: Performed By: #### L 501.2450, L500.4050, L100.0100 #### [facility] [address] [place], [address] AST [Catalytic activity/Vol] 29 U/L Normal <=31 [facility] Comment on above: Performed By: #### L 501.2450, L500.4050, L100.0100 #### [facility] [address] [place], [address] Bilirubin [Mass/Vol] 0.43 mg/dL Normal 0.00-1.30 [facility] Comment on above: Performed By: #### L 501.2450, L500.4050, L100.0100 #### [facility] [address] [place], [address] BUN/CRE 18.3 RATIO Normal 10-20 [facility] Comment on above: Performed By: #### L 501.2450, L500.4050, L100.0100 #### [facility] [address] [place], [address] Calcium [Mass/Vol] 9.1 mg/dL Normal 7.6-11.0 [facility] Comment on above: Performed By: #### L 501.2450, L500.4050, L100.0100 #### [facility] [address] [place], [address] Chloride [Moles/Vol] 102 mmol/L Normal 98-108 [facility] Comment on above: Performed By: #### L 501.2450, L500.4050, L100.0100 #### [facility] [address] [place], [address] CO2 [Moles/Vol] 29.1 mmol/L Normal 21.0-32.0 [facility] Comment on above: Performed By: #### L 501.2450, L500.4050, L100.0100 #### [facility] [address] [place], [address] Creatinine [Mass/Vol] 1.39 mg/dL High 0.70-1.20 [facility] Comment on above: Performed By: #### L 501.2450, L500.4050, L100.0100 #### [facility] [address] [place], [address] ECRCL 48.04 ml/min Low 50-250 [facility] Comment on above: Performed By: #### L 501.2450, L500.4050, L100.0100 #### [facility] [address] [place], [address] GAP 9 Normal 5-15 [facility] Comment on above: Performed By: #### L 501.2450, L500.4050, L100.0100 #### [facility] [address] [place], [address] GFR/1.73 sq M.predicted among non-blacks MDRD (S/P/Bld) [Vol rate/Area] 45 mL/min/{1.73_m2} Low >60 [facility] Comment on above: Result Comment: mL/m in/1.73m2 CKD-EPI Creatinine Equation (2020) Performed By: #### L 501.2450, L500.4050, L100.0100 #### [facility] [address] [place], [address] Globulin (S) [Mass/Vol] 2.5 g/dL Normal 2.2-4.[address] [facility] Comment on above: Performed By: #### L 501.2450, L500.4050, L100.0100 #### [facility] [address] [place], [address] Glucose [Mass/Vol] 89 mg/dL Normal 70-99 [facility] Comment on above: Performed By: #### L 501.2450, L500.4050, L100.0100 #### [facility] [address] [place], [address] Potassium [Moles/Vol] 4.1 mmol/L Normal 3.3-5.1 [facility] Comment on above: Performed By: #### L 501.2450, L500.4050, L100.0100 #### [facility] [address] [place], [address] Sodium [Moles/Vol] 140 mmol/L Normal 133-145 [facility] Comment on above: Performed By: #### L 501.2450, L500.4050, L100.0100 #### [facility] [address] [place], [address] T PROT 6.6 g/dL Normal 5.9-8.4 [facility] Comment on above: Performed By: #### L 501.2450, L500.4050, L100.0100 #### [facility] [address] [place], [address] Urea nitrogen [Mass/Vol] 26 mg/dL High 4-19 [facility] Comment on above: Performed By: #### L 501.2450, L500.4050, L100.0100 #### [facility] [address] [place], [address] Emergency Department Summary on 10-08-2024 Emergency Department Summary [facility] Records Department [address] [place] [address] Emergency Department Summary 10/08/24 MR#: [id number] Acct: [id number] Name: LGARABELLAIVONE DASILVA Rep #: [id number] : 1970 54 From: Brendan Phillips: Dr. Jazzy Yañez MD Status:DEP ER Location: ED HPI History of Present Illness Chief Complaint: General Illness Informant: patient Narrative Narrative: Presents for evaluation states not feeling well. Diarrhea started 5 days ago for per day had a couple today nonbloody. States nausea no vomiting. She has had headache. Symptoms started 2 days after being started on prednisone for gout by her PCP she stopped her prednisone 2 days ago. No recent antibiotics. She is never been on prednisone in the past. No fever chills or sweats. States lightheaded symptoms she is trying to keep up with oral fluids. No urinary symptoms. No upper respiratory symptoms. PFSH PFSH Medical History Breast cancer screening Thyroid nodule Gout Wears partial dentures Smoker History of edema Hay fever Elevated BP without diagnosis of hypertension History of lower leg fracture Home Medications ???Medication ???Instructions ???Recorded ???Last Taken ???Type miscellaneous medical supply #1 ea 09/14/21 Unknown Rx (Blood Pressure Cuff) prednisone 10 mg tablet 10 mg PO DIRECTED #48 tabs 11/17 Unknown Rx allopurinol 100 mg tablet 100 mg PO QDAY #30 tabs 10/06/24 U nknown Rx famotidine 20 mg tablet 20 mg PO BID #20 TABLETS 10/08/24 Unknown Rx ondansetron 4 mg disintegrating 4 mg PO Q8H PRN PRN Nausea #10 tab s 10/08/24 Unknown Rx tablet Allergy/AdvReac Type Severity Reaction Status Date / Time No Known Allergies Allergy Verified 10/08/24 09:48 Family History Mother Diabetes Hypertension Father Cancer Surgical History Hx of cholecystectomy Social History Smoking Status: Former smoker alcohol intake: never substance use type: does not use what type of physical activity do you participate in: walking frequency: daily ROS ROS ED Constitutional Constitutional ED: Denies fever(s) Cardiovascular Cardiovascular: Reports other Details: Lightheaded ; Denies chest pain Respiratory/Chest Respiratory/Chest: Denies cough Gastrointestinal Gastrointestinal: Reports diarrhea and nausea; Denies vomiting Musculoskeletal Musculoskeletal: Denies none Integumentary Denies rash or wounds Neurologic Neurologic: Reports headache(s); Denies weakness EXAM Physical Exam Const Vital Signs: 10/08/24 08:24 10/08/24 09:46 10/08/24 10:24 Temperature 97.8 F Temperature Source Temporal Pulse Rate 93 64 Respiratory Rate 16 16 Respiratory Effort Normal Non-Labored Respiratory Pattern Normal Blood Pressure 151/80 H 126/66 H Blood Pressure Mean 103 86 Pulse Ox 100 99 Oxygen Delivery Method Room Air Room Air 10/08/24 11:33 Temperature 97.8 F Temperature Source Pulse Rate 75 Respiratory Rate 16 Respiratory Effort Respiratory Pattern Blood Pressure 132/75 H Blood Pressure Mean 94 Pulse Ox 99 Oxygen Delivery Method Positive well nourished and well developed General Appearance ED: well developed HEENT normocephalic and atraumatic Eyes General Eye ED: Yes normal appearance of both eyes Neck full ROM Neck Narrative: No meningismus Resp normal respiratory effort and normal air movement Cardio regular rate and regular rhythm GI soft to palpation GI Narrative: Negative Wagner's or McBurney's tenderness. No guarding or rebound. Extremity normal to inspection and full ROM Neuro oriented x3 and CN's II-XII intact bilaterally Neuro Narrative: No focal deficits Skin no rashes or lesions noted and no wounds MDM MDM MDM Narrative Medical decision making narrative: Interventions / MDM: Differential diagnosis: Diarrhea, abdominal pain, lightheaded, electrolyte abnormalities Diagnosis considered but do not suspect: Diverticulitis however CT negative. My EKG interpretation: Sinus rhythm 83, no ST or T wave changes QTc 427. Imaging independently reviewed and interpreted by myself: CT abdomen pelvis IV contrast: Diverticulosis without diverticulitis. Also read by radiology. External documents reviewed: N/A Test considered but not ordered:N/A ED course: Patient diarrhea for 5 days nonbloody lightheaded symptoms. Reports headache with no meningismal findings. EKG normal IV established for abdominal labs will give Zofran and Pepcid. Will reevaluate. 1020: White count returned at 18. She had lab work yest (more content not included)... Normal [facility] Eosinophil percentageOrdered By: Brendan Patricia on 10-08-2024 Eosinophils/100 WBC (Bld) 1.6 % 0-5 [facility] Erythrocyte distribution wid th ratioOrdered By: Brendan Patricia on 10-08-2024 Erythrocyte distribution width (RBC) [Ratio] 13.2 % 11.6-14.6 [facility] Erythrocyte distribution wid th standard deviationOrdered By: Brendan Patricia on 10-08-2024 Erythrocyte distribution width (RBC) [Ratio] 42.8 fl 35.1-43.9 [facility] Glomerular filtration rate ( GFR) estimation/1.73 sq m using serum, plasma, or whole bOrdered By: Brendan Patricia on 10-08-2024 GFR/1.73 sq M.predicted among non-blacks MDRD (S/P/Bld) [Vol rate/Area] 45 mL/min/{1.73_m2} Low >60 [facility] Comment on above: mL/min/1.73m2 CKD-EP I Creatinine Equation (2020) Hematocrit Auto (Bld) [Volum e fraction]Ordered By: Brendan Patricia on 10-08-2024 Hematocrit (Bld) [Volume fraction] 49.9 % High 37-47 [facility] Hemoglobin measurementOrdere d By: Brendan Patricia on 10-08-2024 Hemoglobin (Bld) [Mass/Vol] 16.4 g/dL High 12.0-15.0 [facility] Immature granulocytes/100 WB C Auto (Bld)Ordered By: Brendan Patricia on 10-08-2024 Immature granulocytes/100 WBC (Bld) 2.200 % High 0.0-0.9 [facility] Comment on above: IG% - Immature Granu locytes (promyelocytes, myelocytes and metamyelocytes) > 1% indicates that a LEFT SHIFT is Present. Laboratory - Chemistry and C hemistry - challengeOrdered By: Brendan Patricia on 10-08-2024 AST [Catalytic activity/Vol] 29 U/L <32 [facility] Lipaseon 10-08-2024 Lipase [Catalytic activity/Vol] 55 U/L Normal 13-75 [facility] Comment on above: Result Comment: Chuy [place] note: LIPASE revised reference range effective 22. New Lipase methodology. Expected to produce lower values than the previous assay method. NEW Reference Range: 13 - 75 U/L Performed By: #### L 501.2450, L500.4050, L100.0100 #### [facility] [place], [address] Lipase measurementOrdered By : Brendan Patricia on 10-08-2024 Lipase [Catalytic activity/Vol] 55 U/L 13-75 [facility] Comment on above: Please note:LIPASE r evised reference range effective 22. New Lipase methodology. Expected to produce lower values than the previous assay method. NEW Reference Range: 13 - 75 U/L MCV (mean corpuscular volume ) determinationOrdered By: Brendan Patricia on 10-08-2024 MCV (RBC) [Entitic vol] 88.5 fL 81-99 [facility] Mean corpuscular hemoglobin (MCH) determinationOrdered By: Brendan Patricia on 10-08-2024 MCH (RBC) [Entitic mass] 29.1 pg 27.0-32.0 [facility] Mean corpuscular hemoglobin concentration (MCHC) determinationOrdered By: Brendan Patricia on 10-08-2024 MCHC (RBC) [Mass/Vol] 32.9 g/dL 32-36 [facility] Mean platelet volume determi nationOrdered By: Brendan Patricia on 10-08-2024 Platelet mean volume (Bld) [Entitic vol] 9.8 fL 6.2-12.0 [facility] Monocyte percentageOrdered B y: Brendan Patricia on 10-08-2024 Monocytes/100 WBC (Bld) 6.7 % 0-10 [facility] Neutrophil percentageOrdered By: Brendan Patricia on 10-08-2024 Neutrophils/100 WBC (Bld) 76.3 % High 47-70 [facility] Nucleated red blood cell per centageOrdered By: Brendan Patricia on 10-08-2024 Nucleated RBC/100 WBC (Bld) [Ratio] 0 % 0-5 [facility] Platelet countOrdered By: Afshin Patricia on 10-08-2024 Platelets (Bld) [#/Vol] 306 10*3/uL 150-450 [facility] Potassium measurement (mass/ volume)Ordered By: Brendan Patricia on 10-08-2024 Potassium (Unsp spec) [Mass/Vol] 4.1 mmol/L 3.3-5.1 [facility] RBC Auto (Bld) [#/Vol]Ordere d By: Brendan Patricia on 10-08-2024 RBC (Bld) [#/Vol] 5.64 10*6/uL High 4.2-5.4 [facility] Serum creatinine measurement (mass/volume)Ordered By: Brendan Patricia on 10-08-2024 Creatinine [Mass/Vol] 1.39 mg/dL High 0.70-1.20 [facility] Serum globulin measurementOr dered By: Brendan Patricia on 10-08-2024 Globulin (S) [Mass/Vol] 2.5 g/dL 2.2-4.2 [facility] Serum glucose measurement (m ass/volume)Ordered By: Brendan Patricia on 10-08-2024 Glucose [Mass/Vol] 89 mg/dL 70-99 [facility] Serum or plasma alanine collins otransferase (ALT) measurementOrdered By: Brendan Patricia on 10-08-2024 ALT [Catalytic activity/Vol] 45 U/L High <35 [facility] Serum or plasma albumin shelly urement (mass/volume)Ordered By: Brendan Patricia on 10-08-2024 Albumin [Mass/Vol] 4.0 g/dL 3.5-5.0 [facility] Serum or plasma albumin/glob ulin mass ratioOrdered By: Brendan Patricia on 10-08-2024 Albumin/Globulin [Mass ratio] 1.6 {ratio} 0.9-2.4 [facility] Serum or plasma alkaline rizwana sphatase measurementOrdered By: Brendan Patricia on 10-08-2024 ALP [Catalytic activity/Vol] 83 U/L 35-104 [facility] Serum or plasma calcium shelly urement (mass/volume)Ordered By: Brendan Patricia on 10-08-2024 Calcium [Mass/Vol] 9.1 mg/dL 7.6-11.0 [facility] Serum or plasma urea nitroge n measurement (mass/volume)Ordered By: Brendan Patricia on 10-08-2024 Urea nitrogen [Mass/Vol] 26 mg/dL High 4-19 [facility] Sodium levelOrdered By: Brendan Patricia on 10-08-2024 Sodium [Moles/Vol] 140 mmol/L 133-145 [facility] Total proteinOrdered By: Harshil alec Belem on 10-08-2024 Protein [Mass/Vol] 6.6 g/dL 5.9-8.4 [facility] White blood cell (WBC) count Ordered By: Brendan Patricia on 10-08-2024 WBC (Bld) [#/Vol] 18.3 10*3/uL High 4.4-11.0 [facility] Anion gap in Serum or Plasma Ordered By: Giuliana Haywood on 10-06-2024 Anion gap [Moles/Vol] 12 mmol/L 5-15 [facility] BUN/creatinine ratioOrdered By: Giuliana Haywood on 10-06-2024 Urea nitrogen/Creatinine [Mass ratio] 21.6 mg/mg High 10- [facility] Basic Metabolic Profile (BMP )on 10-06-2024 BUN/CRE 21.6 RATIO High - [facility] Comment on above: Performed By: #### L 100.0500, L506.0400, L501.6710, L501.1400, L501.07874, L500.2500, L501.9520 ####[facility] [address] [place], [address] Calcium [Mass/Vol] 9.4 mg/dL Normal 7.6-11.0 [facility] Comment on above: Performed By: #### L 100.0500, L506.0400, L501.6710, L501.1400, L501.26399, L500.2500, L501.9520 ####[facility] [address] [place], [address] Chloride [Moles/Vol] 102 mmol/L Normal 98-108 [facility] Comment on above: Performed By: #### L 100.0500, L506.0400, L501.6710, L501.1400, L501.97487, L500.2500, L501.9520 ####[facility] [address] [place], [address] CO2 [Moles/Vol] 25.3 mmol/L Normal 21.0-32.0 [facility] Comment on above: Performed By: #### L 100.0500, L506.0400, L501.6710, L501.1400, L501.18317, L500.2500, L501.9520 ####[facility] [address] [place], [address] Creatinine [Mass/Vol] 1.43 mg/dL High 0.70-1.20 [facility] Comment on above: Performed By: #### L 100.0500, L506.0400, L501.6710, L501.1400, L501.83135, L500.2500, L501.9520 ####[facility] [address] [place], [place], [phone]([phone] GAP 12 Normal 5-15 [facility] Comment on above: Performed By: #### L 100.0500, L506.0400, L501.6710, L501.1400, L501.32456, L500.2500, L501.9520 ####[facility] [address] [place], [place], [id number] GFR/1.73 sq M.predicted among non-blacks MDRD (S/P/Bld) [Vol rate/Area] 43 mL/min/{1.73_m2} Low >60 [facility] Comment on above: Result Comment: mL/m in/1.73m2 CKD-EPI Creatinine Equation (2020) Performed By: #### L 100.0500, L506.0400, L501.6710, L501.1400, L501.59005, L500.2500, L501.9520 ####[facility] [address] [place], [address] Glucose [Mass/Vol] 139 mg/dL High 70-99 [facility] Comment on above: Performed By: #### L 100.0500, L506.0400, L501.6710, L501.1400, L501.76958, L500.2500, L501.9520 ####[facility] [address] [place], [address] Potassium [Moles/Vol] 4.0 mmol/L Normal 3.3-5.1 [facility] Comment on above: Result Comment: Hemo lysis present, Results??could be affected. ?? Performed By: #### L 100.0500, L506.0400, L501.6710, L501.1400, L501.14657, L500.2500, L501.9520 ####[facility] [address] [place], [address] Sodium [Moles/Vol] 139 mmol/L Normal 133-145 [facility] Comment on above: Performed By: #### L 100.0500, L506.0400, L501.6710, L501.1400, L501.93508, L500.2500, L501.9520 ####[facility] [address] [place], [place], [id number] Urea nitrogen [Mass/Vol] 31 mg/dL High 4-19 [facility] Comment on above: Performed By: #### L 100.0500, L506.0400, L501.6710, L501.1400, L501.89295, L500.2500, L501.9520 ####[facility] [address] [place], [address] CBC-Complete Blood Cnt No Di ffon 10-06-2024 Erythrocyte distribution width (RBC) [Ratio] 13.1 % Normal 11.6-14.6 [facility] Comment on above: Performed By: #### L 100.0500, L506.0400, L501.6710, L501.1400, L501.95506, L500.2500, L501.9520 #### [facility] [address] [place], [address] Hematocrit (Bld) [Volume fraction] 48.0 % High 37-47 [facility] Comment on above: Performed By: #### L 100.0500, L506.0400, L501.6710, L501.1400, L501.23941, L500.2500, L501.9520 #### [facility] [address] [place], [address] Hemoglobin (Bld) [Mass/Vol] 15.9 g/dL High 12.0-15.0 [facility] Comment on above: Performed By: #### L 100.0500, L506.0400, L501.6710, L501.1400, L501.46287, L500.2500, L501.9520 #### [facility] [address] [place], [address] MCH (RBC) [Entitic mass] 29.2 pg Normal 27.0-32.0 [facility] Comment on above: Performed By: #### L 100.0500, L506.0400, L501.6710, L501.1400, L501.44764, L500.2500, L501.9520 #### [facility] [address] [place], [address] MCHC (RBC) [Mass/Vol] 33.1 g/dL Normal 32-36 [facility] Comment on above: Performed By: #### L 100.0500, L506.0400, L501.6710, L501.1400, L501.38733, L500.2500, L501.9520 #### [facility] [address] [place], [address] MCV (RBC) [Entitic vol] 88.2 fL Normal 81-99 [facility] Comment on above: Performed By: #### L 100.0500, L506.0400, L501.6710, L501.1400, L501.95818, L500.2500, L501.9520 #### [facility] [address] [place], [address] Platelet mean volume (Bld) [Entitic vol] 10.0 fL Normal 6.2-12.0 [facility] Comment on above: Performed By: #### L 100.0500, L506.0400, L501.6710, L501.1400, L501.50420, L500.2500, L501.9520 #### [facility] [address] [place], [address] Platelets (Bld) [#/Vol] 333 10*3/uL Normal 150-450 [facility] Comment on above: Performed By: #### L 100.0500, L506.0400, L501.6710, L501.1400, L501.77276, L500.2500, L501.9520 #### [facility] [address] [place], [address] RBC (Bld) [#/Vol] 5.44 10*6/uL High 4.2-5.4 [facility] Comment on above: Performed By: #### L 100.0500, L506.0400, L501.6710, L501.1400, L501.40294, L500.2500, L501.9520 #### [facility] [address] [place], [address] RDW SD 41.4 fl Normal 35.1-43.9 [facility] Comment on above: Performed By: #### L 100.0500, L506.0400, L501.6710, L501.1400, L501.14513, L500.2500, L501.9520 #### [facility] [address] [place], [address] WBC (Bld) [#/Vol] 17.3 10*3/uL High 4.4-11.0 [facility] Comment on above: Performed By: #### L 100.0500, L506.0400, L501.6710, L501.1400, L501.71172, L500.2500, L501.9520 #### [facility] [address] [place], [address] CRPon 10-06-2024 C-REACTIVE PROT < 3.00 Normal 0.0-3.0 [facility] Comment on above: Performed By: #### L 100.0500, L506.0400, L501.6710, L501.1400, L501.24885, L500.2500, L501.9520 ####[facility] [address] [place], [address] Carbon dioxide, total [Moles /volume] in Central venous bloodOrdered By: Giuliana Haywood on 10-06-2024 CO2 [Moles/Vol] 25.3 mmol/L 21.0-32.0 [facility] Chloride assayOrdered By: Wil Haywood on 10-06-2024 Chloride [Moles/Vol] 102 mmol/L 98-108 [facility] Erythrocyte distribution wid th ratioOrdered By: Giuliana Mcguirer on 10-06-2024 Erythrocyte distribution width (RBC) [Ratio] 13.1 % 11.6-14.6 [facility] Erythrocyte distribution wid th standard deviationOrdered By: Giuliana Haywood on 10-06-2024 Erythrocyte distribution width (RBC) [Ratio] 41.4 fl 35.1-43.9 [facility] Free T3on 10-06-2024 Free T3 [Mass/Vol] 2.3 pg/mL Normal 2.18-3.98 [facility] Comment on above: Performed By: #### L 100.0500, L506.0400, L501.6710, L501.1400, L501.50959, L500.2500, L501.9520 #### [facility] [address] [place], [address] Free [id number] By: Giuliana cesar on 10-06-2024 Free T3 [Mass/Vol] 2.3 pg/mL 2.18-3.98 [facility] Glomerular filtration rate ( GFR) estimation/1.73 sq m using serum, plasma, or whole bOrdered By: Giuliana Haywood on 10-06-2024 GFR/1.73 sq M.predicted among non-blacks MDRD (S/P/Bld) [Vol rate/Area] 43 mL/min/{1.73_m2} Low >60 [facility] Comment on above: mL/min/1.73m2 CKD-EP I Creatinine Equation (2020) Hematocrit Auto (Bld) [Volum e fraction]Ordered By: Giuliana Haywood on 10-06-2024 Hematocrit (Bld) [Volume fraction] 48.0 % High 37-47 [facility] Hemoglobin measurementOrdere d By: Giuliana Haywood on 10-06-2024 Hemoglobin (Bld) [Mass/Vol] 15.9 g/dL High 12.0-15.0 [facility] MCV (mean corpuscular volume ) determinationOrdered By: Giuliana Haywood on 10-06-2024 MCV (RBC) [Entitic vol] 88.2 fL 81-[address] [facility] Mean corpuscular hemoglobin (MCH) determinationOrdered By: Giuliana Haywood on 10-06-2024 MCH (RBC) [Entitic mass] 29.2 pg 27.0-32.0 [facility] Mean corpuscular hemoglobin concentration (MCHC) determinationOrdered By: Giuliana Haywood on 10-06-2024 MCHC (RBC) [Mass/Vol] 33.1 g/dL 32-36 [facility] Mean platelet volume determi nationOrdered By: Giuliana Haywood on 10-06-2024 Platelet mean volume (Bld) [Entitic vol] 10.0 fL 6.2-12.0 [facility] Platelet countOrdered By: Wil Haywood on 10-06-2024 Platelets (Bld) [#/Vol] 333 10*3/uL 150-450 [facility] Potassium measurement (mass/ volume)Ordered By: Giuliana Haywood on 10-06-2024 Potassium (Unsp spec) [Mass/Vol] 4.0 mmol/L 3.3-5.1 [facility] Comment on above: Hemolysis present, R esults could be affected. RBC Auto (Bld) [#/Vol]Ordere d By: Giuliana Haywood on 10-06-2024 RBC (Bld) [#/Vol] 5.44 10*6/uL High 4.2-5.4 [facility] Serum creatinine measurement (mass/volume)Ordered By: Giuliana Haywood on 10-06-2024 Creatinine [Mass/Vol] 1.43 mg/dL High 0.70-1.20 [facility] Serum glucose measurement (m ass/volume)Ordered By: Giuliana Haywood on 10-06-2024 Glucose [Mass/Vol] 139 mg/dL High 70-99 [facility] Serum or plasma C reactive p rotein measurement (mass/volume)Ordered By: Giuliana Haywood on 10-06-2024 CRP [Mass/Vol] mg/L 0.0-3.0 [facility] Serum or plasma calcium shelly urement (mass/volume)Ordered By: Giuliana Haywood on 10-06-2024 Calcium [Mass/Vol] 9.4 mg/dL 7.6-11.0 [facility] Serum or plasma urea nitroge n measurement (mass/volume)Ordered By: Giuliana Haywood on 10-06-2024 Urea nitrogen [Mass/Vol] 31 mg/dL High 4-19 [facility] Serum or plasma uric acid me asurement (mass/volume)Ordered By: Giuliana Haywood on 10-06-2024 Urate [Mass/Vol] 9.8 mg/dL High 2.6-6.0 [facility] Comment on above: The drugs N-Acetylcy steine and Metamizole may falsely depress this assay. Sodium levelOrdered By: Janette Haywood on 10-06-2024 Sodium [Moles/Vol] 139 mmol/L 133-145 [facility] T4 Free Directon 10-06-2024 T4 FREE DIRECT 1.30 ng/dL Normal 0.76-1.46 [facility] Comment on above: Performed By: #### L 100.0500, L506.0400, L501.6710, L501.1400, L501.61087, L500.2500, L501.9520 ####[facility] [id number] [place], [address] T4 freeOrdered By: Giuliana cesar on 10-06-2024 Free T4 [Mass/Vol] 1.30 ng/dL 0.76-1.46 [facility] TSH DL <= 0.005 mIU/L QnOrde red By: Giuliana Haywood on 10-06-2024 TSH Qn 3.080 uIU/mL 0.300-4.200 [facility] Thyroid Stim Hormone (TSH)on 10-06-2024 TSH 3.080 uIU/mL Normal 0.300-4.200 [facility] Comment on above: Performed By: #### L 100.0500, L506.0400, L501.6710, L501.1400, L501.16782, L500.2500, L501.9520 #### [facility] [address] [place], [address] Uric Acidon 10-06-2024 URIC 9.8 mg/dL High 2.6-6.0 [facility] Comment on above: Result Comment: The drugs N-Acetylcysteine and Metamizole may falsely depress this assay. Performed By: #### L 100.0500, L506.0400, L501.6710, L501.1400, L501.89105, L500.2500, L501.9520 ####[facility] [id number] [place], [address] White blood cell (WBC) count Ordered By: Giuliana Hyawood on 10-06-2024 WBC (Bld) [#/Vol] 17.3 10*3/uL High 4.4-11.0 [facility] Internal Medicine Office Vis iton 09-29-2024 Internal Medicine Office Visit [facility] [address] [place] [address] [place] [address] OFFICE VISIT Date of Service: 09/29/24 MR#: [id number] Acct: [id number] Name: ARABELLA MO Rep #: [id number] : 1970 Provider: SHERMAN del valle Age/Sex: 54/F Location: [facility] [place] Status: Signed Intake Vital Signs 09/14/21 11:00 [...] ACUTE JOINT PAIN Chief Complaint: joint pain Nutrition Internship Required: No Accompanied by: Self Is patient [...] the morning and after working all day [facility] Medical History Breast cancer screening Thyroid [...] 2 years ago. Patient has been using [id number] ibuprofen for pain control. States continued pain [...] and normoce (more content not included)... Normal [facility] MR Ankle - right WO contrast on 12-11-2022 Impression: Findings suggestive of posterior ankle impingement including a prominent posterior-lateral process of the talus, with a small amount of surrounding soft tissue fluid and edema, and thickening and edema of the posterior talofibular ligament. Report Dictated on Electronically Signed By: Dav Goel MD Electronically Signed Date/Time: 12/11/2022 8:17 AM [facility] [employer] RADIOLOGY SYSTEM Patient Name: ARABELLA [place] [facility] 1970 [id number] Exam Date/Time: 12/07/2022 13:43 Procedure: MR ANKLE [...] signal intensity. No evidence of joint effusion. [facility] RADIOLOGY SYSTEM Dav Goel MD - [...] Electronically Signed Date/Time: 12/11/2022 8:17 AM EDT [facility] MR Ankle - right WO contrast Ordered By: Dav Goel on 12-11-2022 [facility] Work Phone: MR Ankle - right WO contrast on 12-07-2022 Radiology Study observation (narrative) [facility] alth Basophil percentageOrdered B y: Dr. Harris on 07-14-2022 Chloride [Moles/Vol] 109 mmol/L 98-107 [facility] Glucose [Mass/Vol] 81 mg/dL 74-106 [facility] Potassium [Moles/Vol] 3.7 mmol/L 3.5-5.1 [facility] Sodium [Moles/Vol] 138 mmol/L 136-145 [facility] WBC (Bld) [#/Vol] 8.8 10*3/uL 4.4-11.0 [facility] Blood erythrocytes count (nu mber/volume)Ordered By: Dr. Harris on 07-14-2022 RBC (Bld) [#/Vol] 5.20 10*6/uL 4.2-5.4 [facility] Blood hemoglobin measurement (mass/volume)Ordered By: Dr. Harris on 07-14-2022 Hemoglobin (Bld) [Mass/Vol] 15.6 g/dL 12.0-15.0 [facility] Blood platelet mean volumeOr dered By: Dr. Harris on 07-14-2022 Platelet mean volume (Bld) [Entitic vol] 9.8 fL 6.2-12.0 [facility] Determination of erythrocyte mean corpuscular volume (MCV)Ordered By: Dr. Harris on 07-14-2022 MCV (RBC) [Entitic vol] 91.0 fL 81-99 [facility] Hematocrit Auto (Bld) [Volum e fraction]Ordered By: Dr. Harris on 07-14-2022 Hematocrit (Bld) [Volume fraction] 47.3 % 37-47 [facility] Laboratory - Chemistry and C hemistry - challengeOrdered By: Dr. Harris on 07-14-2022 CO2 [Moles/Vol] 31.0 mmol/L 21.0-32.0 [facility] Urea nitrogen/Creatinine [Mass ratio] 13.4 mg/mg 10-20 [facility] - Hematology and Cell countsOrdered By: Dr. Harris on 07-14-2022 Erythrocyte distribution width (RBC) [Entitic vol] 40.5 fL 35.1-43.9 [facility] Erythrocyte distribution width (RBC) [Ratio] 12.3 % 11.6-14.6 [facility] MCH (RBC) [Entitic mass] 30.0 pg 27.0-32.0 [facility] MCHC Auto (RBC) [Mass/Vol]Or dered By: Dr. Harris on 07-14-2022 MCHC (RBC) [Mass/Vol] 33.0 g/dL 32-36 [facility] No Panel InformationOrdered By: Dr. Harris on 07-14-2022 Estimated GFR (MDRD) Amer 65 mL/min >60 [facility] Comment on above: GFR Calc Estimated GFR (MDRD) Non-Af Amer 54 mL/min >60 [facility] Comment on above: Non- GFR Calc Platelets bldOrdered By: Dr. Harris on 07-14-2022 Platelets (Bld) [#/Vol] 296 10*3/uL 150-450 [facility] Serum or plasma calcium shelly urement (mass/volume)Ordered By: Dr. Harris on 07-14-2022 Calcium [Mass/Vol] 9.3 mg/dL 8.5-10.1 [facility] Serum or plasma creatinine m easurement (mass/volume)Ordered By: Dr. Harris on 07-14-2022 Creatinine [Mass/Vol] 1.12 mg/dL 0.55-1.02 [facility] Comment on above: The validity of the calculated GFR & GFRAA in patients over 70 years has not been determined. Clinical correlation is essential. Serum or plasma urea nitroge n measurement (mass/volume)Ordered By: Dr. Harris on 07-14-2022 Urea nitrogen [Mass/Vol] 15 mg/dL 7-18 [facility] Thin prep Papanicolaou smear with manual screeningOrdered By: Dr. Harris on 07-14-2022 Thin prep Papanicolaou smear with manual screening -2 5-15 [facility] CR Foot Complete 3+ Views Le fton 12-24-2021 CR Foot Complete 3+ Views Left Patient Name: ARABELLA MO Diagnostic Radiology ACCESSION EXAM DATE/TIME PROCEDURE ORDERING PROVIDER [id number] 12/24/2021 05:49 EDT CR Foot Complete 3+ UNASSIGNED, UNASSIGNED Views Left CPT code 89602 Reason For Exam (CR Foot Complete 3+ [...] Transcribed Date and Time: 12/24/2021 5:56 Normal [facility] ED Provider Noteon ED Provider Note [facility] ED EMERGENCY DEPARTMENT ENCOUNTER Pt Name: Arabella [...] Sexual Activity Alcohol use: Not Currently SCREENINGS [place] Coma Scale Eye Opening: Spontaneous Best Verbal Response: Oriented Best Motor Response: Obeys commands [place] Coma Scale Score: 15 PHYSICAL EXAM (up to 7 for level 4, 8 or more for level 5) ED Triage Vitals BP Temp Temp Source Heart Rate Resp SpO2 Height Weight 12/24/21 0324 12/24/21 0324 12/24/21 0324 12/24/21 0324 12/24/21 0324 12/24/21 0324 12/24/21 0324 12/24/21 0324 (!) 149/100 97.5 ?F (36.4 ?C) Temporal 83 19 99 % 5' 5" (1.651 m) 170 lb (77.1 kg) Physical [...] Radiology ACCESSION EXAM DATE/TIME PROCEDURE ORDERING PROVIDER [id number] 12/24/2021 05:49 EDT CR Foot Complete 3+ UNASSIGNED, UNASSIGNED Views Left CPT code 53879 Reason For Exam (CR Foot Complete 3+ [...] Weight: 77.1 kg (170 lb) Height: 5' 5" (1.651 m) Medications - No data to display MDM . I, Dr. Ramirez, am the stack yield engineer of record. I personally saw the patient and performed a substantive portion of the visit including all aspects of the medical decision making. Patient is a 51 y.o. female presenting to the emergency department wit (more content not included)... Normal [facility] Basophil percentageon 2021 Chloride [Moles/Vol] 106 mmol/L 98-[address] [facility]: Cholesterol [Mass/Vol] 211 mg/dL <200 [facility]: Comment on above: <200 mg/dL Desirable 200-240 mg/dL Borderline >240 mg/dL High Risk Glucose [Mass/Vol] 80 mg/dL 74-106 [facility] Work Phone: Potassium [Moles/Vol] 4.0 mmol/L 3.5-5.1 [facility] Work Phone: Sodium [Moles/Vol] 140 mmol/L 136-145 [facility] Work Phone: Triglyceride [Mass/Vol] 360 mg/dL <199 [facility] Work Phone: Comment on above: The drugs N-Acetylcy steine and Metamizole may falsely depress this assay.Serum Triglycerides Reference Interval Normal <150 mg/dL Borderline high 150 - 199 mg/dL High 200 - 499 mg/dL Very High > or = 500 mg/dL Laboratory - Chemistry and C hemistry - challengeon 09-14-2021 CO2 [Moles/Vol] 31.0 mmol/L 21.0-32.0 [facility] Work Phone: Free T4 [Mass/Vol] 0.95 ng/dL 0.76-1.46 [facility] Work Phone: Urea nitrogen/Creatinine [Mass ratio] 18.2 mg/mg 10-20 [facility] Work Phone: No Panel Informationon 09-14 Estimated GFR (MDRD) Amer 60 mL/min >60 [facility] Work Phone: Comment on above: GFR Calc Estimated GFR (MDRD) Non-Af Amer 49 mL/min >60 [facility] Work Phone: Comment on above: Non- GFR Calc Free Triiodothyronine (T3) pg/dL 2.8 pg/mL 2.18-3.98 [facility] Work Phone: Thyroid Stimulating Hormone (TSH) 1.96 uIU/mL 0.358-3.74 [facility] Work Phone: Serum or plasma calcium shelly urement (mass/volume)on 09-14-2021 Calcium [Mass/Vol] 9.4 mg/dL 8.5-10.1 [facility] Work Phone: Serum or plasma cholesterol in HDL measurement (mass/volume)on 09-14-2021 Cholesterol in HDL [Mass/Vol] 36 mg/dL >40 [facility] Work Phone: Comment on above: The drugs N-Acetylcy steine and Metamizole may falsely depress this assay. Reference Range HDL <40 mg/dL Low HDL Cholesterol HDL >or= 60 mg/dL High HDL Cholesterol Serum or plasma cholesterol in VLDL measurement (mass/volume)on 09-14-2021 Cholesterol in VLDL [Mass/Vol] 72 mg/dL 5-40 [facility] Work Phone: Serum or plasma creatinine m easurement (mass/volume)on 09-14-2021 Creatinine [Mass/Vol] 1.21 mg/dL 0.55-1.02 [facility] Work Phone: Comment on above: The validity of the calculated GFR & GFRAA in patients over 70 years has not been determined. Clinical correlation is essential. Serum or plasma low density lipoprotein (LDL) cholesterol measurement (mass/volume)on 09-14-2021 Cholesterol in LDL [Mass/Vol] 103 mg/dL 0-130 [facility] Work Phone: Serum or plasma urea nitroge n measurement (mass/volume)on 09-14-2021 Urea nitrogen [Mass/Vol] 22 mg/dL 7-18 [facility] Work Phone: Serum or plasma uric acid me asurement (mass/volume)on 09-14-2021 Urate [Mass/Vol] 4.9 mg/dL 2.6-6.0 [facility] Work Phone: Comment on above: The drugs N-Acetylcy steine and Metamizole may falsely depress this assay. Thin prep Papanicolaou smear with manual screeningon 09-14-2021 Thin prep Papanicolaou smear with manual screening 3 5-15 [facility] Work Phone: Absolute lymphocyte counton 08-24-2021 Lymphocytes Auto (Unsp spec) [#/Vol] 2.06 10*3/uL 0.83-4.51 [facility] Work Phone: Basophil percentageon 2021 Basophils/100 WBC (Bld) 0.8 % 0-1 [facility] Work Phone: Bilirubin [Mass/Vol] 0.40 mg/dL 0.20-1.00 [facility] Work Phone: Comment on above: For patients on eltr ombopag therapy, use of Dimension [place] TBIL is not recommended. Chloride [Moles/Vol] 103 mmol/L 98-107 [facility] Work Phone: Cholesterol [Mass/Vol] 237 mg/dL <200 [facility] Work Phone: Comment on above: <200 mg/dL Desirable 200-240 mg/dL Borderline >240 mg/dL High Risk Eosinophils/100 WBC (Bld) 4.3 % 0-5 [facility] Work Phone: Glucose [Mass/Vol] 100 mg/dL 74-106 [facility] Work Phone: Comment on above: Fasting Glucose resu lt from 100 to 125 mg/dL suggests IMPAIRED HOMEOSTASIS per A.D.A. criteria. Neutrophils (Bld) [#/Vol] 6.1 10*3/uL 2.0-7.7 [facility] Work Phone: Neutrophils/100 WBC (Bld) 64.8 % 47-70 [facility] Work Phone: Potassium [Moles/Vol] 3.3 mmol/L 3.5-5.1 [facility] Work Phone: Protein [Mass/Vol] 7.4 g/dL 6.4-8.2 [facility] Work Phone: Sodium [Moles/Vol] 140 mmol/L 136-145 [facility] Work Phone: Triglyceride [Mass/Vol] 364 mg/dL <199 [facility] Work Phone: Comment on above: The drugs N-Acetylcy steine and Metamizole may falsely depress this assay.Serum Triglycerides Reference Interval Normal <150 mg/dL Borderline high 150 - 199 mg/dL High 200 - 499 mg/dL Very High > or = 500 mg/dL WBC (Bld) [#/Vol] 9.3 10*3/uL 4.4-11.0 [facility] Work Phone: Blood erythrocytes count (nu mber/volume)on 08-24-2021 RBC (Bld) [#/Vol] 5.11 10*6/uL 4.2-5.4 [facility] Work Phone: Blood hemoglobin measurement (mass/volume)on 08-24-2021 Hemoglobin (Bld) [Mass/Vol] 15.4 g/dL 12.0-15.0 [facility] Work Phone: Blood lymphocytes/100 leukoc yteson 08-24-2021 Lymphocytes/100 WBC (Bld) 22.1 % 19-41 [facility] Work Phone: Blood monocytes/100 leukocyt eson 08-24-2021 Monocytes/100 WBC (Bld) 7.6 % 0-10 [facility] Work Phone: Blood platelet mean volumeon 08-24-2021 Platelet mean volume (Bld) [Entitic vol] 10.7 fL 6.2-12.0 [facility] Work Phone: Determination of erythrocyte mean corpuscular volume (MCV)on 08-24-2021 MCV (RBC) [Entitic vol] 91.4 fL 81-99 [facility] Work Phone: Hematocrit Auto (Bld) [Volum e fraction]on 08-24-2021 Hematocrit (Bld) [Volume fraction] 46.7 % 37-47 [facility] Work Phone: Laboratory - Chemistry and C hemistry - challengeon 08-24-2021 ALP [Catalytic activity/Vol] 74 U/L 45-117 [facility] Work Phone: ALT [Catalytic activity/Vol] 31 U/L 13-56 [facility] Work Phone: CO2 [Moles/Vol] 28.0 mmol/L 21.0-32.0 [facility] Work Phone: Globulin (S) [Mass/Vol] 3.5 g/dL 2.2-4.2 [facility] Work Phone: Urea nitrogen/Creatinine [Mass ratio] 18.8 mg/mg 10-20 [facility] Work Phone: Laboratory - Hematology and Cell countson 08-24-2021 Erythrocyte distribution width (RBC) [Entitic vol] 41.1 fL 35.1-43.9 [facility] Work Phone: Erythrocyte distribution width (RBC) [Ratio] 12.5 % 11.6-14.6 [facility] Work Phone: Immature granulocytes/100 WBC (Bld) 0.400 % 0.0-0.9 [facility] Work Phone: Comment on above: IG% - Immature Granu locytes (promyelocytes, myelocytes and metamyelocytes) > 1% indicates that a LEFT SHIFT is Present. MCH (RBC) [Entitic mass] 30.1 pg 27.0-32.0 [facility] Work Phone: Nucleated RBC/100 WBC (Bld) [Ratio] 0 % 0-5 [facility] Work Phone: MCHC Auto (RBC) [Mass/Vol]on 08-24-2021 MCHC (RBC) [Mass/Vol] 33.0 g/dL 32-36 [facility] Work Phone: No Panel Informationon 08-24 Estimated GFR (MDRD) Amer 54 mL/min >60 [facility] Work Phone: Comment on above: GFR Calc Estimated GFR (MDRD) Non-Af Amer 44 mL/min >60 [facility] Work Phone: Comment on above: Non- GFR Calc Platelets bldon 08-24-2021 Platelets (Bld) [#/Vol] 285 10*3/uL 150-450 [facility] Work Phone: Serum or plasma albumin shelly urement (mass/volume)on 08-24-2021 Albumin [Mass/Vol] 3.9 g/dL 3.2-5.0 [facility] Work Phone: Serum or plasma albumin/glob ulin mass ratioon 08-24-2021 Albumin/Globulin [Mass ratio] 1.1 {ratio} 0.9-2.4 [facility] Work Phone: Serum or plasma calcium shelly urement (mass/volume)on 08-24-2021 Calcium [Mass/Vol] 9.5 mg/dL 8.5-10.1 [facility] Work Phone: Serum or plasma cholesterol in HDL measurement (mass/volume)on 08-24-2021 Cholesterol in HDL [Mass/Vol] 38 mg/dL >40 [facility] Work Phone: Comment on above: The drugs N-Acetylcy steine and Metamizole may falsely depress this assay. Reference Range HDL <40 mg/dL Low HDL Cholesterol HDL >or= 60 mg/dL High HDL Cholesterol Serum or plasma cholesterol in VLDL measurement (mass/volume)on 08-24-2021 Cholesterol in VLDL [Mass/Vol] 73 mg/dL 5-40 [facility] Work Phone: Serum or plasma creatinine m easurement (mass/volume)on 08-24-2021 Creatinine [Mass/Vol] 1.33 mg/dL 0.55-1.02 [facility] Work Phone: Comment on above: The validity of the calculated GFR & GFRAA in patients over 70 years has not been determined. Clinical correlation is essential. Serum or plasma low density lipoprotein (LDL) cholesterol measurement (mass/volume)on 08-24-2021 Cholesterol in LDL [Mass/Vol] 126 mg/dL 0-130 [facility] Work Phone: Serum or plasma urea nitroge n measurement (mass/volume)on 08-24-2021 Urea nitrogen [Mass/Vol] 25 mg/dL 7-18 [facility] Work Phone: Serum or plasma uric acid me asurement (mass/volume)on 08-24-2021 Urate [Mass/Vol] 9.0 mg/dL 2.6-6.0 [facility] Work Phone: Comment on above: The drugs N-Acetylcy steine and Metamizole may falsely depress this assay. Thin prep Papanicolaou smear with manual screeningon 08-24-2021 Thin prep Papanicolaou smear with manual screening 19 U/L 15-37 [facility] Work Phone: Thin prep Papanicolaou smear with manual screening 9 5-15 [facility] Work Phone: HPVon 12-05-2016 HPV Interp [facility] Comment on above: Order Comment: Order placed by AP_HPV_ORDER rule from [id number] Performed By: #### H PV ####[place] [address] HPV Source Cervix Normal [facility] Comment on above: Order Comment: Order placed by AP_HPV_ORDER rule from [id number] Performed By: #### H PV ####[place] [address] CTPCRon 11-24-2016 C. trachomatis Interp C. trachomatis DNA not detected. Specimen is presumptive negative for C. trachomatis. A negative result does not preclude C. trachomatis infection because results depend on adequate specimen collection, absence of inhibitors, and sufficient DNA to be detected. [facility] Comment on above: Performed By: #### C TPCR, [email or web address] ####[place] [address] C.trachomatis PCR Negative [facility] Comment on above: Result Comment: Tang sport tube received with two swabs. Review collection procedure. Inappropriate collection may cause aberrant results.Molecular (PCR) assay performed on the [employer] 4800 system. Performed By: #### C TPCR, [email or web address] ####[address] [address] Chlam Source Cervix Normal [facility] ([place]) Comment on above: Performed By: #### C TPCR, NGPCR1 ####[address] [address] NGPCRon 11-24-2016 GC PCR Source Cervix [facility] Comment on above: Performed By: #### C TPCR, NGPCR1 ####[address] [address] N. gonorrhoeae (PCR) Negative [facility] Comment on above: Result Comment: Tang sport tube received with two swabs. Review collection procedure. Inappropriate collection may cause aberrant results.Molecular (PCR) assay performed on the [employer] 4800 System. Performed By: #### C TPCR, NGPCR1 ####[address] [address] N. gonorrhoeae Interp N. gonorrhoeae DNA not detected. Specimen is presumptive negative for N. gonorrhoeae. A negative result does not preclude Neisseria gonorrhoeae infection because results depend on adequate specimen collection, absence of inhibitors, and sufficient DNA to be detected. [facility] ([place]) Comment on above: Performed By: #### C TPCR, [email or web address] ####[address] [address] Vital Signs Date Time Vital Sign Value Performing Clinician Faci lity 11-10-2024 15:54-0400 Body height 165.[address] Jazzy Yañez MD Work Phone: [facility] 11-10-2024 15:54-0400 Body mass index (BMI) [Ratio] 30.4 kg/m2 Dr. Jazzy Yañez MD Work Phone: [facility] 11-10-2024 15:54-0400 Body temperature 97.8 [degF] Dr. Jazzy Yañez MD Work Phone: [facility] 11-10-2024 15:54-0400 Body weight [address] Jazzy Yañez MD Work Phone: [facility] 11-10-2024 15:54-0400 Diastolic blood pressure 92 mm[Hg] Dr. Jazzy Yañez MD Work Phone: [facility] 11-10-2024 15:54-0400 Heart rate 95 /min Dr. Jazzy Yañez MD Work Phone: [facility] 11-10-2024 15:54-0400 Respiratory rate 16 /min Dr. Jazzy Yañez MD Work Phone: [facility] 11-10-2024 15:54-0400 SaO2% (BldA) [Mass fraction] 97 % Dr. Jazzy Yañez MD Work Phone: [facility] 11-10-2024 15:54-0400 Systolic blood pressure 128 mm[Hg] Dr. Jazzy Yañez MD Work Phone: [facility] 10-20-2024 15:25-0400 Body height 165.[address] Jazzy Yañez MD Work Phone: [facility] 10-20-2024 15:25-0400 Body mass index (BMI) [Ratio] 30.4 kg/m2 Dr. Jazzy Yañez MD Work Phone: [facility] 10-20-2024 15:25-0400 Body temperature 98 [degF] Dr. Jazzy Yañez MD Work Phone: [facility] 10-20-2024 15:25-0400 Body weight [address] Jazzy Yañez MD Work Phone: [facility] 10-20-2024 15:25-0400 Diastolic blood pressure 78 mm[Hg] Dr. Jazzy Yañez MD Work Phone: [facility] 10-20-2024 15:25-0400 Heart rate 93 /min Dr. Jazzy Yañez MD Work Phone: [facility] 10-20-2024 15:25-0400 Respiratory rate 14 /min Dr. Jazzy Yañez MD Work Phone: [facility] 10-20-2024 15:25-0400 SaO2% (BldA) [Mass fraction] 98 % Dr. Jazzy Yañez MD Work Phone: [facility] 10-20-2024 15:25-0400 Systolic blood pressure 120 mm[Hg] Dr. Jazzy Yañez MD Work Phone: [facility] 10-08-2024 11:33-0400 Body temperature 97.8 [degF] Dr. Jazzy Yañez MD Work Phone: [facility] 10-08-2024 11:33-0400 Diastolic blood pressure 75 mm[Hg] Dr. Jazzy Yañez MD Work Phone: [facility] 10-08-2024 11:33-0400 Heart rate 75 /min Dr. Jazzy Yañez MD Work Phone: [facility] 10-08-2024 11:33-0400 Respiratory rate 16 /min Dr. Jazzy Yañez MD Work Phone: [facility] 10-08-2024 11:33-0400 SaO2% (BldA) [Mass fraction] 99 % Dr. Jazzy Yañez MD Work Phone: [facility] 10-08-2024 11:33-0400 Systolic blood pressure 132 mm[Hg] Dr. Jazzy Yañez MD Work Phone: [facility] 10-08-2024 08:24-0400 Body height 165.[address] Jazzy Yañez MD Work Phone: [facility] 10-08-2024 08:24-0400 Body mass index (BMI) [Ratio] 30.4 kg/m2 Dr. Jazzy Yañez MD Work Phone: [facility] 10-08-2024 08:24-0400 Body weight 82.[address] Jazzy Yañez MD Work Phone: [facility] 09-29-2024 15:57-0400 Body height 165.[address] Jazzy Yañez MD Work Phone: [facility] 09-29-2024 15:57-0400 Body mass index (BMI) [Ratio] 31.1 kg/m2 Dr. Jazzy Yañez MD Work Phone: [facility] 09-29-2024 15:57-0400 Body temperature 97.4 [degF] Dr. Jazzy Yañez MD Work Phone: [facility] 09-29-2024 15:57-0400 Body weight 84.[address] Jazzy Yañez MD Work Phone: [facility] 09-29-2024 15:57-0400 Diastolic blood pressure 78 mm[Hg] Dr. Jazzy Yañez MD Work Phone: [facility] 09-29-2024 15:57-0400 Heart rate 101 /min Dr. Jazzy Yañez MD Work Phone: [facility] 09-29-2024 15:57-0400 Respiratory rate 16 /min Dr. Jazzy Yañez MD Work Phone: [facility] 09-29-2024 15:57-0400 SaO2% (BldA) [Mass fraction] 98 % Dr. Jazzy Yañez MD Work Phone: [facility] 09-29-2024 15:57-0400 Systolic blood pressure 132 mm[Hg] Dr. Jazzy Yañez MD Work Phone: [facility] 09-14-2021 11:00-0400 Body height 165.[address] Jazzy Yañez Work Phone: [facility] Work Phone: 09-14-2021 11:00-0400 Body mass index (BMI) [Ratio] 29.7 kg/m2 Dr. Jazzy Yañez Work Phone: [facility] Work Phone: 09-14-2021 11:00-0400 Body temperature 97.5 [degF] Dr. Jazzy Yañez Work Phone: [facility] Work Phone: 09-14-2021 11:00-0400 Body weight 81.[address] Jazzy Yañez Work Phone: [facility] Work Phone: 09-14-2021 11:00-0400 Diastolic blood pressure 82 mm[Hg] Dr. Jazzy Yañez Work Phone: [facility] Work Phone: 09-14-2021 11:00-0400 Heart rate 84 /min Dr. Jazzy Yañez Work Phone: [facility] Work Phone: 09-14-2021 11:00-0400 Respiratory rate 16 /min Dr. Jazzy Yañez Work Phone: [facility] Work Phone: 09-14-2021 11:00-0400 SaO2% (BldA) [Mass fraction] 99 % Dr. Jazzy Yañez Work Phone: [facility] Work Phone: 09-14-2021 11:00-0400 Systolic blood pressure 140 mm[Hg] Dr. Jazzy Yañez Work Phone: [facility] Work Phone: 08-24-2021 08:05-0400 Body height 165.[address] Jazzy Yañez Work Phone: [facility] Work Phone: 08-24-2021 08:05-0400 Body mass index (BMI) [Ratio] 29.8 kg/m2 Dr. Jazzy Yañez Work Phone: [facility] Work Phone: 08-24-2021 08:05-0400 Body temperature 97.1 [degF] Dr. Jazzy Yañez Work Phone: [facility] Work Phone: 08-24-2021 08:05-0400 Body weight 81.[address] Jazzy Yañez Work Phone: [facility] Work Phone: 08-24-2021 08:05-0400 Diastolic blood pressure 80 mm[Hg] Dr. Jazzy Yañez Work Phone: [facility] Work Phone: 08-24-2021 08:05-0400 Heart rate 81 /min Dr. Jazzy Yañez Work Phone: [facility] Work Phone: 08-24-2021 08:05-0400 Respiratory rate 16 /min Dr. Jazzy Yañez Work Phone: [facility] Work Phone: 08-24-2021 08:05-0400 SaO2% (BldA) [Mass fraction] 99 % Dr. Jazzy Yañez Work Phone: [facility] Work Phone: 08-24-2021 08:05-0400 Systolic blood pressure 142 mm[Hg] Dr. Jazzy Yañez Work Phone: [facility] Work Phone: Encounters Encounter Date Encounter Type Care Provider Facility Start: 11-10-2024 End: 11-10-2024 Patient encounter procedure Giuliana Haywood DATA DESIGNER-C -[facility] Work Phone: Start: 11-10-2024 End: 11-10-[address] Jazzy Yañez MD Work Phone: [facility] Start: 10-20-2024 End: 10-20-2024 Patient encounter procedure Giuliana Haywood DATA DESIGNER-C -[facility] Work Phone: Start: 10-20-2024 End: 10-20-[address] Jazzy Yañez MD Work Phone: -[facility] Start: 10-08-2024 End: 10-08-2024 Emergency department patient visit Dr. Jazzy Yañez MD Work Phone: -Emergency Department Work Phone: Start: 10-06-2024 End: 10-06-[address] Jazzy Yañez MD Work Phone: -Laboratory Start: 10-06-2024 End: 10-06-2024 Patient encounter procedure Giuliana Haywood DATA DESIGNER-C -Laboratory Work Phone: Start: 10-06-2024 End: 10-06-2024 ambulatory Giuliana Haywood Facility:[facility] Start: 09-29-2024 End: 09-29-2024 Patient encounter procedure Giuliana Haywood DATA DESIGNER-C -[facility] Work Phone: Start: 09-29-2024 End: 09-29-[address] Jazzy Yañez MD Work Phone: -[facility] Start: 12-07-2022 End: 12-07-2022 Subsequent hospital visit by physician Ildefonso Torre DPMarcela Work Phone: [facility] Comment on above: Stress fracture, rig ht tibia, initial encounter for fracture Start: 11-28-2022 Transcribe Orders Ildefonso bell DPM Work Phone: [facility] Central Scheduling Comment on above: Stress fracture, rig ht tibia, initial encounter for fracture (Primary Dx) Start: 07-14-2022 End: 07-14-2022 Non-patient / Non-visit Dr. Jazzy Yañez Work Phone: [facility] Start: 07-14-2022 End: 07-14-[address] Jazzy Yañez Work Phone: [facility] Work Phone: Start: 07-14-2022 End: 07-14-[address] Jazzy Yañez Work Phone: [facility]-Pulmonary Services/Neurology Start: 12-24-2021 End: 12-24-2021 Emergency department patient visit [facility] Start: 09-14-2021 End: 09-14-[address] Jazzy Yañez Work Phone: [facility] Start: 08-24-2021 End: 08-24-[address] Jazzy Yañez Work Phone: [facility] Start: 05-11-2021 End: 05-11-2021 Emergency department patient visit [facility] Start: 11-21-2016 End: 11-26-2016 Ambulatory SULLY GARCIA Facility:B Start: 10-17-2016 End: 10-21-2016 Ambulatory SULLY GARCIA Facility:[facility] Procedures Date Procedure Procedure Detail Performing [...] or older (1 - 1-dose 60+ series) [facility] Start: 10-08-2024 [facility] Start: 11-24-2022 COVID-19 Vaccine ( season) COVID-19 Vaccine ( season) [facility] Start: 11-24-2022 Influenza vaccination Influenza Vacc ine (#1) [facility] Start: 07-05-2021 COVID-19 Vaccine (3 - Booster for Moderna series) COVID-19 Vaccine (3 - Booster for Moderna series) [facility] Start: 2018 Zoster Vaccines (1 o f 2) Zoster Vaccines (1 of 2) [facility] Start: 2008 Screening for malign ant neoplasm of breast Mammogram [facility] Start: 1998 Screening for malign ant neoplasm of cervix [facility] Start: 1989 Screening for malign ant neoplasm of cervix Pap Smear [facility] Start: 07-22-1987 DTaP/Tdap/Td Vaccine s (1 - Tdap) DTaP/Tdap/Td Vaccines (1 - Tdap) [facility] Start: 1986 Diabetes mellitus screening Diabetes Screening [facility] Start: 1986 Hepatitis C screening Hepatitis C Sc reening [facility] Start: 1980 Depression Screening Depression Scre ening [facility] Start: 1974 Pneumococcal Vaccine : Pediatrics (0 to 5 Years) and At-Risk Patients (6 to 64 Years) (1 - PCV) Pneumococcal Vaccine: Pediatrics (0 to 5 Years) and At-Risk Patients (6 to 64 Years) (1 - PCV) [facility] Start: 1969 MMR Vaccines (1 of 1 - Standard series) MMR Vaccines (1 of 1 - Standard series) [facility] Start: 1968 Hepatitis B Vaccines (1 of 3 - 3-dose series) Hepatitis B Vaccines (1 of 3 - 3-dose series) [facility] Start: 1968 HIV screening HIV Screening [facility] Start: 1968 Lipid panel Lipid Panel [facility] Start: 1968 Screening for malign ant neoplasm of colon [facility] Basic metabolic 2008 panel with ionized calcium - Serum or Plasma [facility] C reactive protein [Mass/volume] in Serum or Plasma [facility] Complete blood count [facility] MG Breast - bilatera l Screening [facility] Work Phone: End: 12-07-2022 MR Ankle - right WO contrast [facility] Work Phone: Comment on above: Once for 1 Occurrenc es starting 12/07/2022 until 12/07/2022 OUTSIDE PROCEDURE SCAN OUTSIDE P ROCEDURE SCAN Procedures Ordered: 12/06/2022 [facility] Comment on above: Ordered: 12/06/2022 Patient Education Abdominal Pain ED Dehydration (Adult) ED Renal Insufficiency [facility] Work Phone: T4 free measurement [facility] Thyroid stimulating hormone measurement [facility] Triiodothyronine, fr ee measurement [facility] Urate [Mass/volume] in Serum or Plasma [facility] US Thyroid gland [facility] Work Phone: Payers Date Payer Category Payer Self-pay [id number] 2024 Unknown [id number] 2022 Unknown 2016 Medicaid [id number] 1970 Unknown [id number] 2. [id number] 1970 Unknown [id number] .. [id number] Unknown [id number] Unknown [id number] Unknown [id number] Unknown [id number] Unknown [id number] Unknown [id number] Social History Date Type Detail Facility Start: 08-24-2021 End: 09-14-2021 Tobacco smoking status WYIS Unknown if ever smoked [facility] Start: 1970 Sex Assigned At Female [facility] Start: 09-14-2021 Tobacco smoking stat us WYIS Smokes tobacco daily [facility] Start: 05-11-2021 Alcohol intake Ex-drinker (finding) [facility] Start: 05-11-2021 History of Social function [facility] Start: 05-11-2021 Tobacco use panel [facility] Start: 1970 Sex Assigned At Not on file [facility] Start: 11-26-2022 End: 12-06-2022 Exposure to SARS-CoV-2 (event) Not sure [facility] Start: 10-08-2024 Tobacco smoking stat us WYIS Ex-smoker (finding) [facility] Mental Status Date Assessment Result Facility 10-08-2024 Cognitive function Level Of Cons ciousness Awake;Alert;Appropriate;Follow s Commands [facility] Work Phone: Radiology Diagnostic study note 10-08-2024 Note Date & Type Note Facility 10-08-2024 Radiology Diagnostic study note [facility] Imaging Services [address] [place] [address] Abdomen/Pelvis W IV Cont ONLY MR#: [id number] Acct: [id number] Name: ARABELLA MO Rep #: [id number] : [id number] F 54 From: Pricila Patricia MD PCP: Dr. Jazzy Yañez MD Status: R EG ER Study:Abdomen/Pelvis W IV Cont ONLY Date of E xam: 10/08/24 Exam# [id number] Ordering Dr: Brendan Patricia DO EXAM: CT [...] Colonic diverticulosis without acute diverticulitis. Reading Location: [facility] CC: Dr. Jazzy Yañez MD; Dr. Brendan Patricia DO ~ Telephone Lineman: Signed [facility] Discharge instructions 10-08-2024 Note Date & Type Note Facility 10-08-2024 Hospital Discharg e instructions Additional Instructions CT abdomen pelvis diverticulosis without diverticulitis. Labs white count was 18 however you are been on steroids. No infectious findings noted. Your creatinine 1.39 today decreased from yesterday. Continue oral fluids for hydration. Follow-up your doctor recheck labs. Take medication as prescribed. [facility] Work Phone: Evaluation note 09-29-2024 Note Date & Type Note Facility 09-29-2024 Evaluation note Diagnosis Onset Date Resolution Gout acute September 29, 2024 3:51pm Thyroid nodule acute September 29, 2024 3:51pm Bilateral foot pain chronic September 29, 2024 3:51pm [facility] Work Phone: Evaluation note 09-29-2024 Note Date & Type Note Facility 09-29-2024 Evaluation note Diagnosis Onset Date Resolution Gout acute September 29, 2024 3:51pm Thyroid nodule acute September 29, 2024 3:51pm Bilateral foot pain chronic September 29, 2024 3:51pm Rash and nonspecific skin eruption acute October 20, 2024 3:17pm [facility] Work Phone: Evaluation note Note Date & Type Note Facility Evaluation note Diagnosis Onset Date Breast cancer screening acut e Gout acute Thyroid nodule acute Hypertension [facility] Work Phone: Evaluation note Note Date & Type Note Facility Evaluation note Diagnosis Onset Date Breast cancer screening acut e Gout acute Thyroid nodule acute Hypertension chronic Gout acute Thyroid nodule acute Hypertension [facility] Work Phone: Evaluation note Note Date & Type Note Facility Evaluation note No assessment information availa [facility] Work Phone: Evaluation note Note Date & Type Note Facility Evaluation note Diagnosis Stress fracture, right tibia, initial encounter for fracture documented in this encounter [facility] Evaluation note Note Date & Type Note Facility Evaluation note Diagnosis Stress fracture, right tibia, initial encounter for fracture- Primary Stress fracture, right tibia, initial encounter for fracture documented in this encounter [facility] Reason for referral (narrative) Note Date & Type Note Facility Reason for referral (narrative) No reason for referral information available [facility] Work Phone: Summary Purpose Family History No Family History Records Found Relationship Condition Age at Onset Recorded Date/T juve mother Diabetes mellitus Unknown Hypertension Unknown father Malignant neoplasm Unknown Advance Directives No Advanced Directives Records Found Advance Directive Response Recorded Date/ Time Living Will No September 01, 2020 1 1:30am Power of Compass Operator No September 01, 2020 11:30am Advance Directive Response Recorded Date/ Time Do you have a Healthcare Power of Compass Operator? No October 08, 2024 9:46am Chief [...] foot pain September 29, 2024 3:51p m Chief Complaint Admit Date ACUTE JOINT PAIN September 29, 2024 3:51p m INT LAB ORDERS October 06, 2024 11:1 1am gen October 08, 2024 8:23 am RASH ALL OVER October 20, 2024 3:17 pm Reason for Visit Admit Date Gout September 29, 2024 3:51p m Thyroid nodule September 29, 2024 3:51p m Bilateral foot pain September 29, 2024 3:51p m Rash and nonspecific skin eruption October 20, 2024 3:17pm Chief Complaint Admit Date ACUTE JOINT PAIN September 29, 2024 3:51p m INT LAB ORDERS October 06, 2024 11:1 1am gen October 08, 2024 8:23 am RASH ALL OVER October 20, 2024 3:17 pm 1 M FU November 10, 2024 3: 51pm Reason for Referral Specialty Diagnoses / Procedures Referred By Contac t Referred To Contact Radiology Diagnoses Stress fracture, right tibia, initial encounter for fracture Procedures MR ankle right wo contrast Ildefonso Torre, DPM [address] [place] [phone] Referral ID Status Reason Start Date Expiration Date Visits Re quested Visits Authorized [id number] Closed 11/28/2022 05/27/2023 1 1 Additional Source Comments INFORMATION SOURCE (unrecogn ized section and content) DATE CREATED AUTHOR 09/19/2017 [facility] ([place]) DATE CREATED AUTHOR AUTHOR'S ORGANIZ ATION 12/29/2021 [facility] DATE CREATED AUTHOR AUTHOR'S ORGANIZ ATION [facility] Goals (unrecognized section and content) Goals [...] MD Attending Provider, Referring Pr ovider Active Fire Safety Director Relationship Specialty Start Date End Date MarlonJoelle hawthornebe B [address] [place] [phone] PCP - General Internal Medicine 12/06/22 Marlonmarine Jesusongbe B [address] [place] [phone] Internal Medicine 12/06/22 Fire Safety Director Relationship Specialty Start Date End Date Jesus Yañezongbe B PCP - General 05/11/21 12/05/22 Marlonrafae Jesusongbe B [address] [place] [phone] PCP - General Internal Medicine 12/06/22 Marlonrafalinda Jesusongbe B [address] [place] [phone] Internal Medicine 12/06/22 Team Status: Active Member Role/Relationship Status Dates Dr. Jazzy Yañez MD Family Provider Active Dr. Jazzy Yañez MD Primary Care Provider Active Team Status: Inactive Member Role/Relationship Status Dates Dr. Jazzy Yañez MD Primary Care Provider Active Start: September 29, 2024 End: September 29, 2024 Dr. Jazzy Yañez MD Referring Provider Active Start: September 29, 2024 End: September 29, 2024 Giuliana Ungerer , DATA DESIGNER-C Attending Provider Active Start: September 29, 2024 End: September 29, 2024 Team Status: Active Member Role/Relationship Status Dates Dr. Jazzy Yañez MD Primary Care Provider Active Team Status: Active Member Role/Relationship Status Dates Dr. Jazzy Yañez MD Primary Care Provider Active Start: October 06, 2024 Giuliana Ungerer , DATA DESIGNER-C Attending Provider Active Start: October 06, 2024 Giuliana Ungerer , DATA DESIGNER-C Referring Provider Active Start: October 06, 2024 Team Status: Inactive Member Role/Relationship Status Dates Dr. Jazzy Yañez MD Primary Care Provider Active Start: October 08, 2024 End: October 08, 2024 Dr. Brendan Patricia DO Emergency Provider Active Start : October 08, 2024 End: October 08, 2024 Team Status: Inactive Member Role/Relationship Status Dates Dr. Jazzy Yañez MD Primary Care Provider Active Start: October 06, 2024 End: October 06, 2024 Giuliana Ungerer , DATA DESIGNER-C Attending Provider Active Start: October 06, 2024 End: October 06, 2024 Giuliana Ungerer , DATA DESIGNER-C Referring Provider Active Start: October 06, 2024 End: October 06, 2024 Team Status: Inactive Member Role/Relationship Status Dates Dr. Jazzy Yañez MD Primary Care Provider Active Start: October 08, 2024 End: October 08, 2024 Dr. Brendan Patricia DO Attending Provider Active Start : October 08, 2024 End: October 08, 2024 Dr. Brendan Patricia DO Emergency Provider Active Start : October 08, 2024 End: October 08, 2024 Team Status: Inactive Member Role/Relationship Status Dates Dr. Jazzy Yañez MD Primary Care Provider Active Start: October 20, 2024 End: October 20, 2024 Dr. Jazzy Yañez MD Referring Provider Active Start: October 20, 2024 End: October 20, 2024 SHERMAN Lucero Attending Provider Active Start: October 20, 2024 End: October 20, 2024 Team Status: Inactive Member Role/Relationship Status Dates SHERMAN Lucero Attending Provider Active Start: November 10, 2024 End: November 10, 2024 Dr. Jazzy Yañez MD Primary Care Provider Active Start: November 10, 2024 End: November 10, 2024 Dr. Jazzy aYñez MD Referring Provider Active Start: November 10, 2024 End: November 10, 2024 Reason for Visit (unrecogniz ed section and content) Specialty Diagnoses / Procedures Referred By Bud gould Referred To Contact Radiology Diagnoses Stress fracture, right tibia, initial encounter for fracture Procedures MR ankle right wo contrast Ildefonso Torre, JACKELYN [address] [place] [phone] Referral ID Status Reason Start Date Expiration Date Visits Re quested Visits Authorized [id number] Closed 11/28/2022 05/27/2023 1 1 FOR RECORDS [...] BE BASED ON THE PRIMARY CLINICAL RECORDS. [employer] provides no warranty or guarantee of the accuracy or completeness of information in this document.
[2025-01-09 16:56] LABS: Hematocrit 42.4 % (37-47); Hemoglobin 14.1 g/dL (12.0-15.0); Immature Granulocytes Count 0.060 X10^3/uL (0.0-0.0); Mean Corp Hgb Conc 33.3 g/dL (32-36); Mean Corpuscular Volume 89.1 fL (81-99); Mean Platelet Vol. 10.2 fl (6.2-12.0); NRBC Flagged by Analyzer 0 % (0-5); Platelet Count 366 K/mm3 (150-450); RBC Distribution Width CV 13.2 % (11.6-14.6); RBC Distribution Width SD 42.9 fl (35.1-43.9); Red Blood Count 4.76 M/mm3 (4.2-5.4); White Blood Count 11.5 K/mm3 (4.4-11.0)
[2025-01-09 17:43] LABS: Uric Acid 4.3 mg/dL (2.6-6.0)
== END | disposition home or self-care (01) ==
PROVIDERS: PCP Internal Medicine; Referring Provider Internal Medicine; Visit Provider Internal Medicine
DX: M1A.9XX0 Chronic gout, unspecified, without tophus (tophi) (principal)
CPT/HCPCS: 36415; 84550; 85025

== ENCOUNTER → 2025-01-19 | Outpatient (CLI) | payer BC, SELFPAY ==
[2025-01-19 18:26] LABS: AST(SGOT) 22 U/L (<=31); Alanine Aminotransfer ALT/SGPT 19 U/L (<=34); Albumin, Serum 4.5 g/dL (3.5-5.0); Alkaline Phosphatase 70 U/L (35-104); Anion Gap 13 (5-15); BUN 20 mg/dL (4-19); BUN/Creat Ratio 16.8 RATIO (10-20); CRP 32.60 mg/L (0.0-3.0); Calcium,Total 9.9 mg/dL (7.6-11.0); Carbon Dioxide 24.3 mmol/L (21.0-32.0); Chloride 101 mmol/L (98-108); Globulin 3.3 g/dL (2.2-4.2); Glucose 108 mg/dL (70-99); Potassium 4.2 mmol/L (3.3-5.1)
[2025-01-21 13:08] LABS: ANTINUCLEAR ANTIBODIES DIRECT Negative (Negative)
== END | disposition home or self-care (01) ==
LOC: MTLAB 15:41
PROVIDERS: PCP Internal Medicine; Referring Provider Internal Medicine; Visit Provider Internal Medicine
DX: M19.90 Unspecified osteoarthritis, unspecified site (principal); I10 Essential (primary) hypertension
CPT/HCPCS: 36415; 80053; 85652; 86038; 86140; 86200; 86225; 86431